=== PATIENT | female | born 1965 | race Caucasian/White ===

== ENCOUNTER 2017-10-23 17:41 | Emergency (ER) | payer MEDICARE ==
--- NOTE | 2017-10-23 18:35 | ER Document Report ---
HPI - HPI Pain Level: 5 Context: Patient is a 52-year-old female with a past medical history significant for fibromyalgia, arthritis who presents emergency department the chief complaint of fall. Patient states that she was carrying her groceries into her home yesterday when she lost balance her right knee buckled underneath her and she fell landing on her right knee and her back. She states that she did hit her head but denies any loss of consciousness, headache, nausea, vomiting, altered mental status, lethargy or confusion. She states that her primary source of pain is her lower back worse on the right side. Patient does admit to previous back surgery at L4-L5. She also admits to pain in her right knee worse with bearing weight and ambulation. Patient states that she has been taking Robaxin and tramadol at home for pain. She denies any urinary/stool incontinence, saddle anesthesia. - CONSTITUTIONAL Constitutional: DENIES: Fever, Chills - EENT EENT: DENIES: Sore Throat, Ear Pain, Eye problems - NEURO Neurology: DENIES: Headache, Weakness, Vision blurred, Dizzinesss / Vertigo - CARDIOVASCULAR Cardiovascular: DENIES: Chest pain - RESPIRATORY Respiratory: DENIES: Trouble Breathing, Coughing - GASTROINTESTINAL Gastrointestinal: DENIES: Abdominal Pain, Black / Bloody Stools - URINARY Urinary: DENIES: Dysuria, Urgency, Frequency - REPRODUCTIVE Reproductive: DENIES: : - MUSCULOSKELETAL Musculoskeletal: REPORTS: Extremity pain - right knee Past Medical History - Social History Smoking Status: Current Every Day Smoker Chew tobacco use (# tins/day): No Frequency of alcohol use: Occasional Drug Abuse: None Family History: Reviewed & Not Pertinent Patient has suicidal ideation: No Patient has homicidal ideation: No - Past Medical History Cardiac Medical History: Reports: Hx Hypercholesterolemia, Hx Hypertension Pulmonary Medical History: Reports: Hx COPD Renal/ Medical History: Denies: Hx Peritoneal Dialysis GI Medical History: Reports: Hx Gastroesophageal Reflux Disease Musculoskeltal Medical History: Reports Hx Arthritis, Reports Hx Fibromyalgia Psychiatric Medical History: Reports: Hx Depression - anxiety Traumatic Medical History: Reports: Hx Fractures - WRIST Past Surgical History: Reports: Hx Section, Hx Cholecystectomy, Hx Hysterectomy, Hx Orthopedic Surgery - left and right knee replacement, spinal fusion lower - Immunizations Hx Diphtheria, Pertussis, Tetanus Vaccination: No Hx Pneumococcal Vaccination: 06/29/09 Vertical Provider Document - CONSTITUTIONAL Agree With Documented VS: Yes Notes: PHYSICAL EXAM GENERAL: Alert, interacts well. HEAD: Normocephalic, atraumatic. EYES: Pupils equal, round, and reactive to light. Extraocular movements intact. ENT: Oral mucosa moist, tongue midline. NECK: Full range of motion. Supple. Trachea midline. EXTREMITIES: Moves all 4 extremities spontaneously. No edema, radial and dorsalis pedis pulses 2/4 bilaterally. No cyanosis. Back: Diffuse bilateral paralumbar muscular skeletal pain that is reproducible palpation without any focal vertebral tenderness, deformities. 5 out of 5 strength both distally and proximally bilateral lower extremities. 2+ patellar reflexes bilaterally. Sensation grossly intact in the bilateral lower extremities. Patient is able to ambulate without difficulty. NEUROLOGICAL: Alert and oriented x4. Normal speech. PSYCH: Normal affect, normal mood. SKIN: Warm, dry, normal turgor. No rashes or lesions noted. - INFECTION CONTROL TRAVEL OUTSIDE OF THE [place] IN LAST 30 DAYS: No Course - Re-evaluation Re-evalutation: 10/23/17 19:33 Lumbar x-ray shows possible deformity of L2 CT was ordered for additional imaging of this area. 10/23/17 20:14 CT shows evidence of osteoarthritis of L2 without any evidence of acute fracture injury. Patient's pain has been controlled with muscle relaxers and tramadol. Did discuss these results with the patient and indicated to follow- up with primary care for any further discomfort.She presents with low back pain without signs of spinal cord compression, cauda equina syndrome, infection, aneurysm, or other serious etiology. The patient is neurologically intact. Given the extremely low risk of these diagnoses further testing and evaluation for these possibilities does not appear to be indicated at this time. The patient has been instructed to return if the symptoms worsen or change in any way. - Vital Signs Vital signs: Temp Pulse Resp BP Pulse Ox 98.7 F 97 20 130/80 H 94 10/23/17 17:51 10/23/17 17:51 10/23/17 17:51 10/23/17 17:51 10/23/17 17:51 - Diagnostic Test Radiology reviewed: Image reviewed, Reports reviewed Discharge - Discharge Clinical Impression: Back pain Qualifiers: Back pain location: low back pain Chronicity: chronic Back pain laterality: midline Sciatica presence: without sciatica Qualified Code(s): M54.5 - Low back pain Knee pain Qualifiers: Chronicity: chronic Laterality: right Qualified Code(s): M25.561 - Pain in right knee Condition: Good Disposition: HOME, SELF-CARE Additional Instructions: LOW BACK PAIN: Three out of every four people will have an episode of disabling back pain during their lifetime. Most commonly the pain is due to straining of the muscles and ligaments in the low back. Usual treatment includes: (1) Rest on a firm surface. Avoid lying on your stomach. (2) Ice pack the painful area. After a few days, gentle heat may be used intermittently to relax the area, or ice packs can be continued. (3) Medication may be needed -- muscle relaxers and antiinflammatory medicines are commonly used. (4) As the back improves, exercises are prescribed to strengthen the back and abdominal muscles. Your doctor will advise you on the proper care for your back at each stage in your recovery. You may be better in a few days -- or healing may take several weeks. If new symptoms of a "herniated disc" (radiation of pain, numbness, or tingling down the back of the leg or weakness in the leg) occur, you should be re-examined. Further testing may be necessary. MUSCLE RELAXERS: Muscle relaxing medications are usually prescribed for acute muscle spasm or injury to the neck and back. They are often combined with antiinflammatory pain medication for increased relief. You may stop the muscle relaxer when the pain and stiffness have improved. Start the medication again if spasms recur. Muscle relaxers may cause drowsiness, especially with the first dose. Do not operate machinery or drive while under the effects of the medication. Most muscle relaxers last up to 24 hours. Do not combine the medication with alcohol. ICE PACKS: Apply ice packs frequently against the painful area. Many different schedules are recommended, such as "20 minutes on, 20 minutes off" or "one hour ice, two hours rest." If you need to work, you may need to go longer between ice treatments. You should plan to have the area ice packed AT LEAST one fourth of the time. The ice should be applied over the wrap, tape, or splint, or over a layer of cloth -- not directly against the skin. Some ice bags have a built-in cloth and can be put directly on the skin. WARM PACKS: After approximately two days, apply gentle heat (such as a heating pad or hot water bottle) for about 20 to 30 minutes about every two hours -- at least four times daily. Warmth and elevation will help you make a more rapid recovery , and will ease the pain considerably. Do not use HOT heat, and never apply heat for longer than 30 minutes. The continuous heat can invisibly damage skin and muscles -- even when no burn is seen on the surface. Damaged muscles can make you MORE sore. FOLLOW-UP CARE: If you have been referred to a physician for follow-up care, call the physician s office for an appointment as you were instructed or within the next two days. If you experience worsening or a significant change in your symptoms, notify the physician immediately or return to the Emergency Department at any time for re-evaluation. Prescriptions: Cyclobenzaprine HCl [Flexeril 10 mg Tablet] 10 mg PO TIDP PRN #15 tab PRN Reason: Ibuprofen [Motrin 800 mg Tablet] 800 mg PO Q8H PRN #30 tab PRN Reason:
--- NOTE | 2017-10-23 19:16 | RADIOLOGY REPORT (SQ) ---
EXAM DESCRIPTION: L SPINE WHOLE COMPLETED DATE/TIME: 10/23/2017 7:07 pm REASON FOR STUDY: fall COMPARISON: None. NUMBER OF VIEWS: Five views including obliques. TECHNIQUE: AP, lateral, oblique, and sacral radiographic images acquired of the lumbar spine. LIMITATIONS: None. FINDINGS: MINERALIZATION: Normal. SEGMENTATION: Normal. No transitional anatomy. ALIGNMENT: Grade 1 anterolisthesis L4 on L5 status post surgical fusion. Alignment is otherwise norm al. VERTEBRAE: There is slight irregularity involving the anterior column of the L2 vertebral body which could represents a nondisplaced fracture. Vertebral body heights are maintained. DISCS: There is mild multilevel degenerative disc disease above fusion level. POSTERIOR ELEMENTS: Pedicles and facets are intact. No pars defect or posterior arch defects. HARDWARE: Intact. PARASPINAL SOFT TISSUES: Normal. PELVIS: Intact as visualized. No fractures or worrisome bone lesions. SI joints intact. OTHER: No other significant finding. IMPRESSION: SLIGHT IRREGULARITY INVOLVING THE ANTERIOR COLUMN OF THE L2 VERTEBRAL BODY WHICH COULD R EPRESENT A NONDISPLACED FRACTURE. CORRELATE WITH LEVEL OF PAIN. NO ADDITIONAL ACUTE OSSEOUS ABNORMALITY OR HARDWARE COMPLICATION IDENTIFIED. TECHNICAL DOCUMENTATION: JOB ID: [id number] [employer]- All Rights Reserved Reading location - IP/workstation name: [email or web address]
--- NOTE | 2017-10-23 19:17 | RADIOLOGY REPORT (SQ) ---
EXAM DESCRIPTION: KNEE RIGHT 4 VIEWS COMPLETED DATE/TIME: 10/23/2017 7:07 pm REASON FOR STUDY: fall COMPARISON: None. NUMBER OF VIEWS: Four views. TECHNIQUE: AP, lateral, and both oblique radiographic images acquired of the right knee. LIMITATIONS: None. FINDINGS: MINERALIZATION: Normal. BONES: No acute fracture or dislocation. No worrisome bone lesions. JOINT: Total knee arthroplasty without complication. SOFT TISSUES: No soft tissue swelling. No radio-opaque foreign body. OTHER: No other significant finding. IMPRESSION: NO ACUTE OSSEOUS ABNORMALITY OR HARDWARE COMPLICATION IDENTIFIED. TECHNICAL DOCUMENTATION: JOB ID: [id number] [employer]- All Rights Reserved Reading location - IP/workstation name: [email or web address]
[2017-10-23] MEDS ORDERED: TRAMADOL HCL 50 MG TABLET PO ONE (19:18)
[2017-10-23] MEDS ORDERED: ONDANSETRON 4 MG TAB.RAPDIS PO ONE (19:18)
--- NOTE | 2017-10-23 19:56 | RADIOLOGY REPORT (SQ) ---
EXAM DESCRIPTION: CT LUMBAR SPINE WITHOUT COMPLETED DATE/TIME: 10/23/2017 7:48 pm REASON FOR STUDY: L2 possible fx on xray COMPARISON: Correlation made to radiograph performed earlier on the same day. TECHNIQUE: Axial images acquired through the lumbar spine without intravenous contrast. Images revi ewed with lung, soft tissue and bone windows. Reconstructed coronal and sagittal MPR images reviewed . All images stored on PACS. All CT scanners at this facility use dose modulation, iterative reconstruction, and/or weight based d osing when appropriate to reduce radiation dose to as low as reasonably achievable (ALARA). [facility]: Dose Right [facility]: CareDose [facility]: Dose Right [facility]: Teradose 4D [facility]: [employer] RADIATION DOSE: mGy. LIMITATIONS: None. FINDINGS: SEGMENTATION: Normal. No transitional anatomy. ALIGNMENT: Normal. VERTEBRAL BODIES: No fractures. No dislocation. No acute findings. DISCS: Status post surgical fusion of the L4-L5 level. There is mild multilevel degenerative disc di sease above and below hardware levels most notable at the L1-L2 level with there is anterior osteophy te for october. PEDICLES, TRANSVERSE PROCESSES: No fractures. No dislocation. No acute findings. FACETS, POSTERIOR ELEMENTS: Multilevel facet arthropathy. No fractures. No dislocation. No spinal stenosis. HARDWARE: Posterior interbody fusion hardware L4-L5 without complication identified. VISUALIZED RIBS: No fractures. SOFT TISSUES: No significant or acute finding in adjacent soft tissues. OTHER: No other significant finding. IMPRESSION: NO ACUTE OSSEOUS ABNORMALITY OR HARDWARE COMPLICATION. DEGENERATIVE CHANGE ABOVE. TECHNICAL DOCUMENTATION: JOB ID: [id number] Quality ID # [id number]: Final reports with documentation of one or more dose reduction techniques (e.g., Au tomated exposure control, adjustment of the mA and/or kV according to patient size, use of iterative reconstruction technique) 2010 [employer]- All Rights Reserved Reading location - IP/workstation name: [email or web address]
[2017-10-23] MEDS ORDERED: CYCLOBENZAPRINE HCL 10 MG TABLET PO ONE (20:04)
[2017-10-23 22:00] VITALS: BP 127/79
== END 2017-10-23 20:30 | disposition home or self-care (01) ==
LOC: ER 17:41
DX: M54.5 Low back pain (principal); M25.561 Pain in right knee; W01.0XXA Fall on same level from slipping, tripping and stumbling without subsequent striking against object, initial encounter; Y93.G9 Activity, other involving cooking and grilling; Y92.007 Garden or yard of unspecified non-institutional (private) residence as the place of occurrence of the external cause; F17.200 Nicotine dependence, unspecified, uncomplicated; E78.00 Pure hypercholesterolemia, unspecified; I10 Essential (primary) hypertension; J44.9 Chronic obstructive pulmonary disease, unspecified; Z90.49 Acquired absence of other specified parts of digestive tract; Z90.710 Acquired absence of both cervix and uterus; Z96.653 Presence of artificial knee joint, bilateral; Z98.1 Arthrodesis status
CPT/HCPCS: 99284; 73564; 72110; 72131; A9270 ×3; S0119

== ENCOUNTER 2019-01-18 18:43 | Emergency (ER) | payer MEDICARE ==
[2019-01-18 22:49] LABS: APPEARANCE,URINE SLIGHTLY-CLOUDY; BILIRUBIN,URINE NEGATIVE (NEGATIVE); COLOR,URINE YELLOW; GLUCOSE, URINE NEGATIVE (NEGATIVE); KETONES,URINE NEGATIVE (NEGATIVE); LEUKOCYTE ESTERASE,URINE NEGATIVE (NEGATIVE); NITRITE,URINE NEGATIVE (NEGATIVE); PROTEIN,URINE NEGATIVE (NEGATIVE); URINE SPECIFIC GRAVITY 1.008; UROBILINOGEN,URINE NEGATIVE mg/dL (<2.0)
[2019-01-18] MEDS ORDERED: ACETAMINOPHEN 325 MG TABLET PO ONE (22:53)
[2019-01-19] MEDS ORDERED: ONDANSETRON HCL INJ/PF 4 MG/2 ML SDV IV ONE (00:39)
[2019-01-19] MEDS ORDERED: MORPHINE SULFATE 10 MG/ML INJ IV ONE (00:39)
--- NOTE | 2019-01-19 00:46 | ER Document Report ---
ED General - General Chief Complaint: Abdominal Pain Stated Complaint: ABDOMINAL PAIN Time Seen by Provider: 01/19/19 00:25 Primary Care Provider: EDGAR RIDDLE NP [Primary Care Provider] - Follow up as needed TRAVEL OUTSIDE OF THE [place] IN LAST 30 DAYS: No - HPI Notes: 53-year-old female to the emergency department with complaints of persistent left-sided abdominal pain for the past 2 weeks with associated diarrhea and nausea vomiting. States that she seen multiple times for this issue and she has been diagnosed with diverticulitis, urinary tract infection, constipation. She states that despite all these diagnoses and medicines to treat her she has continued to have pain. She states that she has an appointment with her GI specialist Dr. Pulido on morning for an EGD. She denies any fevers, chest pain, shortness of breath, leg swelling, headache, syncope. States that her pain does get worse with big deep breath and movement. States that she was seen at [facility] 3 nights ago and had a CT scan that was normal. She states that she was sent home with Phenergan. She uses tramadol and Robaxin at home and states has not been helping her. She has one kidney. She has an appt with her PCP tomorrow AM at 8:50. - Related Data Allergies/Adverse Reactions: Iodinated Contrast- Oral and IV Dye [IV Dye, Iodine Containing] Allergy (Verified 01/18/19 18:47) latex [Latex] Allergy (Verified 01/18/19 18:47) Sulfa (Sulfonamide Antibiotics) Allergy (Verified 01/18/19 18:47) Past Medical History - General Information source: Patient, Relative - Social History Smoking Status: Never Smoker Frequency of alcohol use: None Drug Abuse: None Lives with: Spouse/Significant other Family History: Reviewed & Not Pertinent - Past Medical History Cardiac Medical History: Reports: Hx Hypercholesterolemia, Hx Hypertension Pulmonary Medical History: Reports: Hx COPD Renal/ Medical History: Denies: Hx Peritoneal Dialysis GI Medical History: Reports: Hx Gastroesophageal Reflux Disease Musculoskeletal Medical History: Reports Hx Arthritis, Reports Hx Fibromyalgia Psychiatric Medical History: Reports: Hx Depression - anxiety Traumatic Medical History: Reports: Hx Fractures - WRIST Past Surgical History: Reports: Hx Section, Hx Cholecystectomy, Hx Hysterectomy, Hx Orthopedic Surgery - left and right knee replacement, spinal fusion lower - Immunizations Hx Diphtheria, Pertussis, Tetanus Vaccination: No Hx Pneumococcal Vaccination: 06/29/09 Review of Systems - Review of Systems Constitutional: denies: Chills, Fever EENT: No symptoms reported Cardiovascular: denies: Chest pain, Palpitations, Syncope, Dizziness, Lightheaded Respiratory: denies: Cough, Short of breath Gastrointestinal: Abdominal pain, Diarrhea, Nausea, Vomiting, Poor appetite Genitourinary: denies: Frequency, Flank pain, Hematuria Musculoskeletal: No symptoms reported Skin: No symptoms reported Hematologic/Lymphatic: No symptoms reported Neurological/Psychological: No symptoms reported -: Yes All other systems reviewed and negative Physical Exam - Vital signs Vitals: Temp Pulse Resp BP Pulse Ox 98.4 F 109 H 12 125/80 91 L 01/18/19 19:01 01/18/19 19:01 01/18/19 19:01 01/18/19 19:01 01/18/19 19:01 Interpretation: Normal - General General appearance: Appears well In distress: None - HEENT Head: Normocephalic, Atraumatic Eyes: Normal Pupils: PERRL - Respiratory Respiratory status: No respiratory distress Chest status: Nontender Breath sounds: Normal Chest palpation: Normal - Cardiovascular Rhythm: Regular Heart sounds: Normal auscultation Murmur: No - Abdominal Inspection: Morbidly Obese Distension: No distension Bowel sounds: Normal Tenderness: Tender - There is focal tenderness to palpation to the lateral aspect of the left abdomen just below the ribs. There is mild tenderness to palpation over the left lower quadrant. There is no CVA tenderness. There is no right lower quadrant abdominal pain. Negative McBurney's. Negative Israel's. No rebound, no guarding Organomegaly: No organomegaly - Neurological Neuro grossly intact: Yes Cognition: Normal Orientation: AAOx4 Benavides Coma Scale Eye Opening: Spontaneous Benavides Coma Scale Verbal: Oriented Prasanna Coma Scale Motor: Obeys Commands Prasanna Coma Scale Total: 15 Speech: Normal Motor strength normal: LUE, RUE, LLE, RLE Sensory: Normal - Psychological Associated symptoms: Normal affect, Normal mood - Skin Skin Temperature: Warm Skin Moisture: Dry Skin Color: Normal Course - Re-evaluation Re-evalutation: 01/19/19 01:57 Impression: Left side abdominal pain. She has been in several ERs this week -- had multiple CTs. She was seen here last night. Trended her labs -- they are very reassuring. No UTI on UA -- she is on Keflex currently. WBC WNL, no left shift, renal function reassuring, liver enzymes reassuring. Will discharge home. Will have her follow with PCP as scheduled tomorrow. Patient and agree with the plan. - Vital Signs Vital signs: Temp Pulse Resp BP Pulse Ox 98.4 F 109 H 12 125/80 91 L 01/18/19 19:01 01/18/19 19:01 01/18/19 19:01 01/18/19 19:01 01/18/19 19:01 - Laboratory Result Diagrams: 01/19/19 00:45 01/19/19 00:45 Laboratory results interpreted by me: 01/19/19 00:45 Total Protein 6.1 L Discharge - Discharge Clinical Impression: Left sided abdominal pain, Nausea & vomiting, Diarrhea Condition: Stable Disposition: HOME, SELF-CARE Instructions: Abdominal Pain ([facility]) Additional Instructions: FOLLOW UP WITH YOUR PRIMARY CARE SCHEDULED TOMORROW AND WITH YOUR GI SPECIALIST ON THURSDAY SCHEDULED. TAKE PHENERGAN YOU HAVE AT HOME FOR VOMITING. CONTINUE YOUR ROBAXIN. RETURN IF ANY CHEST, SHORTNESS OF BREATH, WORSENING ABDOMINAL PAIN, OR ANY OTHER CONCERNING SYMPTOMS. Referrals: EDGAR RIDDLE NP [Primary Care Provider] - Follow up tomorrow
[2019-01-19 01:06] LABS: ABSOLUTE BASOPHILS # (AUTO) 0.1 10^3/uL (0.0-0.2); ABSOLUTE EOSINOPHILS # (AUTO) 0.1 10^3/uL (0.0-0.6); ABSOLUTE LYMPHOCYTES (AUTO) 2.7 10^3/uL (0.5-4.7); ABSOLUTE MONOCYTES (AUTO) 0.6 10^3/uL (0.1-1.4); BASOPHILS % (AUTO) 0.6 % (0-2); EOSINOPHILS % (AUTO) 1.6 % (0-6); HEMATOCRIT 36.7 % (36.0-47.0); HEMOGLOBIN 12.5 g/dL (12.0-15.5); LYMPHOCYTES % (AUTO) 28.3 % (13-45); MEAN CORPUSCULAR HEMOGLOBIN 30.1 pg (27.0-33.4); MEAN CORPUSCULAR HGB CONC 33.9 g/dL (32.0-36.0); MEAN CORPUSCULAR VOLUME 89 fl (80-97); MONOCYTES % (AUTO) 6.5 % (3-13); PLATELET COUNT 238 10^3/uL (150-450); RED BLOOD COUNT 4.14 10^6/uL (3.72-5.28); RED CELL DISTRIBUTION WIDTH 13.1 % (11.5-14.0); TOTAL CELLS COUNTED % (AUTO) 100 %; WHITE BLOOD COUNT 9.5 10^3/uL (4.0-10.5)
[2019-01-19] MEDS ORDERED: MORPHINE SULFATE 10 MG/ML INJ IM ONE ×2 (01:08→01:48)
[2019-01-19] MEDS ORDERED: ONDANSETRON 4 MG TAB.RAPDIS PO ONE (01:08)
[2019-01-19 01:23] LABS: ALANINE AMINOTRANSFERASE 31 U/L (9-52); ALKALINE PHOSPHATASE 111 U/L (38-126); ANION GAP 7 (5-19); ASPARTATE AMINO TRANSFERASE 28 U/L (14-36); BILIRUBIN,DIRECT 0.2 mg/dL (0.0-0.4); BILIRUBIN,TOTAL 0.5 mg/dL (0.2-1.3); BLOOD UREA NITROGEN 11 mg/dL (7-20); CALCIUM 9.1 mg/dL (8.4-10.2); CARBON DIOXIDE 27 mmol/L (22-30); CHLORIDE 105 mmol/L (98-107); GLUCOSE 89 mg/dL (75-110); POTASSIUM 3.8 mmol/L (3.6-5.0); TOTAL PROTEIN 6.1 g/dL (6.3-8.2)
[2019-01-19 02:09] VITALS: BP 150/98
== END 2019-01-19 02:25 | disposition home or self-care (01) ==
LOC: ER 18:43
DX: R11.2 Nausea with vomiting, unspecified (principal); R19.7 Diarrhea, unspecified; R10.9 Unspecified abdominal pain; E66.01 Morbid (severe) obesity due to excess calories; E78.00 Pure hypercholesterolemia, unspecified; I10 Essential (primary) hypertension; J44.9 Chronic obstructive pulmonary disease, unspecified; Z90.49 Acquired absence of other specified parts of digestive tract; Z90.710 Acquired absence of both cervix and uterus; Z98.1 Arthrodesis status; Z96.653 Presence of artificial knee joint, bilateral; Z91.040 Latex allergy status; Z88.2 Allergy status to sulfonamides
CPT/HCPCS: 99284; 96372; 36415; 83690; 85025; 80053; 81001; A9270 ×2; J2270; S0119

== ENCOUNTER 2019-05-16 21:42 | Emergency (ER) | payer MEDICARE ==
[2019-05-16] MEDS ORDERED: ONDANSETRON HCL INJ/PF 4 MG/2 ML SDV IV ONE (22:19)
[2019-05-16] MEDS ORDERED: ASPIRIN 81 MG TABLET, CHEWABLE PO ONE (22:37)
[2019-05-16] MEDS ORDERED: IPRATROPIUM/ALBUTEROL 0.5-2.5 MG/3 ML AMPUL NEB ONE (22:37)
--- NOTE | 2019-05-16 22:43 | ER Document Report ---
ED Medical Screen (RME) - General Chief Complaint: Epigastric Pain Stated Complaint: CHEST PAIN,DIFFICULTY BREATHING Time Seen by Provider: 05/16/19 22:33 Primary Care Provider: EDGAR RIDDLE NP [Primary Care Provider] - Follow up as needed Mode of Arrival: Ambulatory Information source: Patient Notes: Patient presents complaining of chest pain epigastric pain. Patient states that she is recently getting over pneumonia and still has a cough although it is improving. Patient does put a history of COPD. I have greeted and performed a rapid initial assessment of this patient. A comprehensive ED assessment and evaluation of the patient, analysis of test results and completion of the medical decision making process will be conducted by additional ED providers. TRAVEL OUTSIDE OF THE [place] IN LAST 30 DAYS: No - Related Data Allergies/Adverse Reactions: Iodinated Contrast Media [IV Dye, Iodine Containing] Allergy (Verified 01/18/19 18:47) latex [Latex] Allergy (Verified 01/18/19 18:47) Sulfa (Sulfonamide Antibiotics) Allergy (Verified 01/18/19 18:47) Home Medications: Amilodipine. lexipro. simvistatin. heartburn Past Medical History - Social History Chew tobacco use (# tins/day): No Frequency of alcohol use: Occasional Drug Abuse: None - Past Medical History Cardiac Medical History: Reports: Hx Hypercholesterolemia, Hx Hypertension Pulmonary Medical History: Reports: Hx COPD Renal/ Medical History: Denies: Hx Peritoneal Dialysis GI Medical History: Reports: Hx Gastroesophageal Reflux Disease Musculoskeltal Medical History: Reports Hx Arthritis, Reports Hx Fibromyalgia Psychiatric Medical History: Reports: Hx Depression - anxiety Traumatic Medical History: Reports: Hx Fractures - WRIST Past Surgical History: Reports: Hx Section, Hx Cholecystectomy, Hx Hysterectomy, Hx Orthopedic Surgery - left and right knee replacement, spinal fusion lower - Immunizations Hx Diphtheria, Pertussis, Tetanus Vaccination: No Physical Exam - Vital signs Vitals: Temp Pulse BP Pulse Ox 98.0 F 107 H 113/76 99 05/16/19 21:58 05/16/19 21:58 05/16/19 21:58 05/16/19 21:58 - Respiratory Respiratory status: No respiratory distress Breath sounds: Nonproductive cough - Abdominal Tenderness: Tender - Epigastric Course - Vital Signs Vital signs: Temp Pulse Resp BP Pulse Ox 98.0 F 107 H 15 167/83 H 95 05/17/19 05:44 05/16/19 21:58 05/17/19 05:04 05/17/19 05:04 05/17/19 05:04 - Laboratory Result Diagrams: 05/16/19 22:38 05/16/19 22:38 Laboratory results interpreted by me: 05/16/19 22:38 WBC 16.6 H Abs Neuts (Manual) 12.9 H Doctor's Discharge - Discharge Clinical Impression: Gastritis, Epigastric pain Condition: Stable Disposition: HOME, SELF-CARE Instructions: Abdominal Pain ([facility]), Gastritis ([facility]) Additional Instructions: Continue your pantoprazole as directed. Follow-up with your primary care physician this week, and consider follow-up with gastroenterology if symptoms do not improve. Return to the ED with worsening or new concerning symptoms of any sort. Referrals: EDGAR RIDDLE INFORMATION SECURITY SYSTEMS INSTRUCTOR [Primary Care Provider] - Follow up as needed
[2019-05-16 22:55] LABS: HEMATOCRIT 41.8 % (36.0-47.0); MEAN CORPUSCULAR HGB CONC 33.6 g/dL (32.0-36.0); MEAN CORPUSCULAR VOLUME 89 fl (80-97); PLATELET COUNT 203 10^3/uL (150-450); RED BLOOD COUNT 4.68 10^6/uL (3.72-5.28); WHITE BLOOD COUNT 16.6 10^3/uL (4.0-10.5)
[2019-05-16 23:10] LABS: ABSOLUTE LYMPHOCYTES# (MANUAL) 3.2 10^3/uL (0.5-4.7); ABSOLUTE MONOCYTES # (MANUAL) 0.5 10^3/uL (0.1-1.4); BASOPHILS % (MANUAL) 0 % (0-2); EOSINOPHILS % (MANUAL) 0 % (0-6); LYMPHOCYTES % (MANUAL) 19 % (13-45); MONOCYTES % (MANUAL) 3 % (3-13); RBC MORPHOLOGY COMMENT NORMO-CYTIC/CHROMIC; SEGMENTED NEUTROPHILS % (MAN) 78 % (42-78); TOTAL CELLS COUNTED 100
[2019-05-16 23:11] LABS: PLATELET COMMENT ADEQUATE
[2019-05-16 23:12] LABS: ALKALINE PHOSPHATASE 93 U/L (38-126); ANION GAP 9 (5-19); ASPARTATE AMINO TRANSFERASE 18 U/L (14-36); BILIRUBIN,DIRECT 0.1 mg/dL (0.0-0.4); BILIRUBIN,TOTAL 0.4 mg/dL (0.2-1.3); BLOOD UREA NITROGEN 17 mg/dL (7-20); CALCIUM 9.6 mg/dL (8.4-10.2); CARBON DIOXIDE 26 mmol/L (22-30); CHLORIDE 103 mmol/L (98-107); GLUCOSE 110 mg/dL (75-110); POTASSIUM 4.2 mmol/L (3.6-5.0); TOTAL PROTEIN 6.5 g/dL (6.3-8.2)
--- NOTE | 2019-05-16 23:23 | RADIOLOGY REPORT (SQ) ---
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 Chest pain. COMPARISON: None. FINDINGS: The heart size is within normal limits. No consolidation, pleural effusion, or pneumothorax is seen. There is mild atelectasis and scarring at the lung bases. No acute bony findings. IMPRESSION: No acute cardiopulmonary disease.
[2019-05-17] MEDS ORDERED: ONDANSETRON HCL INJ/PF 4 MG/2 ML SDV ONE (01:50)
[2019-05-17] MEDS ORDERED: IPRATROPIUM/ALBUTEROL 0.5-2.5 MG/3 ML AMPUL NEB ONE (01:50)
[2019-05-17] MEDS ORDERED: ASPIRIN 81 MG TABLET, CHEWABLE ONE (01:51)
[2019-05-17 03:16] LABS: APPEARANCE,URINE CLEAR; BILIRUBIN,URINE NEGATIVE (NEGATIVE); COLOR,URINE YELLOW; GLUCOSE, URINE NEGATIVE (NEGATIVE); KETONES,URINE NEGATIVE (NEGATIVE); PROTEIN,URINE NEGATIVE (NEGATIVE); UROBILINOGEN,URINE NEGATIVE mg/dL (<2.0)
[2019-05-17] MEDS ORDERED: MORPHINE SULFATE 10 MG/ML INJ IV ONE (03:41)
--- NOTE | 2019-05-17 04:47 | RADIOLOGY REPORT (SQ) ---
EXAM DESCRIPTION: CT ABDOMEN PELVIS WITHOUT IV CONTRAST COMPLETED DATE/TME: 05/17/2019 03:40 CLINICAL HISTORY: 54 years Female, epigastric pain Comparison: CR, L-spine, October 16, 1717. Technique: No contrast. Coronal and sagittal reformat. This exam was performed according to our departmental dose-optimization program, which includes automated exposure control, adjustment of the mA and/or kV according to patient size and/or use of iterative reconstruction technique.[facility]: Dose Right [facility]: CareDose [facility]: Dose Right [facility]: Teradose 4D [facility]: Tradono LIMITATIONS: None Findings: Diffuse gastric wall thickening and nondistention; possible gastritis. Absent right kidney. 13.8 cm left kidney. Posterior L4-L5 hardware fusion and intervertebral disc replacement. Grade 1 L4 anterolisthesis. Mild/moderate L5 vertebral height loss anteriorly. Stable compared with prior radiographs from September 2017. Atelectasis/scar. Stool retention. No ascites. No pneumoperitoneum. Normal appendix. No bowel obstruction. No hydronephrosis or hydroureter. No renal/ureteral stone. No evidence of abdominal aortic aneurysm. Unenhanced lower thorax, abdominopelvic structures, and musculoskeleton appear otherwise grossly unremarkable. Impression: Possible gastritis. Absent right kidney.
[2019-05-17] MEDS ORDERED: MAG HYDROX/AL HYDROX/SIMETH SUSP 30 ML UDCUP PO ONE (05:20)
[2019-05-17] MEDS ORDERED: LIDOCAINE 2% VISCOUS SOLN 20 ML UDCUP PO ONE (05:20)
--- NOTE | 2019-05-17 05:22 | ER Document Report ---
ED General - General Chief Complaint: Epigastric Pain Stated Complaint: CHEST PAIN,DIFFICULTY BREATHING Time Seen by Provider: 05/16/19 22:33 Primary Care Provider: EDGAR RIDDLE NP [Primary Care Provider] - Follow up as needed TRAVEL OUTSIDE OF THE [place] IN LAST 30 DAYS: No - HPI Notes: Patient is a 54-year-old female who presents emergency department for evaluation of epigastric pain and some difficulty breathing. She states she was just recently diagnosed with pneumonia, COPD. She states she was treated for pneumonia and felt better. She states now she feels like there is a gnawing pain in her epigastrium that feels like a band. She is had some nausea and "hot acid" in the back of her throat. She states that she feels worse when she lies down. She saw her primary care provider who started her on an unknown stomach medication, as well as some Robaxin. She states she is really not feeling any better. She denies any melena or hematochezia. Patient had similar symptoms last week and was admitted to [facility]. She had a complete work-up, including negative stress test. - Related Data Allergies/Adverse Reactions: Iodinated Contrast Media [IV Dye, Iodine Containing] Allergy (Verified 01/18/19 18:47) latex [Latex] Allergy (Verified 01/18/19 18:47) Sulfa (Sulfonamide Antibiotics) Allergy (Verified 01/18/19 18:47) Home Medications: Amilodipine. lexipro. simvistatin. heartburn Past Medical History - General Information source: Patient - Social History Smoking Status: Former Smoker Chew tobacco use (# tins/day): No Frequency of alcohol use: Occasional Drug Abuse: None Family History: Reviewed & Not Pertinent Patient has suicidal ideation: No Patient has homicidal ideation: No - Past Medical History Cardiac Medical History: Reports: Hx Hypercholesterolemia, Hx Hypertension Pulmonary Medical History: Reports: Hx COPD Renal/ Medical History: Denies: Hx Peritoneal Dialysis GI Medical History: Reports: Hx Gastroesophageal Reflux Disease Musculoskeletal Medical History: Reports Hx Arthritis, Reports Hx Fibromyalgia Psychiatric Medical History: Reports: Hx Depression - anxiety Traumatic Medical History: Reports: Hx Fractures - WRIST Past Surgical History: Reports: Hx Section, Hx Cholecystectomy, Hx Hysterectomy, Hx Orthopedic Surgery - left and right knee replacement, spinal fusion lower - Immunizations Hx Diphtheria, Pertussis, Tetanus Vaccination: No Hx Pneumococcal Vaccination: 06/29/09 Review of Systems - Review of Systems Constitutional: No symptoms reported EENT: No symptoms reported Cardiovascular: No symptoms reported Respiratory: See HPI Gastrointestinal: See HPI Genitourinary: No symptoms reported Musculoskeletal: No symptoms reported Skin: No symptoms reported Neurological/Psychological: No symptoms reported Physical Exam - Vital signs Vitals: Temp Pulse BP Pulse Ox 98.0 F 107 H 113/76 99 05/16/19 21:58 05/16/19 21:58 05/16/19 21:58 05/16/19 21:58 - Notes Notes: This is an obese 54-year-old female who appears older than her stated age in no acute distress. Vital signs reviewed, please refer to chart. Head is normocephalic, atraumatic. Pupils equal round, reactive to light. Neck is supple without meningismus. Heart is regular rate and rhythm. Lungs are clear to auscultation bilaterally. Abdomen is soft, mildly tender in the epigastrium without rebound or guarding, normoactive bowel sounds throughout. Extremities without cyanosis, clubbing. Posterior calves are nontender. Peripheral pulses are equal. Skin is warm and dry. Patient is awake, alert, neurological exam is nonfocal. Course - Re-evaluation Re-evalutation: 05/17/19 05:18 Patient presents emergency department for evaluation. She had initial laborato ry investigations and imaging is ordered through triage. She states she was concerned that there is something "very serious" going on in her abdomen. Laboratory investigations showed a mild leukocytosis but were otherwise unremarkable. Patient's EKG was different, but the patient just had a negative stress test last week. She had a full cardiac work-up at [facility] per her. It was all found to be negative. Decision was made to proceed with CT scan. CT scan revealed findings consistent with gastritis. Patient's medication history includes a very new prescription for Protonix. This should certainly help this patient with this gastritis. She is encouraged to continue that medication, follow-up closely with gastroenterology. I will go ahead and give her a GI cocktail here. She is to return to the ED with worsening or new concerning symptoms of any sort. - Vital Signs Vital signs: Temp Pulse Resp BP Pulse Ox 97.9 F 107 H 15 143/87 H 98 05/17/19 02:17 05/16/19 21:58 05/17/19 04:01 05/17/19 04:01 05/17/19 04:01 - Laboratory Result Diagrams: 05/16/19 22:38 05/16/19 22:38 Laboratory results interpreted by me: 05/16/19 22:38 WBC 16.6 H Abs Neuts (Manual) 12.9 H - Diagnostic Test Radiology reviewed: Reports reviewed Radiology results interpreted by me: 05/17/19 05:20 Chest X-Ray 05/16/19 22:36 IMPRESSION: No acute cardiopulmonary disease. - EKG Interpretation by Me Additional EKG results interpreted by me: 05/17/19 05:22 Sinus mechanism with a rate of 97 bpm. Normal axis and intervals. ST depression in the inferolateral leads concerning for possible ischemia. This is a change from prior study in 2016 05/17/19 05:23 Discharge - Discharge Clinical Impression: Gastritis, Epigastric pain Condition: Stable Disposition: HOME, SELF-CARE Instructions: Abdominal Pain ([facility]), Gastritis ([facility]) Additional Instructions: Continue your pantoprazole as directed. Follow-up with your primary care physician this week, and consider follow-up with gastroenterology if symptoms do not improve. Return to the ED with worsening or new concerning symptoms of any sort. Referrals: EDGAR RIDDLE NP [Primary Care Provider] - Follow up as needed
[2019-05-17 05:36] VITALS: BP 167/83
--- NOTE | 2019-05-17 07:57 | EKG REPORT ---
SEVERITY:- ABNORMAL ECG - SINUS RHYTHM INFERIOR INFARCT, AGE INDETERMINATE : Confirmed by: Baron Mcclain MD 17-May-2019 07:56:50
== END 2019-05-17 05:55 | disposition home or self-care (01) ==
LOC: ER 21:42
DX: K29.70 Gastritis, unspecified, without bleeding (principal); R10.13 Epigastric pain; R06.00 Dyspnea, unspecified; E78.00 Pure hypercholesterolemia, unspecified; I10 Essential (primary) hypertension; J44.9 Chronic obstructive pulmonary disease, unspecified; Z88.2 Allergy status to sulfonamides; Z91.040 Latex allergy status; Z90.49 Acquired absence of other specified parts of digestive tract; Z90.710 Acquired absence of both cervix and uterus; Z98.1 Arthrodesis status; Z96.653 Presence of artificial knee joint, bilateral
CPT/HCPCS: 93005; 36415; 83690; 85025; 80053; 81001; 84484; 71046; 74176; 93010; A9270 ×3; J3490; J2270; J2405; 94640; 96374; 96375; 99285; J7620

== ENCOUNTER 2019-07-16 19:07 | Emergency (ER) | payer MEDICARE ==
[2019-07-16] MEDS ORDERED: ONDANSETRON HCL INJ/PF 4 MG/2 ML SDV IV ONE (19:39)
[2019-07-16] MEDS ORDERED: NORMAL SALINE 1000 ML 1,000 ML IV ONE (19:39)
--- NOTE | 2019-07-16 19:40 | ER Document Report ---
ED Medical Screen (RME) - General Chief Complaint: Abdominal Pain Stated Complaint: ABDOMINAL PAIN Time Seen by Provider: 07/16/19 19:35 Primary Care Provider: EDGAR RIDDLE NP [Primary Care Provider] - Follow up as needed TRAVEL OUTSIDE OF THE [place] IN LAST 30 DAYS: No - HPI Notes: 07/16/19 19:39 Patient is a 54-year-old female who presents complaining of abdominal distention , abdominal pain, trouble with bowel movements, nausea/vomiting. Patient states that she has been having nausea and vomiting throughout the past 1 to 2 days and pain for the past week. She was seen on July 08 at [facility] and was diagnosed with colitis. She returned 3 days after and was then diagnosed with diverticulitis. She has been on medicine since then, but has been having issues with bowel movements. No fever. I have treated and performed a rapid initial assessment of this patient. A comprehensive ED assessment and evaluation of the patient, analysis of test results and completion of medical decision making process will be conducted by additional ED providers. PHYSICAL EXAMINATION: GENERAL: Well-appearing, well-nourished and in no acute distress. A&Ox4. Answers questions appropriately. Abdomen: Limited exam in triage, but there is generalized tenderness noted. - Related Data Allergies/Adverse Reactions: Iodinated Contrast Media [IV Dye, Iodine Containing] Allergy (Verified 01/18/19 18:47) latex [Latex] Allergy (Verified 01/18/19 18:47) Sulfa (Sulfonamide Antibiotics) Allergy (Verified 01/18/19 18:47) Past Medical History - Past Medical History Cardiac Medical History: Reports: Hx Hypercholesterolemia, Hx Hypertension Pulmonary Medical History: Reports: Hx COPD Renal/ Medical History: Denies: Hx Peritoneal Dialysis GI Medical History: Reports: Hx Gastroesophageal Reflux Disease Musculoskeltal Medical History: Reports Hx Arthritis, Reports Hx Fibromyalgia Psychiatric Medical History: Reports: Hx Depression - anxiety Traumatic Medical History: Reports: Hx Fractures - WRIST Past Surgical History: Reports: Hx Section, Hx Cholecystectomy, Hx Hysterectomy, Hx Orthopedic Surgery - left and right knee replacement, spinal fusion lower - Immunizations Hx Diphtheria, Pertussis, Tetanus Vaccination: No Physical Exam - Vital signs Vitals: Temp Pulse Resp BP Pulse Ox 98 F 109 H 20 150/109 H 97 07/16/19 19:12 07/16/19 19:12 07/16/19 19:12 07/16/19 19:12 07/16/19 19:12 Course - Vital Signs Vital signs: Temp Pulse Resp BP Pulse Ox 98 F 109 H 20 150/109 H 97 07/16/19 19:12 07/16/19 19:12 07/16/19 19:12 07/16/19 19:12 07/16/19 19:12 Doctor's Discharge - Discharge Referrals: EDGAR RIDDLE TURNER AND FORMER AUTOMATIC [Primary Care Provider] - Follow up as needed
[2019-07-16 20:18] LABS: APPEARANCE,URINE CLEAR; BILIRUBIN,URINE NEGATIVE (NEGATIVE); COLOR,URINE STRAW; GLUCOSE, URINE NEGATIVE (NEGATIVE); KETONES,URINE NEGATIVE (NEGATIVE); PROTEIN,URINE NEGATIVE (NEGATIVE); URINE SPECIFIC GRAVITY 1.005; UROBILINOGEN,URINE NEGATIVE mg/dL (<2.0)
[2019-07-16 20:31] LABS: ABSOLUTE BASOPHILS # (AUTO) 0.1 10^3/uL (0.0-0.2); ABSOLUTE EOSINOPHILS # (AUTO) 0.2 10^3/uL (0.0-0.6); ABSOLUTE LYMPHOCYTES (AUTO) 2.4 10^3/uL (0.5-4.7); ABSOLUTE MONOCYTES (AUTO) 0.6 10^3/uL (0.1-1.4); ABSOLUTE NEUT (AUTO) 5.6 10^3/uL (1.7-8.2); BASOPHILS % (AUTO) 0.8 % (0-2); EOSINOPHILS % (AUTO) 2.6 % (0-6); HEMOGLOBIN 13.7 g/dL (12.0-15.5); LYMPHOCYTES % (AUTO) 26.9 % (13-45); MEAN CORPUSCULAR HEMOGLOBIN 31.2 pg (27.0-33.4); MEAN CORPUSCULAR HGB CONC 35.2 g/dL (32.0-36.0); MEAN CORPUSCULAR VOLUME 89 fl (80-97); MONOCYTES % (AUTO) 7.1 % (3-13); PLATELET COUNT 244 10^3/uL (150-450); RED CELL DISTRIBUTION WIDTH 13.6 % (11.5-14.0); SEGMENTED NEUTROPHILS % (AUTO) 62.6 % (42-78); TOTAL CELLS COUNTED % (AUTO) 100 %; WHITE BLOOD COUNT 8.9 10^3/uL (4.0-10.5)
[2019-07-16] MEDS ORDERED: FENTANYL CITRATE INJ/PF 100 MCG/2 ML AMPUL IV ONE (20:45)
--- NOTE | 2019-07-16 20:45 | ER Document Report ---
ED GI/ - General Chief Complaint: Abdominal Pain Stated Complaint: ABDOMINAL PAIN Time Seen by Provider: 07/16/19 19:35 Primary Care Provider: EDGAR RIDDLE NP [Primary Care Provider] - Follow up as needed Notes: Patient is a 54-year-old female that comes to the emergency department for chief complaint of abdominal pain. Pain is worse on the left upper and lower abdomen, she states that she was diagnosed with diverticulitis at [facility], started on cefdinir, Flagyl, hydrocodone, she states that she actually started feeling better after initiating antibiotics on 07/11/2019, however about 3 days ago she states that she stopped having bowel movements, started hurting more, and started vomiting. She states she got worse today and vomited 7 times with increased pain. She denies fever. She tried to give herself an enema with minimal results. She has had a cholecystectomy, hysterectomy, and laparoscopic adhesion removal previously. Past medical history includes hypertension, hyperlipidemia, anxiety/depression, fibromyalgia, COPD. TRAVEL OUTSIDE OF THE [place] IN LAST 30 DAYS: No - Related Data Allergies/Adverse Reactions: Iodinated Contrast Media [IV Dye, Iodine Containing] Allergy (Verified 07/16/19 20:28) latex [Latex] Allergy (Verified 07/16/19 20:28) Sulfa (Sulfonamide Antibiotics) Allergy (Verified 07/16/19 20:28) Past Medical History - General Information source: Patient - Social History Smoking Status: Never Smoker Chew tobacco use (# tins/day): No Frequency of alcohol use: None Drug Abuse: None Lives with: Family Family History: Reviewed & Not Pertinent Patient has suicidal ideation: No Patient has homicidal ideation: No - Past Medical History Cardiac Medical History: Reports: Hx Hypercholesterolemia, Hx Hypertension Pulmonary Medical History: Reports: Hx COPD Renal/ Medical History: Denies: Hx Peritoneal Dialysis GI Medical History: Reports: Hx Gastroesophageal Reflux Disease Musculoskeletal Medical History: Reports Hx Arthritis, Reports Hx Fibromyalgia Psychiatric Medical History: Reports: Hx Depression - anxiety Traumatic Medical History: Reports: Hx Fractures - WRIST Past Surgical History: Reports: Hx Section, Hx Cholecystectomy, Hx Hysterectomy, Hx Orthopedic Surgery - left and right knee replacement, spinal fusion lower - Immunizations Hx Diphtheria, Pertussis, Tetanus Vaccination: No Hx Pneumococcal Vaccination: 06/29/09 Review of Systems - Review of Systems Constitutional: No symptoms reported EENT: No symptoms reported Cardiovascular: No symptoms reported Respiratory: No symptoms reported Gastrointestinal: See HPI Genitourinary: No symptoms reported Female Genitourinary: No symptoms reported Musculoskeletal: No symptoms reported Skin: No symptoms reported Hematologic/Lymphatic: No symptoms reported Neurological/Psychological: No symptoms reported Physical Exam - Vital signs Vitals: Temp Pulse Resp BP Pulse Ox 98 F 109 H 20 150/109 H 97 07/16/19 19:12 07/16/19 19:12 07/16/19 19:12 07/16/19 19:12 07/16/19 19:12 - Notes Notes: GENERAL: Alert, interacts well. No acute distress. HEAD: Normocephalic, atraumatic. EYES: Pupils equal, round, and reactive to light. Extraocular movements intact. ENT: Oral mucosa moist, tongue midline. Oropharynx unremarkable. Airway patent. LUNGS: Clear to auscultation bilaterally, no wheezes, rales, or rhonchi. No respiratory distress. HEART: Regular rate and rhythm. No murmur ABDOMEN: Tender generally over the abdomen, slightly more tender in the mid to upper abdomen. Nonspecific. No guarding. Bowel sounds present but quiet. GENITOURINARY: Deferred EXTREMITIES: Moves all 4 extremities spontaneously. No edema, normal radial and dorsalis pedis pulses bilaterally. No cyanosis. BACK: no cervical, thoracic, lumbar midline tenderness. No saddle anesthesia, normal distal neurovascular exam. Moves all extremities in full range of motion. NEUROLOGICAL: Alert and oriented x3. Normal speech. Cranial nerves II through X II grossly intact. PSYCH: Normal affect, normal mood. SKIN: Warm, dry, normal turgor. No rashes or lesions noted. Course - Re-evaluation Re-evalutation: Patient has tenderness in the entire abdomen, slightly more so in the mid to up per abdomen. She is reporting no bowel movement and multiple episodes of vomiting. She is never had a bowel obstruction but the presentation is concerning. She is still well-appearing however, she is talkative, vital signs unremarkable except for borderline tachycardia. Given IV fluids, symptom management. CBC, chemistry unremarkable, lipase unremarkable, urine shows possible infection but patient is already on Omnicef. Culture placed. KUB nonspecific. CAT scan with oral contrast performed to rule out bowel obstruction. CAT scan indicating gastritis. After symptom management patient was given Carafate, Pepcid, Phenergan by mouth and tolerated this without any difficulty. She also did not vomit any of the oral contrast. She is well-appearing on reevaluation. Because of her ability to tolerate p.o. she will be treated for gastritis as outpatient, she already has close follow-up scheduled with her real time trader. Discussed expectations, follow-up, return cautions. Patie nt states understanding and agreement. - Vital Signs Vital signs: Temp Pulse Resp BP Pulse Ox 98 F 96 18 138/66 H 98 07/17/19 02:39 07/17/19 02:39 07/17/19 02:39 07/17/19 02:39 07/17/19 02:39 - Laboratory Result Diagrams: 07/16/19 20:00 07/16/19 20:00 Laboratory results interpreted by me: 07/16/19 07/16/19 19:48 20:00 Chloride 108 H AST 64 H Leukocyte Esterase Rfl LARGE H Discharge - Discharge Clinical Impression: Abdominal pain Qualifiers: Abdominal location: generalized Qualified Code(s): R10.84 - Generalized abdom inal pain Condition: Stable Disposition: HOME, SELF-CARE Additional Instructions: Your imaging shows prominence of the gastric wall indicating gastritis (inflammation of your upper gastrointestinal tract). Your remaining imaging and work-up did not show any concerning findings. Take Phenergan for nausea, take Carafate and Pepcid as prescribed to help treat this, you can take additional Rolaids, Tums, Maalox, etc. if needed. You can take Tylenol for pain. Avoid NSAIDs, alcohol, smoking, caffeine, spicy food. Start with clear fluids, progress to bland diet. Follow-up with your real time trader for additional evaluation and treatment including possible H. pylori testing. Return if you worsen including uncon trolled vomiting, vomiting blood, black stools, severe pain, fever of 100.4 or greater, or any other concerning or worsening symptoms. Prescriptions: Sucralfate [Carafate 1 gm Tablet] 1 gm PO QID #20 tablet Famotidine [Pepcid 20 mg Tablet] 20 mg PO BID #14 tablet Promethazine HCl [Phenergan 25 mg Tablet] 25 mg PO Q6H PRN #15 tablet PRN Reason: Referrals: EDGAR RIDDLE, WHEEL LOADER OPERATOR [Primary Care Provider] - Follow up as needed
[2019-07-16 20:49] LABS: ALBUMIN 3.9 g/dL (3.5-5.0); ALKALINE PHOSPHATASE 98 U/L (38-126); ANION GAP 6 (5-19); ASPARTATE AMINO TRANSFERASE 64 U/L (14-36); BILIRUBIN,DIRECT 0.3 mg/dL (0.0-0.4); BILIRUBIN,TOTAL 0.3 mg/dL (0.2-1.3); BLOOD UREA NITROGEN 9 mg/dL (7-20); CALCIUM 9.3 mg/dL (8.4-10.2); CARBON DIOXIDE 28 mmol/L (22-30); CHLORIDE 108 mmol/L (98-107); GLUCOSE 101 mg/dL (75-110); POTASSIUM 3.6 mmol/L (3.6-5.0); TOTAL PROTEIN 6.5 g/dL (6.3-8.2)
--- NOTE | 2019-07-16 21:47 | RADIOLOGY REPORT (SQ) ---
EXAM DESCRIPTION: XR ABDOMEN 1 VIEW (KUB) COMPLETED DATE/TME: 07/16/2019 19:38 CLINICAL HISTORY: 54 years, Female, abd pain, n/v COMPARISON: None. NUMBER OF VIEWS: 3 TECHNIQUE: LIMITATIONS: None. FINDINGS: Nonspecific gas pattern. No obstruction or free air. Remote postsurgical change lumbar spine. IMPRESSION: No acute intra-abdominal process is identified copyright 2010 [employer]- All Rights Reserved
[2019-07-16] MEDS ORDERED: HYDROMORPHONE HCL INJ/PF 2 MG/ML AMPULE IV ONE (21:53)
[2019-07-16] MEDS ORDERED: METOCLOPRAMIDE HCL INJ/PF 10 MG/2 ML SDV IV ONE (22:45)
[2019-07-16] MEDS ORDERED: DIPHENHYDRAMINE HCL 50 MG/ML VIAL IV ONE (22:45)
--- NOTE | 2019-07-17 01:32 | RADIOLOGY REPORT (SQ) ---
EXAM DESCRIPTION: CT ABDOMEN PELVIS WITHOUT IV CONTRAST COMPLETED DATE/TME: 07/16/2019 21:38 CLINICAL HISTORY: 54 years Female, vomiting, no recent bowel movement, abd pain Comparison:May 17 2019 Technique: No IV contrast. Oral contrast only. Coronal and sagittal reformat. This exam was performed according to our departmental dose-optimization program, which includes automated exposure control, adjustment of the mA and/or kV according to patient size and/or use of iterative reconstruction technique.[facility]: Dose Right [facility]: CareDose [facility]: Dose Right [facility]: Teradose 4D [facility]: The Wedding Favor LIMITATIONS: None Findings: Cholecystectomy. Grade 1 0.3 cm L4 anterolisthesis, L4-L5 disc replacement, mild to moderate L5 anterior vertebral compression deformity, stable. Atelectasis/scar. Absent right kidney. Uterus not discerned which may indicate prior hysterectomy. Diffuse prominence of the gastric wall may indicate gastritis. No suspicious interval change. No ascites. No pneumoperitoneum. No evidence of appendicitis. Likely normal appendix partially discerned. No bowel obstruction. No hydronephrosis or hydroureter. No renal/ureteral stone. No evidence of abdominal aortic aneurysm. Unenhanced lower thorax, abdominopelvic structures, and musculoskeleton appear otherwise grossly unremarkable. Impression: 1. Diffuse prominence of the gastric wall may indicate gastritis. No suspicious interval change. 2. Absent right kidney.
[2019-07-17] MEDS ORDERED: SUCRALFATE 1 GM TABLET PO ONE (01:45)
[2019-07-17] MEDS ORDERED: FAMOTIDINE 20 MG TABLET PO ONE (01:45)
[2019-07-17] MEDS ORDERED: PROMETHAZINE HCL 25 MG TABLET PO ONE (01:46)
[2019-07-17] MEDS ORDERED: HYDROCODONE/ACETAMINOPHEN 5-325 MG (6 TAB/ER DISP) PO PRN (01:51)
[2019-07-17] MEDS ORDERED: OXYCODONE-ACETAMINOPHEN 5-325 MG TABLET PO ONE (01:51)
[2019-07-17 02:40] VITALS: BP 138/66
== END 2019-07-17 02:40 | disposition home or self-care (01) ==
LOC: ER 19:07
DX: R10.84 Generalized abdominal pain (principal); R10.10 Upper abdominal pain, unspecified; E78.00 Pure hypercholesterolemia, unspecified; I10 Essential (primary) hypertension; J44.9 Chronic obstructive pulmonary disease, unspecified; Z91.040 Latex allergy status; Z90.49 Acquired absence of other specified parts of digestive tract; Z88.2 Allergy status to sulfonamides; Z90.710 Acquired absence of both cervix and uterus; Z96.653 Presence of artificial knee joint, bilateral
CPT/HCPCS: 99284; 96361; 96374; 96375; 36415; 87086; 83690; 85025; 87088; 80053; 81001; 87186; 74018; 74176; A9270 ×5; J1200; J3010; J2765; J1170; J2405; J7030

== ENCOUNTER 2019-09-22 00:34 | Emergency (ER) | payer MEDICARE ==
[2019-09-22] MEDS ORDERED: METOCLOPRAMIDE HCL INJ/PF 10 MG/2 ML SDV IV ONE (01:32)
[2019-09-22] MEDS ORDERED: NORMAL SALINE 1000 ML 1,000 ML IV ONE (01:32)
--- NOTE | 2019-09-22 01:34 | ER Document Report ---
ED Medical Screen (RME) - General Chief Complaint: Numbness Stated Complaint: LEFT SIDE NUMBNESS, EYE PAIN,HEAD PAIN Time Seen by Provider: 09/22/19 01:30 Primary Care Provider: EDGAR RIDDLE NP [Primary Care Provider] - Follow up as needed Notes: 54-year-old female with chief complaint of a headache that started on the morning of 09/21/2019, she states that it went away briefly but came back, she states that she has a loss of vision in the left eye, she states it feels like there is "a black area on the side of my vision on the left". She reports nausea but denies vomiting. She denies focal numbness or weakness, she states she has some numbness in her left leg but this is not new. She states she also feels generally rundown and intermittently she feels vaguely short of breath. She denies chest pain, fever, head injury. TRAVEL OUTSIDE OF THE [place] IN LAST 30 DAYS: No - Related Data Allergies/Adverse Reactions: Iodinated Contrast Media [IV Dye, Iodine Containing] Allergy (Verified 07/16/19 20:28) latex [Latex] Allergy (Verified 07/16/19 20:28) Sulfa (Sulfonamide Antibiotics) Allergy (Verified 07/16/19 20:28) Past Medical History - Past Medical History Cardiac Medical History: Reports: Hx Hypercholesterolemia, Hx Hypertension Pulmonary Medical History: Reports: Hx COPD Renal/ Medical History: Denies: Hx Peritoneal Dialysis GI Medical History: Reports: Hx Gastroesophageal Reflux Disease Musculoskeltal Medical History: Reports Hx Arthritis, Reports Hx Fibromyalgia Psychiatric Medical History: Reports: Hx Depression - anxiety Traumatic Medical History: Reports: Hx Fractures - WRIST Past Surgical History: Reports: Hx Section, Hx Cholecystectomy, Hx Hysterectomy, Hx Orthopedic Surgery - left and right knee replacement, spinal fusion lower - Immunizations Hx Diphtheria, Pertussis, Tetanus Vaccination: No Physical Exam - Vital signs Vitals: Temp Pulse Resp BP Pulse Ox 98.3 F 102 H 16 146/88 H 95 09/22/19 00:41 09/22/19 00:41 09/22/19 00:41 09/22/19 00:41 09/22/19 00:41 - Neurological Neuro grossly intact: Yes Cognition: Normal Orientation: AAOx4 Prasanna Coma Scale Eye Opening: Spontaneous Warren Coma Scale Verbal: Oriented Prasanna Coma Scale Motor: Obeys Commands Warren Coma Scale Total: 15 Speech: Normal Cranial nerves: Normal. 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 A comprehensive ED assessment and evaluation of the patient, analysis of test results and completion of the medical decision making process will be conducted by additional ED providers. - Vital Signs Vital signs: Temp Pulse Resp BP Pulse Ox 98.3 F 102 H 16 146/88 H 95 09/22/19 00:41 09/22/19 00:41 09/22/19 00:41 09/22/19 00:41 09/22/19 00:41 Doctor's Discharge - Discharge Referrals: EDGAR RIDDLE, DOCTOR OF DENTAL MEDICINE [Primary Care Provider] - Follow up as needed
--- NOTE | 2019-09-22 01:48 | ER Document Report ---
ED General - General Chief Complaint: Vision Problem Stated Complaint: LEFT SIDE NUMBNESS, EYE PAIN,HEAD PAIN Time Seen by Provider: 09/22/19 01:30 Primary Care Provider: RENEE GUPTA DO [ACTIVE STAFF] - Follow up tomorrow Notes: Patient is a 54-year-old female with chief complaint of a headache that started on the morning of 09/21/2019, she states that it went away briefly but came back, she states that she has a loss of vision in the left eye, she states it feels like there is "a black area on the side of my vision on the left". She reports nausea but denies vomiting. She denies focal numbness or weakness, she states she has some numbness in her left leg but this is not new. She states she also feels generally rundown and intermittently she feels vaguely short of breath. She denies current shortness of breath. She denies chest pain, fever, head injury. Patient states this morning she was seen by her primary care Dr. Lizarraga, prescribed medication for a migraine, and told to come to the ED if she cont inued to have symptoms or worsened. Past medical history includes hypertension, hyperlipidemia, anxiety/depression, fibromyalgia, COPD. TRAVEL OUTSIDE OF THE [place] IN LAST 30 DAYS: No - Related Data Allergies/Adverse Reactions: Iodinated Contrast Media [IV Dye, Iodine Containing] Allergy (Verified 07/16/19 20:28) latex [Latex] Allergy (Verified 07/16/19 20:28) Sulfa (Sulfonamide Antibiotics) Allergy (Verified 07/16/19 20:28) Home Medications: lamatrogine, cymbalta, amilodipine, rovastatin, tramadol, seroquel, new migraine med, Past Medical History - General Information source: Patient - Social History Smoking Status: Current Every Day Smoker Frequency of alcohol use: None Drug Abuse: None Lives with: Family Family History: Reviewed & Not Pertinent Patient has suicidal ideation: No Patient has homicidal ideation: No - Past Medical History Cardiac Medical History: Reports: Hx Hypercholesterolemia, Hx Hypertension Pulmonary Medical History: Reports: Hx COPD Renal/ Medical History: Denies: Hx Peritoneal Dialysis GI Medical History: Reports: Hx Gastroesophageal Reflux Disease Musculoskeletal Medical History: Reports Hx Arthritis, Reports Hx Fibromyalgia Psychiatric Medical History: Reports: Hx Depression - anxiety Traumatic Medical History: Reports: Hx Fractures - WRIST Past Surgical History: Reports: Hx Section, Hx Cholecystectomy, Hx Hysterectomy, Hx Orthopedic Surgery - left and right knee replacement, spinal fusion lower - Immunizations Hx Diphtheria, Pertussis, Tetanus Vaccination: No Hx Pneumococcal Vaccination: 06/29/09 Review of Systems - Review of Systems Constitutional: See HPI EENT: No symptoms reported Cardiovascular: No symptoms reported Respiratory: See HPI Gastrointestinal: No symptoms reported Genitourinary: No symptoms reported Female Genitourinary: No symptoms reported Musculoskeletal: No symptoms reported Skin: No symptoms reported Hematologic/Lymphatic: No symptoms reported Neurological/Psychological: See HPI Physical Exam - Vital signs Vitals: Temp Pulse Resp BP Pulse Ox 98.3 F 102 H 16 146/88 H 95 09/22/19 00:41 09/22/19 00:41 09/22/19 00:41 09/22/19 00:41 09/22/19 00:41 - Notes Notes: GENERAL: Alert, interacts well. No acute distress. HEAD: Normocephalic, atraumatic. EYES: Pupils equal, round, and reactive to light. Extraocular movements intact. Visual acuity intact. Visual perry intact. ENT: Oral mucosa moist, tongue midline. Oropharynx unremarkable. Airway patent. NECK: Full range of motion. Supple. Trachea midline. LUNGS: Clear to auscultation bilaterally, no wheezes, rales, or rhonchi. No respiratory distress. HEART: Regular rate and rhythm. No murmur ABDOMEN: Soft, non-tender. Non-distended. EXTREMITIES: Moves all 4 extremities spontaneously. No edema, normal radial and dorsalis pedis pulses bilaterally. No cyanosis. BACK: there is some pain in the left paracervical musculature and left trapezius muscles, range of motion intact, no cervical, thoracic, lumbar midline tenderness. No saddle anesthesia, normal distal neurovascular exam. Moves all extremities in full range of motion. NEUROLOGICAL: Alert and oriented x3. Normal speech. Cranial nerves II through XII grossly intact. PSYCH: Normal affect, normal mood. Smiling and talkative SKIN: Warm, dry, normal turgor. No rashes or lesions noted. Course - Re-evaluation Re-evalutation: Patient talkative, well-appearing, does not appear to be in distress. She does not have photophobia, she has no neurological deficits on my exam, she even has a normal visual field evaluation. When I discussed her visual field being normal, patient amended her statement about the "black area" that she mentioned beforehand, she states that she actually can see the area but the "color is little darker coming out of my left eye". She states that the blue gloves look darker using her left eye vision compared to her right. She is denying that she had any visual loss at this time. Other than the headache she has no other reported neurological symptoms. CT of the head is negative. Patient does have some tenderness in the left paracervical and trapezius muscles on exam, she started describing her headache like "a band" around her forehead in addition to this. I suspect tension headache with migraine components. Nonspecific otherwise. She has no other current symptoms after treatment. EKG unremarkable, chest x-ray unremarkable, CBC, chemistry, troponin unremarkable. I have very low suspicion of acute intracranial abnormality. I do suspect headache, possibly complex migraine causing additional symptoms, however symptoms were amended and are strange. I do not feel any additional work-up is indicated, reported symptoms are not suggestive of TIA (based on her normal exam and nonspecific amended symptoms). I did discuss with Dr. Mcintosh. Recommendation is to treat the headache, if color symptoms are still present she can follow-up with ophthalmology. Patient is very agreeable to this. Provided with Fioricet, discussed close follow-up, discussed return precautions. Patient states understanding and agreement. Stable at time of discharge. - Vital Signs Vital signs: Temp Pulse Resp BP Pulse Ox 97.7 F 82 20 155/99 H 96 09/22/19 04:29 09/22/19 04:29 09/22/19 04:29 09/22/19 04:29 09/22/19 04:29 - Laboratory Result Diagrams: 09/22/19 02:00 09/22/19 02:00 Laboratory results interpreted by me: 09/22/19 02:00 WBC 11.2 H Discharge - Discharge Clinical Impression: Visual symptoms Headache Qualifiers: Headache type: unspecified Headache chronicity pattern: acute headache Intracta bility: not intractable Qualified Code(s): R51 - Headache Condition: Stable Disposition: HOME, SELF-CARE Additional Instructions: Your evaluation, symptoms, and response to treatment are very suggestive of a tension headache triggering a migraine. I recommend the Fioricet for tension headaches, recommend heat, gentle massage, and your Robaxin for your neck. After neck muscle pain resolves headache should also resolve. Follow-up with primary care for additional evaluation and management of tension headaches and migraines. Follow-up with the ophthalmology if you continue to have color changes with your vision. See referral. Return if you worsen including returned or severe headache, vomiting, fever, or any other concerning or worsening symptoms. Prescriptions: Butalb/Acetaminophen/Caffeine [Fioricet (50-325-40 mg) Tablet] 1 tab PO Q4HP PRN #20 tab PRN Reason: Referrals: RENEE GUPTA DO [ACTIVE STAFF] - Follow up tomorrow
--- NOTE | 2019-09-22 01:56 | RADIOLOGY REPORT (SQ) ---
INDICATION: headache, visual loss in left eye. COMPARISON: None CORRELATION: None TECHNIQUE: Noncontrast spiral axial CT images were obtained from the skull base to vertex. This exam was performed according to our departmental dose-optimization program, which includes automated exposure control, adjustment of the mA and/or kV according to patient size and/or use of iterative reconstruction techniques. FINDINGS: There is no evidence of acute intracranial hemorrhage, midline shift, mass effect or mass lesion. Rey-white differentiation is normal. There is no evidence of acute large territory infarct. Ventricles and extracerebral spaces are within normal limits, for age. The visualized paranasal sinuses are grossly clear. The orbits and eyeballs are unremarkable. The mastoid air cells are clear. Skull base and calvarium appear intact. IMPRESSION: No acute intracranial process is identified. The cause of the patient's visual loss is not identified on this examination.
--- NOTE | 2019-09-22 02:01 | RADIOLOGY REPORT (SQ) ---
EXAM DESCRIPTION: X-RAY CHEST- One View CLINICAL HISTORY: Weakness COMPARISON: May 16, 2019 TECHNIQUE: Single view of the chest. FINDINGS: There are no discrete new air space infiltrates, pneumothoraces or pleural effusions. The pulmonary vascularity is normal. The cardiomediastinal silhouette is normal in size. No suspicious lytic or blastic osseous lesions are identified. IMPRESSION: There are no acute lung parenchymal findings.
[2019-09-22 02:15] LABS: ABSOLUTE BASOPHILS # (AUTO) 0.1 10^3/uL (0.0-0.2); ABSOLUTE EOSINOPHILS # (AUTO) 0.2 10^3/uL (0.0-0.6); ABSOLUTE MONOCYTES (AUTO) 0.7 10^3/uL (0.1-1.4); ABSOLUTE NEUT (AUTO) 7.2 10^3/uL (1.7-8.2); BASOPHILS % (AUTO) 0.7 % (0-2); EOSINOPHILS % (AUTO) 1.7 % (0-6); HEMATOCRIT 40.5 % (36.0-47.0); HEMOGLOBIN 14.1 g/dL (12.0-15.5); LYMPHOCYTES % (AUTO) 26.7 % (13-45); MEAN CORPUSCULAR HEMOGLOBIN 31.2 pg (27.0-33.4); MEAN CORPUSCULAR HGB CONC 34.9 g/dL (32.0-36.0); MEAN CORPUSCULAR VOLUME 89 fl (80-97); MONOCYTES % (AUTO) 6.7 % (3-13); PLATELET COUNT 238 10^3/uL (150-450); RED BLOOD COUNT 4.53 10^6/uL (3.72-5.28); RED CELL DISTRIBUTION WIDTH 12.6 % (11.5-14.0); SEGMENTED NEUTROPHILS % (AUTO) 64.2 % (42-78); TOTAL CELLS COUNTED % (AUTO) 100 %; WHITE BLOOD COUNT 11.2 10^3/uL (4.0-10.5)
[2019-09-22 02:31] LABS: ALBUMIN 4.1 g/dL (3.5-5.0); ALKALINE PHOSPHATASE 124 U/L (38-126); ANION GAP 9 (5-19); ASPARTATE AMINO TRANSFERASE 21 U/L (14-36); BILIRUBIN,DIRECT 0.3 mg/dL (0.0-0.4); BILIRUBIN,TOTAL 0.3 mg/dL (0.2-1.3); BLOOD UREA NITROGEN 17 mg/dL (7-20); CALCIUM 9.5 mg/dL (8.4-10.2); CARBON DIOXIDE 24 mmol/L (22-30); CHLORIDE 106 mmol/L (98-107); GLUCOSE 103 mg/dL (75-110); POTASSIUM 4.2 mmol/L (3.6-5.0)
[2019-09-22] MEDS ORDERED: DIPHENHYDRAMINE HCL 50 MG/ML VIAL IV ONE (02:44)
[2019-09-22] MEDS ORDERED: KETOROLAC TROMETHAMINE INJ/PF 30 MG/1 ML SDV IV ONE (02:44)
[2019-09-22] MEDS ORDERED: DIAZEPAM 5 MG TABLET PO ONE (04:19)
[2019-09-22 04:30] VITALS: BP 155/99
--- NOTE | 2019-09-22 19:56 | EKG REPORT ---
SEVERITY:- ABNORMAL ECG - SINUS RHYTHM PROBABLE INFERIOR INFARCT, OLD : Confirmed by: Baron Mcclain MD 22-Sep-2019 19:55:50
== END 2019-09-22 04:35 | disposition home or self-care (01) ==
LOC: ER 00:34
DX: H53.8 Other visual disturbances (principal); R51 Headache; R11.0 Nausea; R20.0 Anesthesia of skin; M79.7 Fibromyalgia; I10 Essential (primary) hypertension; J44.9 Chronic obstructive pulmonary disease, unspecified; F17.200 Nicotine dependence, unspecified, uncomplicated; F32.9 Major depressive disorder, single episode, unspecified; E78.5 Hyperlipidemia, unspecified; E78.00 Pure hypercholesterolemia, unspecified; Z79.899 Other long term (current) drug therapy; Z91.041 Radiographic dye allergy status; Z91.040 Latex allergy status; Z88.2 Allergy status to sulfonamides
CPT/HCPCS: 93005; 99284; 96361; 96374; 96375; 36415; 85025; 80053; 84484; 71045; 70450; 93010; A9270; J1200; J1885; J2765; J7030

== ENCOUNTER 2019-09-24 15:57 | Emergency (ER) | payer MEDICARE ==
--- NOTE | 2019-09-24 16:15 | ER Document Report ---
ED Medical Screen (RME) - General Chief Complaint: Chest Pain Stated Complaint: CHEST PAIN Primary Care Provider: FRANDY DUARTE MD [Primary Care Provider] - Follow up as needed Notes: Patient is a 54-year-old white female with a past medical history of hypertension, CKD, chronic tachycardia who presents to the emergency department with a chief complaint of chest pain that began last night. She states over the past couple of days she is just not felt like herself, has felt lethargic and had trouble sleeping. She states last night she started having chest pain that is been constant. She took tramadol for the pain without any significant improvement. I have treated and performed a rapid initial assessment of this patient. A comprehensive ED assessment and evaluation of the patient, analysis of test results and completion of medical decision making process will be conducted by additional ED providers. PHYSICAL EXAMINATION: GENERAL: Well-appearing, well-nourished and in no acute distress. A&Ox4. Answers questions appropriately. TRAVEL OUTSIDE OF THE [place] IN LAST 30 DAYS: No - Related Data Allergies/Adverse Reactions: Iodinated Contrast Media [IV Dye, Iodine Containing] Allergy (Verified 09/24/19 16:13) latex [Latex] Allergy (Verified 09/24/19 16:13) morphine Allergy (Verified 09/24/19 16:13) Sulfa (Sulfonamide Antibiotics) Allergy (Verified 09/24/19 16:13) Past Medical History - Social History Chew tobacco use (# tins/day): No Frequency of alcohol use: None Drug Abuse: None - Past Medical History Cardiac Medical History: Reports: Hx Hypercholesterolemia, Hx Hypertension Pulmonary Medical History: Reports: Hx COPD Renal/ Medical History: Denies: Hx Peritoneal Dialysis GI Medical History: Reports: Hx Gastroesophageal Reflux Disease Musculoskeltal Medical History: Reports Hx Arthritis, Reports Hx Fibromyalgia Psychiatric Medical History: Reports: Hx Depression - anxiety Traumatic Medical History: Reports: Hx Fractures - WRIST Past Surgical History: Reports: Hx Section, Hx Cholecystectomy, Hx Hysterectomy, Hx Orthopedic Surgery - left and right knee replacement, spinal fusion lower - Immunizations Hx Diphtheria, Pertussis, Tetanus Vaccination: No Physical Exam - Vital signs Vitals: Temp Pulse Resp BP Pulse Ox 98.4 F 99 16 119/58 L 95 09/24/19 16:09 09/24/19 16:09 09/24/19 16:09 09/24/19 16:09 09/24/19 16:09 Course - Vital Signs Vital signs: Temp Pulse Resp BP Pulse Ox 98.4 F 99 16 119/58 L 95 09/24/19 16:09 09/24/19 16:09 09/24/19 16:09 09/24/19 16:09 09/24/19 16:09 Doctor's Discharge - Discharge Referrals: FRANDY DUARTE MD [Primary Care Provider] - Follow up as needed
[2019-09-24 16:36] LABS: ABSOLUTE EOSINOPHILS # (AUTO) 0.2 10^3/uL (0.0-0.6); ABSOLUTE LYMPHOCYTES (AUTO) 2.4 10^3/uL (0.5-4.7); ABSOLUTE MONOCYTES (AUTO) 0.4 10^3/uL (0.1-1.4); ABSOLUTE NEUT (AUTO) 5.6 10^3/uL (1.7-8.2); BASOPHILS % (AUTO) 0.5 % (0-2); EOSINOPHILS % (AUTO) 2.7 % (0-6); HEMOGLOBIN 14.1 g/dL (12.0-15.5); LYMPHOCYTES % (AUTO) 27.8 % (13-45); MEAN CORPUSCULAR HEMOGLOBIN 31.3 pg (27.0-33.4); MEAN CORPUSCULAR HGB CONC 35.2 g/dL (32.0-36.0); MEAN CORPUSCULAR VOLUME 89 fl (80-97); PLATELET COUNT 261 10^3/uL (150-450); RED BLOOD COUNT 4.49 10^6/uL (3.72-5.28); RED CELL DISTRIBUTION WIDTH 12.8 % (11.5-14.0); TOTAL CELLS COUNTED % (AUTO) 100 %; WHITE BLOOD COUNT 8.8 10^3/uL (4.0-10.5)
[2019-09-24 16:44] LABS: INTERNATIONAL RATION (INR) 0.91; PROTHROMBIN TIME 12.2 SEC (11.4-15.4)
[2019-09-24 16:45] LABS: PARTIAL THROMBOPLASTIN TIME 28.4 SEC (23.5-35.8)
[2019-09-24 17:02] LABS: ALBUMIN 4.1 g/dL (3.5-5.0); ALKALINE PHOSPHATASE 113 U/L (38-126); ANION GAP 9 (5-19); ASPARTATE AMINO TRANSFERASE 22 U/L (14-36); BILIRUBIN,DIRECT 0.4 mg/dL (0.0-0.4); BILIRUBIN,TOTAL 0.4 mg/dL (0.2-1.3); BLOOD UREA NITROGEN 17 mg/dL (7-20); CALCIUM 9.4 mg/dL (8.4-10.2); CARBON DIOXIDE 26 mmol/L (22-30); CHLORIDE 103 mmol/L (98-107); GLUCOSE 120 mg/dL (75-110); POTASSIUM 4.2 mmol/L (3.6-5.0); TOTAL PROTEIN 6.9 g/dL (6.3-8.2)
--- NOTE | 2019-09-24 17:04 | RADIOLOGY REPORT (SQ) ---
EXAM DESCRIPTION: CHEST 2 VIEWS IMAGES COMPLETED DATE/TIME: 09/24/2019 4:51 pm REASON FOR STUDY: cp COMPARISON: 09/22/2019 TECHNIQUE: Frontal and lateral radiographic views of the chest acquired. NUMBER OF VIEWS: Two view. LIMITATIONS: None. FINDINGS: LUNGS AND PLEURA: No opacities, masses or pneumothorax. No pleural effusion. MEDIASTINUM AND HILAR STRUCTURES: No masses or contour abnormalities. HEART AND VASCULAR STRUCTURES: Heart normal size. No evidence for failure. BONES: No acute findings. HARDWARE: None in the chest. OTHER: No other significant finding. IMPRESSION: NO SIGNIFICANT RADIOGRAPHIC FINDING IN THE CHEST. TECHNICAL DOCUMENTATION: JOB ID: [id number] 2010 [employer]- All Rights Reserved Reading location - IP/workstation name: [email or web address]
--- NOTE | 2019-09-24 17:35 | ER Document Report ---
Entered by DEVON ROBLES SCRIBE 09/24/19 1704 Acting as scribe for:SMITA BROOKS MD ED General - General Chief Complaint: Chest Pain Stated Complaint: CHEST PAIN Time Seen by Provider: 09/24/19 16:31 Primary Care Provider: FRANDY DUARTE MD [Primary Care Provider] - Follow up as needed Information source: Patient Notes: This 54 year old female patient presents to the emergency department today with multiple complaints of reproducible chest wall pain, pain with breathing, a sensation that her "throat is constricted", a lump on her face, left knee pain, right shoulder pain, and a headache. Patient was seen here two days ago for a headache. Patient mentions "I am just dealing with a lot of pain issues right now", adding that "she has a lot of stress which makes her pain worse". Patient has been worked up extensively for her knee and shoulder pain. Patient indicates that her left knee has been replaced in the past and a recent MRI revealed that "it was loose" and needed revision. Patient also states she has a torn rotator cuff that needs surgery. TRAVEL OUTSIDE OF THE [place] IN LAST 30 DAYS: No - Related Data Allergies/Adverse Reactions: Iodinated Contrast Media [IV Dye, Iodine Containing] Allergy (Verified 09/24/19 16:13) latex [Latex] Allergy (Verified 09/24/19 16:13) morphine Allergy (Verified 09/24/19 16:13) Sulfa (Sulfonamide Antibiotics) Allergy (Verified 09/24/19 16:13) Past Medical History - General Information source: Patient, [facility] Records - Social History Smoking Status: Current Every Day Smoker Cigarette use (# per day): Yes - 1/2 ppd Chew tobacco use (# tins/day): No Frequency of alcohol use: None Drug Abuse: None Lives with: Family Family History: Reviewed & Not Pertinent Patient has suicidal ideation: No Patient has homicidal ideation: No - Past Medical History Cardiac Medical History: Reports: Hx Hypercholesterolemia, Hx Hypertension Pulmonary Medical History: Reports: Hx COPD GI Medical History: Reports: Hx Gastroesophageal Reflux Disease Musculoskeletal Medical History: Reports Hx Arthritis, Reports Hx Fibromyalgia Psychiatric Medical History: Reports: Hx Anxiety, Hx Depression Traumatic Medical History: Reports: Hx Fractures Past Surgical History: Reports: Hx Section, Hx Cholecystectomy, Hx Hysterectomy, Hx Orthopedic Surgery - left and right knee replacement, spinal fusion lower - Immunizations Hx Diphtheria, Pertussis, Tetanus Vaccination: No Hx Pneumococcal Vaccination: 06/29/09 Review of Systems - Review of Systems Constitutional: No symptoms reported EENT: See HPI Cardiovascular: See HPI, Chest pain Respiratory: See HPI, Hurts to breathe Gastrointestinal: No symptoms reported Genitourinary: No symptoms reported Female Genitourinary: No symptoms reported Musculoskeletal: See HPI, Joint pain Skin: No symptoms reported Hematologic/Lymphatic: No symptoms reported Neurological/Psychological: See HPI, Headaches -: Yes All other systems reviewed and negative Physical Exam - Vital signs Vitals: Temp Pulse Resp BP Pulse Ox 98.4 F 99 16 119/58 L 95 09/24/19 16:09 09/24/19 16:09 09/24/19 16:09 09/24/19 16:09 09/24/19 16:09 - Notes Notes: Physical Exam: General: Alert, non-toxic appearing, morbidly obese. HEENT: Normocephalic. Atraumatic. PERRL. Extraocular movements intact. Oropharynx clear. Neck: Supple. Posterior cervical musculature tenderness with palpation. Respiratory: No respiratory distress. Coarse breath sounds with forced cough bilaterally. Exquisite chest wall tenderness with palpation, reproducible chest pain. Cardiovascular: Regular rate and rhythm. Abdominal: Morbidly obese. Non-tender. No distension. Normal Bowel Sounds. Back: No gross abnormalities. Extremities: Moves all four extremities. Upper extremities: Normal inspection. Normal ROM. Lower extremities: Normal inspection. No edema. Normal ROM. Neurological: Normal cognition. AAOx4. Normal speech. Psychological: Normal affect. Normal Mood. Skin: Warm. Dry. Normal color. Course - Re-evaluation Re-evalutation: 09/24/19 17:52 Chest x-ray is unremarkable. EKG is unchanged from previous. Troponin is negative. Complaints are all reproducible pain issues, of long duration, and have been addressed multiple times in the past including 2 days ago. 09/24/19 18:01 I went into the room to discuss the findings and recommendations with the patient. She was quite relaxed and comfortable. After reviewing the recommendations, she warranted no could not give her something for her pain, and give her something right now for her muscle spasms. At that time she tried to sit up and lift her left knee and let out loud groans. She does mention that she would like to get into pain management and inquiring if I could refer her. I again reinforced that she needs to see her primary care provider to discuss all of these issues. - Vital Signs Vital signs: Temp Pulse Resp BP Pulse Ox 98.4 F 99 16 119/58 L 95 09/24/19 16:09 09/24/19 16:09 09/24/19 16:09 09/24/19 16:09 09/24/19 16:09 - Laboratory Result Diagrams: 09/24/19 16:24 09/24/19 16:24 Laboratory results interpreted by me: 09/24/19 16:24 Glucose 120 H - Diagnostic Test Radiology reviewed: Image reviewed, Reports reviewed - Chest x-ray does not show any acute radiographic findings. - EKG Interpretation by Me EKG shows normal: Sinus rhythm, [place], Intervals, ST-T Waves. abnormal: QRS Complexes - Nondiagnostic inferior Q waves Rate: Normal - 95 Rhythm: NSR When compared to previous EKG there are: No significant change Discharge - Discharge Clinical Impression: Chest wall pain, Exhaustion Tension type headache Qualifiers: Headache chronicity pattern: episodic headache Intractability: not intractable Qualified Code(s): G44.219 - Episodic tension-type headache, not intractable Fatigue Qualifiers: Fatigue type: unspecified Qualified Code(s): R53.83 - Other fatigue Depression Qualifiers: Depression Type: unspecified Qualified Code(s): F32.9 - Major depressive disorder, single episode, unspecified Condition: Stable Disposition: HOME, SELF-CARE Additional Instructions: Chest Wall Pain: Your chest pain has been diagnosed as coming from the chest wall. This is often caused by straining the muscles or joints in the chest during physical activity, direct trauma, coughing, or vigorous vomiting. Persons with arthritis are especially prone to this type of pain, due to inflammation of the cartilage joints near the breast bone. Occasionally, no cause can be found. Rest from strenuous physical activity. This kind of chest pain is usually made worse by movement of the chest. Depending on the symptoms, we may prescrib e medicine for pain, muscle relaxation, and antiinflammatory effects. If the pain is new, and seems to be due to muscle strain, cold packs can help. Otherwise, apply gentle warmth to the painful area for 15 minutes every hour or two. You should contact the doctor immediately if things change. Further evaluation is needed if you develop a fever or cough, if the nature of the pain changes, or if you become short of breath. Tension Headache: Your problem has been diagnosed as muscle tension headache. This very common type of headache occurs because of tightness in the muscles of the head and neck. The cause may be neck or jaw joint problems, but most commonly the cause is emotional stress. The headache may last hours or days. The treatment of uncomplicated tension headaches is rest and pain medication. Often, the newer antiinflammatory pain medications are prescribed, as these also decrease the irritability of the painful tissues. Muscle relaxers, cold packs, or warm packs are sometimes helpful. Anti-anxiety medication or narcotics are sometimes needed temporarily, but are best avoided in the long run. Your doctor has evaluated your headache problem, and finds no evidence of a serious health problem as a cause for the headache. If your headache becomes more severe, or if new symptoms develop (such as fever, stiff neck, vomiting, or decreasing alertness) you should be re-examined by the physician. Fatigue: Fatigue can be caused by many medical and emotional problems. Fatigue can be an early symptom of infection, or can be caused by chronic infection. It can be a symptom of metabolic diseases like diabetes, hypothyroidism, or anemia. I t can result from sleep problems such as sleep apnea. Fatigue can be a symptom of depression. Overuse of alcohol or caffeine can cause fatigue. Many drugs can cause fatigue, either as a side effect or when withdrawing from the drug. Until the evaluation is complete, try to keep up your normal activities. Get regular sleep hours, but avoid oversleeping. Try to get regular exercise. Eliminate alcohol, caffeine, and any unnecessary drugs, herbs, or medicines (discuss any changes in prescription medicines with your doctor). Contact the doctor if there is any change for the worse. Depression: Your evaluation reveals that you have some depression. While symptoms may be vague, they often include disturbance of sleep, fatigue, loss of appetite, and general loss of interest in life. While depression may be a side effect of drugs, or a reaction to a major change in your life, many cases have no known cause. If depression is acute, and related to a major loss in your life, you can expect it to clear completely with time. If you have been depressed a long time, are prone to repeated bouts of depression or low mood, or have been thinking of suicide, get help. Depression can be treated with anti-depressant medication and counselling. Long-term depression will often take a few weeks to clear, even with appropriate medication. Follow-up care is important. Contact your physician, the hospital emergency center, crisis line, or your counsellor if you are losing control or having self-destructive thoughts. Your chest pain has been shown to be coming from your anterior chest wall. This is not related to your lungs or your heart. Your headache seems to be a muscle tension type headache. You were given a prescription for generic Fioricet 2 days ago to treat the tension type headache. Many of your symptoms such as the exhaustion and fatigue are most likely being made worse by depression. You should continue your regular medications. Take the Fioricet you are prescribed 2 days ago for headaches as needed. Follow-up with your primary care provider on Thursday to review your symptoms and management. RETURN TO THE EMERGENCY ROOM IF ANY NEW OR WORSENING SYMPTOMS. Referrals: FRANDY DUARTE MD [Primary Care Provider] - Follow up as needed I personally performed the services described in the documentation, reviewed and edited the documentation which was dictated to the scribe in my presence, and it accurately records my words and actions.
[2019-09-24 18:10] VITALS: BP 122/78
--- NOTE | 2019-09-24 21:20 | EKG REPORT ---
SEVERITY:- ABNORMAL ECG - SINUS RHYTHM PROBABLE INFERIOR INFARCT, AGE INDETERMINATE : Confirmed by: Baron Mcclain MD 24-Sep-2019 21:19:40
== END 2019-09-24 18:10 | disposition home or self-care (01) ==
LOC: ER 15:57
DX: R07.89 Other chest pain (principal); G44.219 Episodic tension-type headache, not intractable; F32.9 Major depressive disorder, single episode, unspecified; R53.83 Other fatigue; Z91.040 Latex allergy status; Z88.6 Allergy status to analgesic agent; Z88.2 Allergy status to sulfonamides
CPT/HCPCS: 36415; 71046; 80053; 82550; 84484; 85025; 85610; 85730; 93005; 93010; 99284

== ENCOUNTER 2020-01-15 23:46 | Emergency (ER) | payer MEDICARE ==
[2020-01-16] MEDS ORDERED: NORMAL SALINE 1000 ML 1,000 ML IV ONE (00:45)
--- NOTE | 2020-01-16 00:45 | ER Document Report ---
ED Medical Screen (RME) - General Chief Complaint: Chest Pain Stated Complaint: CHEST PAIN ON INSPIRATION Primary Care Provider: FRANDY DUARTE MD [Primary Care Provider] - Follow up as needed Mode of Arrival: Wheelchair Notes: This is a 54-year-old female presents to the emergency room today stating she has heaviness in her chest chest pain with radiation down the left arm as well as diaphoresis. She is 1 pack a day smoker did have bronchitis a week ago while she has not been exposed to anyone with COVID her is on isolation protocol as someone he worked with was exposed. TRAVEL OUTSIDE OF THE [place] IN LAST 30 DAYS: No - Related Data Allergies/Adverse Reactions: Iodinated Contrast Media [IV Dye, Iodine Containing] Allergy (Verified 09/24/19 16:13) latex [Latex] Allergy (Verified 09/24/19 16:13) morphine Allergy (Verified 09/24/19 16:13) Sulfa (Sulfonamide Antibiotics) Allergy (Verified 09/24/19 16:13) Past Medical History - Past Medical History Cardiac Medical History: Reports: Hx Hypercholesterolemia, Hx Hypertension Pulmonary Medical History: Reports: Hx COPD Renal/ Medical History: Denies: Hx Peritoneal Dialysis GI Medical History: Reports: Hx Gastroesophageal Reflux Disease Musculoskeltal Medical History: Reports Hx Arthritis, Reports Hx Fibromyalgia Psychiatric Medical History: Reports: Hx Anxiety, Hx Depression Traumatic Medical History: Reports: Hx Fractures Past Surgical History: Reports: Hx Section, Hx Cholecystectomy, Hx Hysterectomy, Hx Orthopedic Surgery - left and right knee replacement, spinal fusion lower - Immunizations Hx Diphtheria, Pertussis, Tetanus Vaccination: No Physical Exam - Vital signs Vitals: Temp Pulse Resp BP Pulse Ox 97.9 F 88 18 116/75 97 01/16/20 00:13 01/16/20 00:01/16/20 00:01/16/20 00:13 01/16/20 00:13 Course - Vital Signs Vital signs: Temp Pulse Resp BP Pulse Ox 97.9 F 88 18 116/75 97 01/16/20 00:01/16/20 00:01/16/20 00:13 01/16/20 00:13 01/16/20 00:13 Doctor's Discharge - Discharge Referrals: FRANDY DUARTE MD [Primary Care Provider] - Follow up as needed
[2020-01-16 01:23] LABS: APPEARANCE,URINE SLIGHTLY-CLOUDY; BILIRUBIN,URINE MODERATE (NEGATIVE); COLOR,URINE YELLOW; GLUCOSE, URINE NEGATIVE (NEGATIVE); KETONES,URINE NEGATIVE (NEGATIVE); LEUKOCYTE ESTERASE,URINE TRACE (NEGATIVE); NITRITE,URINE NEGATIVE (NEGATIVE); PROTEIN,URINE 30 mg/dL (NEGATIVE); URINE SPECIFIC GRAVITY 1.026; UROBILINOGEN,URINE NEGATIVE mg/dL (<2.0)
--- NOTE | 2020-01-16 01:55 | RADIOLOGY REPORT (SQ) ---
CHEST 1 VIEW on 01/16/2020 at 1:35 AM CLINICAL INDICATION: Chest pain after fall COMPARISON: 09/22/2019 FINDINGS: The lungs are clear. Cardiac, hilar and mediastinal contours are within normal limits. Pulmonary vascularity is within normal limits. No bony abnormality is noted. IMPRESSION: No active disease.
[2020-01-16 02:01] LABS: ABSOLUTE BASOPHILS # (AUTO) 0.1 10^3/uL (0.0-0.2); ABSOLUTE EOSINOPHILS # (AUTO) 0.3 10^3/uL (0.0-0.6); ABSOLUTE LYMPHOCYTES (AUTO) 3.5 10^3/uL (0.5-4.7); ABSOLUTE MONOCYTES (AUTO) 0.7 10^3/uL (0.1-1.4); ABSOLUTE NEUT (AUTO) 5.2 10^3/uL (1.7-8.2); EOSINOPHILS % (AUTO) 3.4 % (0-6); HEMATOCRIT 39.3 % (36.0-47.0); HEMOGLOBIN 13.8 g/dL (12.0-15.5); LYMPHOCYTES % (AUTO) 35.2 % (13-45); MEAN CORPUSCULAR HEMOGLOBIN 31.5 pg (27.0-33.4); MEAN CORPUSCULAR HGB CONC 35.2 g/dL (32.0-36.0); MEAN CORPUSCULAR VOLUME 89 fl (80-97); MONOCYTES % (AUTO) 7.2 % (3-13); PLATELET COUNT 289 10^3/uL (150-450); RED CELL DISTRIBUTION WIDTH 13.8 % (11.5-14.0); SEGMENTED NEUTROPHILS % (AUTO) 53.2 % (42-78); TOTAL CELLS COUNTED % (AUTO) 100 %; WHITE BLOOD COUNT 9.8 10^3/uL (4.0-10.5)
[2020-01-16 02:17] LABS: ALBUMIN 4.2 g/dL (3.5-5.0); ALKALINE PHOSPHATASE 100 U/L (38-126); ANION GAP 8 (5-19); ASPARTATE AMINO TRANSFERASE 23 U/L (14-36); BILIRUBIN,DIRECT 0.1 mg/dL (0.0-0.4); BILIRUBIN,TOTAL 0.4 mg/dL (0.2-1.3); BLOOD UREA NITROGEN 20 mg/dL (7-20); CALCIUM 9.3 mg/dL (8.4-10.2); CARBON DIOXIDE 26 mmol/L (22-30); CHLORIDE 103 mmol/L (98-107); GLUCOSE 110 mg/dL (75-110); POTASSIUM 4.1 mmol/L (3.6-5.0); TOTAL PROTEIN 6.9 g/dL (6.3-8.2)
[2020-01-16] MEDS ORDERED: KETOROLAC TROMETHAMINE INJ/PF 30 MG/1 ML SDV IV ONE (03:56)
--- NOTE | 2020-01-16 04:01 | ER Document Report ---
ED Cardiac - General Chief Complaint: Chest Pain Stated Complaint: CHEST PAIN ON INSPIRATION Time Seen by Provider: 01/16/20 00:46 Primary Care Provider: SADIE FARR MD [ACTIVE STAFF] - Follow up as needed FRANDY DUARTE MD [Primary Care Provider] - Follow up as needed ELIJAH DUNBAR MD [ACTIVE PROVISIONAL STAFF] - Follow up as needed Mode of Arrival: Wheelchair Information source: Patient Notes: 54-year-old female patient with history of COPD presents the emergency department chief complaint of chest pain, cough and shortness of breath. Patient reports chest pain started about 2 hours prior to arrival. She believes this may be related to a COPD exacerbation. Patient also has cough and congestion over the last several days, her was exposed to someone with COVID-19 so she is pending a COVID-19 test. She denies any fever or chills. She states she always feels short of breath but her shortness of breath is slightly worse than her baseline. TRAVEL OUTSIDE OF THE [place] IN LAST 30 DAYS: No - Related Data Allergies/Adverse Reactions: Iodinated Contrast Media [IV Dye, Iodine Containing] Allergy (Verified 09/24/19 16:13) latex [Latex] Allergy (Verified 09/24/19 16:13) morphine Allergy (Verified 09/24/19 16:13) Sulfa (Sulfonamide Antibiotics) Allergy (Verified 09/24/19 16:13) Home Medications: metoprolol Past Medical History - General Information source: Patient - Social History Smoking Status: Current Every Day Smoker Frequency of alcohol use: None Drug Abuse: None Family History: Reviewed & Not Pertinent - Past Medical History Cardiac Medical History: Reports: Hx Hypercholesterolemia, Hx Hypertension Pulmonary Medical History: Reports: Hx COPD Renal/ Medical History: Denies: Hx Peritoneal Dialysis GI Medical History: Reports: Hx Gastroesophageal Reflux Disease Musculoskeletal Medical History: Reports Hx Arthritis, Reports Hx Fibromyalgia Psychiatric Medical History: Reports: Hx Anxiety, Hx Depression Traumatic Medical History: Reports: Hx Fractures Past Surgical History: Reports: Hx Section, Hx Cholecystectomy, Hx H ysterectomy, Hx Orthopedic Surgery - left and right knee replacement, spinal fusion lower - Immunizations Hx Diphtheria, Pertussis, Tetanus Vaccination: No Hx Pneumococcal Vaccination: 06/29/09 Review of Systems - Review of Systems Constitutional: No symptoms reported Cardiovascular: Chest pain Respiratory: Cough, Short of breath, Wheezing -: Yes All other systems reviewed and negative Physical Exam - Vital signs Vitals: Temp Pulse Resp BP Pulse Ox 97.9 F 88 18 116/75 97 01/16/20 00:13 01/16/20 00:13 01/16/20 00:13 01/16/20 00:13 01/16/20 00:13 - Notes Notes: PHYSICAL EXAMINATION: GENERAL: Well-appearing, obese and in no acute distress. HEAD: Atraumatic, normocephalic. EYES: Pupils equal round and reactive to light, extraocular movements intact, c onjunctiva are normal. ENT: Nares patent, oropharynx clear without exudates. Moist mucous membranes. NECK: Normal range of motion, supple without lymphadenopathy LUNGS: Breath sounds clear to auscultation bilaterally and equal. No wheezes rales or rhonchi. HEART: Regular rate and rhythm without murmurs ABDOMEN: Soft, nontender, nondistended abdomen. No guarding, no rebound. No masses appreciated. Female : deferred Musculoskeletal: Normal range of motion, no pitting or edema. No cyanosis. NEUROLOGICAL: Cranial nerves grossly intact. Normal speech, normal gait. Normal sensory, motor exams PSYCH: Normal mood, normal affect. SKIN: Warm, Dry, normal turgor, no rashes or lesions noted. Course - Re-evaluation Re-evalutation: 01/16/20 08:37 Laboratory 01/16/20 01/16/20 01/16/20 01:05 01:49 01:49 WBC 9.8 RBC 4.40 Hgb 13.8 Hct 39.3 MCV 89 MCH 31.5 MCHC 35.2 RDW 13.8 Plt Count 289 Lymph % (Auto) 35.2 Blount % (Auto) 7.2 Eos % (Auto) 3.4 Baso % (Auto) 1.0 Absolute Neuts (auto) 5.2 Absolute Lymphs (auto) 3.5 Absolute Monos (auto) 0.7 Absolute Eos (auto) 0.3 Absolute Basos (auto) 0.1 Seg Neutrophils % 53.2 Sodium 136.5 L Potassium 4.1 Chloride 103 Carbon Dioxide 26 Anion Gap 8 BUN 20 Creatinine 0.85 Est GFR ( Amer) > 60 Est GFR (MDRD) Non-Af > 60 Glucose 110 Calcium 9.3 Total Bilirubin 0.4 Direct Bilirubin 0.1 Neonat Total Bilirubin Not Reportable Neonat Direct Bilirubin Not Reportable Neonat Indirect Bili Not Reportable AST 23 ALT 16 Alkaline Phosphatase 100 Troponin I Total Protein 6.9 Albumin 4.2 Urine Color YELLOW Urine Appearance SLIGHTLY-CLOUDY Urine pH 5.0 Ur Specific [place] 1.026 Urine Protein 30 H Urine Glucose (UA) NEGATIVE Urine Ketones NEGATIVE Urine Blood NEGATIVE Urine Nitrite NEGATIVE Urine Bilirubin MODERATE H Urine Urobilinogen NEGATIVE Ur Leukocyte Esterase TRACE H Urine WBC (Auto) 4 Urine RBC (Auto) 0 U Hyaline Cast (Auto) 1 Urine Bacteria (Auto) 2+ Squamous Epi Cells Auto 5 Urine Mucus (Auto) RARE Urine Ascorbic Acid NEGATIVE 01/16/20 01/16/20 01/16/20 01:49 04:21 07:20 WBC RBC Hgb Hct MCV MCH MCHC RDW Plt Count Lymph % (Auto) Blount % (Auto) Eos % (Auto) Baso % (Auto) Absolute Neuts (auto) Absolute Lymphs (auto) Absolute Monos (auto) Absolute Eos (auto) Absolute Basos (auto) Seg Neutrophils % Sodium Potassium Chloride Carbon Dioxide Anion Gap BUN Creatinine Est GFR ( Amer) Est GFR (MDRD) Non-Af Glucose Calcium Total Bilirubin Direct Bilirubin Neonat Total Bilirubin Neonat Direct Bilirubin Neonat Indirect Bili AST ALT Alkaline Phosphatase Troponin I < 0.012 < 0.012 < 0.012 Total Protein Albumin Urine Color Urine Appearance Urine pH Ur Specific [place] Urine Protein Urine Glucose (UA) Urine Ketones Urine Blood Urine Nitrite Urine Bilirubin Urine Urobilinogen Ur Leukocyte Esterase Urine WBC (Auto) Urine RBC (Auto) U Hyaline Cast (Auto) Urine Bacteria (Auto) Squamous Epi Cells Auto Urine Mucus (Auto) Urine Ascorbic Acid Chest X-Ray 01/16/20 00:45 IMPRESSION: No active disease. Patient's chest pain has waxed and waned in the emergency department. She was given nitroglycerin, this did not change her pain. Patient's pain was relieved with Toradol and morphine. Patient has had a negative cardiac work-up today. We did end up doing 3 troponins because of the time of onset of her pain. She is requesting 1 more dose of pain medication prior to discharge. This will be given. I did recommend that she follow-up with cardiology for consideration of a stress test because she has not had one recently. Patient is agreeable to this plan. ED return precautions discussed. We will start patient on medications for presumed COPD exacerbation. Patient is also pending her COVID- 19 test. I reinforced the need to self quarantine. - Vital Signs Vital signs: Temp Pulse Resp BP Pulse Ox 97.6 F 88 17 121/86 H 96 01/16/20 08:56 01/16/20 00:13 01/16/20 08:44 01/16/20 08:45 01/16/20 08:01 - Laboratory Result Diagrams: 01/16/20 01:49 01/16/20 01:49 Laboratory results interpreted by me: 01/16/20 01/16/20 01:05 01:49 Sodium 136.5 L Urine Protein 30 H Urine Bilirubin MODERATE H Ur Leukocyte Esterase TRACE H - Diagnostic Test Radiology reviewed: Image reviewed, Reports reviewed - EKG Interpretation by Me EKG shows normal: Sinus rhythm Rate: Normal Rhythm: NSR - Rate 88, QTc 444, no ST segment elevations or depressions to suggest ischemia. No change from previous EKG on file. Discharge - Discharge Clinical Impression: COPD exacerbation Chest pain Qualifiers: Chest pain type: unspecified Qualified Code(s): R07.9 - Chest pain, unspecified Condition: Stable Disposition: HOME, SELF-CARE Additional Instructions: You were seen for a COPD exacerbation. Your symptoms improved with treatment here in the emergency department. However, it is very important that you return to the emergency department immediately if you began to have worsening difficu lty breathing that does not respond to your normal home nebulizers. You are also being sent home on a five-day course of steroids that you should start taking tomorrow. Please also take the antibiotics as prescribed. Please also follow closely with your primary care physician. You should eturn to emergency department if you develop fever greater than 101, persistent cough, persistent vomiting, pass out, or any other symptoms that are concerning to you. Please follow-up with cardiology. I have enclosed their phone number below. Prescriptions: Benzonatate [Tessalon Perles 100 mg Capsule] 1 - 2 tab PO Q8HP PRN #30 capsule PRN Reason: Prednisone [Deltasone 20 mg Tablet] 2 tab PO DAILY 5 Days #10 tablet Doxycycline Hyclate [Vibramycin 100 mg Tablet] 100 mg PO BID #10 tablet Referrals: FRANDY DUARTE MD [Primary Care Provider] - Follow up as needed ELIJAH DUNBAR MD [ACTIVE PROVISIONAL STAFF] - Follow up as needed SADIE FARR MD [ACTIVE STAFF] - Follow up as needed
[2020-01-16] MEDS: NITROGLYCERIN 0.4 MG/TAB 25 TAB/BOTTLE SL PRN ×3 (05:30→05:40)
[2020-01-16] MEDS ORDERED: FENTANYL CITRATE INJ/PF 100 MCG/2 ML AMPUL IV ONE (06:18)
--- NOTE | 2020-01-16 07:59 | EKG REPORT ---
SEVERITY:- BORDERLINE ECG - SINUS RHYTHM PROBABLE LEFT ATRIAL ABNORMALITY : Confirmed by: Rissa Loera 16-Jan-2020 07:58:36
[2020-01-16] MEDS ORDERED: HYDROCODONE/ACETAMINOPHEN 5-325 MG (6 TAB/ER DISP) PO PRN (08:22)
[2020-01-16 08:56] VITALS: BP 121/86
== END 2020-01-16 08:40 | disposition home or self-care (01) ==
LOC: ER 23:46
DX: R07.1 Chest pain on breathing (principal); J44.1 Chronic obstructive pulmonary disease with (acute) exacerbation; R05 Cough; R06.02 Shortness of breath; E66.9 Obesity, unspecified; F17.200 Nicotine dependence, unspecified, uncomplicated; I10 Essential (primary) hypertension; Z79.899 Other long term (current) drug therapy; Z91.041 Radiographic dye allergy status; Z88.5 Allergy status to narcotic agent; Z88.2 Allergy status to sulfonamides; Z20.828 Contact with and (suspected) exposure to other viral communicable diseases
CPT/HCPCS: 93005; 99284; 96361; 96374; 36415; 85025; 80053; 81001; 84484; 71045; 93010; J3010; J1885; A9270 ×2; J7030

== ENCOUNTER 2020-01-19 22:14 | Emergency (ER) | payer MEDICARE ==
[2020-01-19] MEDS ORDERED: ASPIRIN 81 MG TABLET, CHEWABLE PO ONE (22:37)
[2020-01-19] MEDS ORDERED: NITROGLYCERIN 0.4 MG/TAB 25 TAB/BOTTLE SL PRN (22:37)
--- NOTE | 2020-01-19 22:44 | ER Document Report ---
ED Medical Screen (RME) - General Chief Complaint: Chest Pain Stated Complaint: CHEST PAIN, SOB, DIZZINESS Time Seen by Provider: 01/19/20 22:37 Primary Care Provider: SADIE FARR MD [Primary Care Provider] - Follow up as needed Mode of Arrival: Wheelchair Information source: Patient Notes: Patient is a 54-year-old female comes emergency room complaining of chest pain. She also complains of dizziness and hypotension. Patient states that at home today she attempted to stand up and her heart rate went to 104 and her blood pressure dropped down to 95/45. She does state that she has had some anterior chest pain with jaw and neck pain. She is scheduled to have a outpatient stress test by her primary care provider on February 12 but [facility] she has any return of chest pain which she did today. She also states she is having increasing shortness of breath as well. She took 281 mg aspirin prior to arrival and states her pain is still a 7 out of 10. She denies any history of diabetes but she does state that she has a history of renal failure that is not dialysis treated at present. She also had a right shoulder repair back in November 242019. And she does continue to smoke. Physical examination: Patient is a well-nourished well-developed morbidly obese 54-year-old female who is in no apparent distress on examination this evening however she does appear to be uncomfortable. Cardiac showed regular rate and rhythm at around 79 beats a minute. Lungs: Bilateral breath sounds breath sounds decreased throughout secondary to body habitus most likely although no rhonchi rales or wheeze are heard. Abdomen: Bowel sounds present all 4 quads nontender in a sitting position. I have greeted and performed a rapid initial assessment of this patient. A comprehensive ED assessment and evaluation of the patient, analysis of test results and completion of the medical decision making process will be conducted by additional ED providers. Dictation of this chart was performed using voice recognition software; therefore, there may be some unintended grammatical errors. TRAVEL OUTSIDE OF THE [place] IN LAST 30 DAYS: No - Related Data Allergies/Adverse Reactions: Iodinated Contrast Media [IV Dye, Iodine Containing] Allergy (Verified 09/24/19 16:13) latex [Latex] Allergy (Verified 09/24/19 16:13) morphine Allergy (Verified 09/24/19 16:13) Sulfa (Sulfonamide Antibiotics) Allergy (Verified 09/24/19 16:13) Past Medical History - Past Medical History Cardiac Medical History: Reports: Hx Hypercholesterolemia, Hx Hypertension Pulmonary Medical History: Reports: Hx COPD Renal/ Medical History: Denies: Hx Peritoneal Dialysis GI Medical History: Reports: Hx Gastroesophageal Reflux Disease Musculoskeltal Medical History: Reports Hx Arthritis, Reports Hx Fibromyalgia Psychiatric Medical History: Reports: Hx Anxiety, Hx Depression Traumatic Medical History: Reports: Hx Fractures Past Surgical History: Reports: Hx Section, Hx Cholecystectomy, Hx Hysterectomy, Hx Orthopedic Surgery - left and right knee replacement, spinal fusion lower - Immunizations Hx Diphtheria, Pertussis, Tetanus Vaccination: No Physical Exam - Vital signs Vitals: Temp Pulse Resp BP Pulse Ox 98.9 F 79 16 126/99 H 97 01/19/20 22:28 01/19/20 22:28 01/19/20 22:28 01/19/20 22:28 01/19/20 22:28 Course - Vital Signs Vital signs: Temp Pulse Resp BP Pulse Ox 98.9 F 79 16 126/99 H 97 01/19/20 22:28 01/19/20 22:28 01/19/20 22:28 01/19/20 22:28 01/19/20 22:28 Doctor's Discharge - Discharge Referrals: SADIE FARR MD [Primary Care Provider] - Follow up as needed
--- NOTE | 2020-01-19 23:38 | RADIOLOGY REPORT (SQ) ---
EXAM DESCRIPTION: XR CHEST 1 VIEW COMPLETED DATE/TME: 01/19/2020 22:38 CLINICAL HISTORY: 54 years, Female, Short of breath COMPARISON: 01/16/2020 chest NUMBER OF VIEWS: 1 TECHNIQUE: Portable chest LIMITATIONS: None. FINDINGS: The heart size is normal. Postsurgical change of the right shoulder. Coarsened interstitial changes bilaterally may reflect mild interstitial pneumonitis. No confluent airspace opacity or pneumothorax IMPRESSION: Findings suggestive of mild interstitial pneumonitis copyright 2010 [employer]- All Rights Reserved
--- NOTE | 2020-01-20 01:14 | EKG REPORT ---
SEVERITY:- ABNORMAL ECG - SINUS RHYTHM NONSPECIFIC INTRAVENTRICULAR CONDUCTION DELAY CONSIDER ANTERIOR INFARCT ST DEPRESSION, CONSIDER ISCHEMIA, INF LEADS : Confirmed by: Rissa Loera 20-Jan-2020 01:13:11
[2020-01-20 01:15] LABS: ABSOLUTE BASOPHILS # (AUTO) 0.1 10^3/uL (0.0-0.2); ABSOLUTE LYMPHOCYTES (AUTO) 1.9 10^3/uL (0.5-4.7); ABSOLUTE MONOCYTES (AUTO) 0.4 10^3/uL (0.1-1.4); ABSOLUTE NEUT (AUTO) 9.2 10^3/uL (1.7-8.2); BASOPHILS % (AUTO) 0.5 % (0-2); HEMATOCRIT 40.8 % (36.0-47.0); HEMOGLOBIN 13.8 g/dL (12.0-15.5); LYMPHOCYTES % (AUTO) 16.6 % (13-45); MEAN CORPUSCULAR HEMOGLOBIN 30.3 pg (27.0-33.4); MEAN CORPUSCULAR HGB CONC 33.8 g/dL (32.0-36.0); MEAN CORPUSCULAR VOLUME 90 fl (80-97); MONOCYTES % (AUTO) 3.2 % (3-13); PLATELET COUNT 302 10^3/uL (150-450); RED BLOOD COUNT 4.55 10^6/uL (3.72-5.28); RED CELL DISTRIBUTION WIDTH 13.5 % (11.5-14.0); SEGMENTED NEUTROPHILS % (AUTO) 79.7 % (42-78); TOTAL CELLS COUNTED % (AUTO) 100 %; WHITE BLOOD COUNT 11.5 10^3/uL (4.0-10.5)
[2020-01-20] MEDS ORDERED: ASPIRIN 81 MG TABLET, CHEWABLE PO ONE (01:15)
[2020-01-20 01:34] LABS: ALBUMIN 4.5 g/dL (3.5-5.0); ALKALINE PHOSPHATASE 99 U/L (38-126); ANION GAP 7 (5-19); ASPARTATE AMINO TRANSFERASE 23 U/L (14-36); BILIRUBIN,DIRECT 0.1 mg/dL (0.0-0.4); BILIRUBIN,TOTAL 0.3 mg/dL (0.2-1.3); BLOOD UREA NITROGEN 27 mg/dL (7-20); CALCIUM 9.6 mg/dL (8.4-10.2); CARBON DIOXIDE 26 mmol/L (22-30); CHLORIDE 106 mmol/L (98-107); GLUCOSE 147 mg/dL (75-110); POTASSIUM 4.6 mmol/L (3.6-5.0); TOTAL PROTEIN 7.1 g/dL (6.3-8.2)
[2020-01-20] MEDS ORDERED: FENTANYL CITRATE INJ/PF 100 MCG/2 ML AMPUL IV ONE (02:12)
[2020-01-20] MEDS ORDERED: NORMAL SALINE 1000 ML 1,000 ML IV ONE (02:12)
--- NOTE | 2020-01-20 02:13 | ER Document Report ---
ED General - General Chief Complaint: Chest Pain Stated Complaint: CHEST PAIN, SOB, DIZZINESS Time Seen by Provider: 01/19/20 22:37 Mode of Arrival: Wheelchair Notes: Patient is a 54 year old female that comes to the emergency department for chief complaint of lightheadedness and feeling like she is going to pass out, she also has pain across her chest, intermittent cough. She states that she frequently has low blood pressure at night and frequently feels dizzy but it felt worse tonight she became concerned. She was evaluated on 01/13/2020, placed on prednisone and doxycycline for diagnosed COPD exacerbation, she states she has been taking these medications. She continues to smoke. She states that since she had shoulder surgery in October she has been "sitting around a lot" but today she feels like she "went outside and overdid it". She has a history of hypertension, hyperlipidemia, obesity. She denies recent travel, history of blood clot, history of IA, history of diabetes. She denies family history of blood clot or IA. TRAVEL OUTSIDE OF THE [place] IN LAST 30 DAYS: No - Related Data Allergies/Adverse Reactions: Iodinated Contrast Media [IV Dye, Iodine Containing] Allergy (Verified 09/24/19 16:13) latex [Latex] Allergy (Verified 09/24/19 16:13) morphine Allergy (Verified 09/24/19 16:13) Sulfa (Sulfonamide Antibiotics) Allergy (Verified 09/24/19 16:13) Home Medications: metoprolol, robaxin, duloxetine, liness, quetiapine, amilodipine, buspar, rosuvastatin, lamotrigine, tramadsol, pantoprazole, elavil, olmesartan, symbicort. Past Medical History - General Information source: Patient - Social History Smoking Status: Current Every Day Smoker Family History: Reviewed & Not Pertinent Patient has homicidal ideation: No - Past Medical History Cardiac Medical History: Reports: Hx Hypercholesterolemia, Hx Hypertension Pulmonary Medical History: Reports: Hx COPD Renal/ Medical History: Denies: Hx Peritoneal Dialysis GI Medical History: Reports: Hx Gastroesophageal Reflux Disease Musculoskeletal Medical History: Reports Hx Arthritis, Reports Hx Fibromyalgia Psychiatric Medical History: Reports: Hx Anxiety, Hx Depression Traumatic Medical History: Reports: Hx Fractures Past Surgical History: Reports: Hx Section, Hx Cholecystectomy, Hx Hysterectomy, Hx Orthopedic Surgery - left and right knee replacement, spinal fusion lower - Immunizations Hx Diphtheria, Pertussis, Tetanus Vaccination: No Hx Pneumococcal Vaccination: 06/29/09 Review of Systems - Review of Systems Constitutional: See HPI EENT: No symptoms reported Cardiovascular: See HPI Respiratory: See HPI Gastrointestinal: No symptoms reported Genitourinary: No symptoms reported Female Genitourinary: No symptoms reported Musculoskeletal: See HPI Skin: No symptoms reported Hematologic/Lymphatic: No symptoms reported Neurological/Psychological: No symptoms reported Physical Exam - Vital signs Vitals: Temp Pulse Resp BP Pulse Ox 98.9 F 79 16 126/99 H 97 01/19/20 22:28 01/19/20 22:28 01/19/20 22:28 01/19/20 22:28 01/19/20 22:28 - Notes Notes: GENERAL: Alert, interacts well. No acute distress. HEAD: Normocephalic, atraumatic. EYES: Pupils equal, round, and reactive to light. Extraocular movements intact. ENT: Oral mucosa moist, tongue midline. Oropharynx unremarkable. Airway patent. NECK: Full range of motion. Supple. Trachea midline. No lymphadenopathy. LUNGS: Occasional painful coughing episodes, pain with deep breath, specific reproducible chest wall tenderness over the mid to upper chest anteriorly with no crepitus, erythema, or severe tenderness. No signs of trauma. Otherwise unremarkable. No respiratory distress. HEART: Regular rate and rhythm. No murmur ABDOMEN: Soft, non-tender. Non-distended. EXTREMITIES: Moves all 4 extremities spontaneously. No edema, normal radial and dorsalis pedis pulses bilaterally. No cyanosis. BACK: no cervical, thoracic, lumbar midline tenderness. No saddle anesthesia, normal distal neurovascular exam. Moves all extremities in full range of motion. NEUROLOGICAL: Alert and oriented x3. Normal speech. Cranial nerves II through XII grossly intact. Strength 5/5 in all extremities. PSYCH: Normal affect, normal mood. SKIN: Warm, dry, normal turgor. No rashes or lesions noted. Course - Re-evaluation Re-evalutation: On my exam patient has very specific chest wall pain in the locations of pain that she indicates, this is reproducible. Patient also has occasional painful cough. Patient has had symptoms going on since she was evaluated here a few days ago, patient also frequently gets the lightheadedness. After IV fluids and pain medication patient has no complaints, we checked orthostatic vital signs and these were normal. CBC shows mild leukocytosis, nonspecific given steroids, chemistry nonspecific, troponin is not elevated, BNP is borderline, chest x-ray shows possible mild interstitial pneumonitis. Lungs are clear, no hypoxia, no respiratory distress, no concerning respiratory symptoms except occasional coughing episodes. D-dimer is negative. Overall very low suspicion of acute emergent intrathoracic etiology or ACS. Patient is requesting something for the cough so she can sleep. Patient was given dexamethasone as she has finished her prednisone, she was given this for chest wall pain, possible pleurisy. Discussed medications, expectations, follow-up, and return precautions. Patient states understanding and agreement. Stable and well-appearing at time of discharge. - Vital Signs Vital signs: Temp Pulse Resp BP Pulse Ox 98.9 F 71 22 H 131/90 H 96 01/19/20 22:28 01/20/20 03:54 01/20/20 04:01 01/20/20 04:00 01/20/20 04:01 - Laboratory Result Diagrams: 01/20/20 01:00 01/20/20 01:00 Laboratory results interpreted by me: 01/20/20 01/20/20 01/20/20 01:00 01:00 02:27 WBC 11.5 H Absolute Neuts (auto) 9.2 H Seg Neutrophils % 79.7 H BUN 27 H Est GFR ( Amer) 59 L Est GFR (MDRD) Non-Af 49 L Glucose 147 H NT-Pro-B Natriuret Pep 422 H - EKG Interpretation by Me Additional EKG results interpreted by me: EKG shows sinus rhythm at a rate of 79, QTc prolonged at 500, normal axis, no T wave inversions or ST segment changes in consecutive leads, no significant change from prior. Discharge - Discharge Clinical Impression: Cough, Dizziness, Chest wall pain Chest pain Qualifiers: Chest pain type: unspecified Qualified Code(s): R07.9 - Chest pain, unspecified Condition: Stable Disposition: HOME, SELF-CARE Additional Instructions: Complete the antibiotic you have been taking. You have been treated for the inflammation in your lungs and the suspected inflammation in your chest/lungs (pleurisy). Take the medication for cough at night only if needed, stop smoking, follow-up with primary care closely. Return if you worsen including severe worsening pain, difficulty breathing, fever, or any other concerning symptoms. Prescriptions: Promethazine HCl/Codeine [Prometh-Codein 6.25-10 mg/5 ml] 5 ml PO QHS #100 ml
[2020-01-20] MEDS ORDERED: PROMETHAZINE HCL 25 MG TABLET PO ONE (02:54)
[2020-01-20 03:13] LABS: NT PRO BNP 422 pg/mL (<125)
[2020-01-20 03:16] LABS: TROPONIN I < 0.012 ng/mL
[2020-01-20] MEDS ORDERED: DEXAMETHASONE SOD PHOS INJ 10 MG/1 ML VIAL IV ONE (04:25)
[2020-01-20] MEDS ORDERED: HYDROCODONE/ACETAMINOPHEN 5-325 MG TABLET PO ONE (04:25)
[2020-01-20 04:35] VITALS: BP 131/90
--- NOTE | 2020-01-22 19:21 | EKG REPORT ---
SEVERITY:- NORMAL ECG - SINUS RHYTHM : Confirmed by: Rissa Loera 22-Jan-2020 19:19:57
== END 2020-01-20 04:56 | disposition home or self-care (01) ==
LOC: ER 22:14
DX: R07.9 Chest pain, unspecified (principal); R42 Dizziness and giddiness; R05 Cough; R06.02 Shortness of breath; F17.200 Nicotine dependence, unspecified, uncomplicated; E78.00 Pure hypercholesterolemia, unspecified; I10 Essential (primary) hypertension; J44.9 Chronic obstructive pulmonary disease, unspecified; Z90.49 Acquired absence of other specified parts of digestive tract; Z96.653 Presence of artificial knee joint, bilateral
CPT/HCPCS: 93005 ×2; 99285; 96361; 96374; 96375; 36415; 83735; 85025; 80053; 84484; 85379; 83880; 71045; 93010 ×2; A9270 ×4; J3010; J7030; J1100

== ENCOUNTER 2020-01-22 00:43 | Observation (INO) | payer MEDICARE ==
[2020-01-22 06:51] LABS: ABSOLUTE EOSINOPHILS # (AUTO) 0.1 10^3/uL (0.0-0.6); ABSOLUTE LYMPHOCYTES (AUTO) 5.5 10^3/uL (0.5-4.7); ABSOLUTE MONOCYTES (AUTO) 0.8 10^3/uL (0.1-1.4); ABSOLUTE NEUT (AUTO) 8.5 10^3/uL (1.7-8.2); BASOPHILS % (AUTO) 0.3 % (0-2); EOSINOPHILS % (AUTO) 0.5 % (0-6); HEMATOCRIT 42.4 % (36.0-47.0); HEMOGLOBIN 14.5 g/dL (12.0-15.5); LYMPHOCYTES % (AUTO) 36.8 % (13-45); MEAN CORPUSCULAR HEMOGLOBIN 30.3 pg (27.0-33.4); MEAN CORPUSCULAR HGB CONC 34.1 g/dL (32.0-36.0); MEAN CORPUSCULAR VOLUME 89 fl (80-97); MONOCYTES % (AUTO) 5.3 % (3-13); PLATELET COUNT 274 10^3/uL (150-450); RED BLOOD COUNT 4.78 10^6/uL (3.72-5.28); RED CELL DISTRIBUTION WIDTH 13.7 % (11.5-14.0); SEGMENTED NEUTROPHILS % (AUTO) 57.1 % (42-78); TOTAL CELLS COUNTED % (AUTO) 100 %; WHITE BLOOD COUNT 14.8 10^3/uL (4.0-10.5)
[2020-01-22 06:58] LABS: APPEARANCE,URINE CLEAR; BILIRUBIN,URINE NEGATIVE (NEGATIVE); COLOR,URINE YELLOW; GLUCOSE, URINE NEGATIVE (NEGATIVE); KETONES,URINE NEGATIVE (NEGATIVE); LEUKOCYTE ESTERASE,URINE NEGATIVE (NEGATIVE); NITRITE,URINE NEGATIVE (NEGATIVE); PROTEIN,URINE NEGATIVE (NEGATIVE); URINE SPECIFIC GRAVITY 1.019; UROBILINOGEN,URINE NEGATIVE mg/dL (<2.0)
--- NOTE | 2020-01-22 06:59 | RADIOLOGY REPORT (SQ) ---
EXAM DESCRIPTION: XR CHEST 1 VIEW COMPLETED DATE/TME: 01/22/2020 06:13 CLINICAL HISTORY: SOB COMPARISON: 01/19/2020 FINDINGS: Single frontal view of the chest. Tubes and lines: Leads overlie the chest. Cardiomediastinal silhouette: Stable Lungs: Interval increase in bibasilar opacities. No pneumothorax or large effusion. Bones: Stable. Upper abdomen: Stable. IMPRESSION: 1. Interval increase in bibasilar opacities concerning for pneumonia.
[2020-01-22 07:12] LABS: ALBUMIN 4.4 g/dL (3.5-5.0); ALKALINE PHOSPHATASE 107 U/L (38-126); ANION GAP 7 (5-19); ASPARTATE AMINO TRANSFERASE 17 U/L (14-36); BILIRUBIN,TOTAL 0.4 mg/dL (0.2-1.3); BLOOD UREA NITROGEN 22 mg/dL (7-20); CALCIUM 9.6 mg/dL (8.4-10.2); CARBON DIOXIDE 26 mmol/L (22-30); CHLORIDE 104 mmol/L (98-107); GLUCOSE 81 mg/dL (75-110); POTASSIUM 3.9 mmol/L (3.6-5.0); TOTAL PROTEIN 6.9 g/dL (6.3-8.2)
[2020-01-22] MEDS ORDERED: ONDANSETRON HCL INJ/PF 4 MG/2 ML SDV IV ONE (07:25)
[2020-01-22] MEDS ORDERED: HYDROMORPHONE HCL INJ/PF 2 MG/ML AMPULE IV ONE (07:25)
[2020-01-22] MEDS ORDERED: FUROSEMIDE INJ/PF 40 MG/4 ML SDV IV ONE (07:31)
[2020-01-22] MEDS ORDERED: PROMETHAZINE HCL INJ 25 MG/1 ML VIAL IM ONE (11:17)
[2020-01-22] MEDS ORDERED: KETOROLAC TROMETHAMINE INJ/PF 30 MG/1 ML SDV IV ONE (11:18)
[2020-01-22] MEDS ORDERED: ACETAMINOPHEN 325 MG TABLET PO PRN (13:44)
[2020-01-22] MEDS ORDERED: TEMAZEPAM 15 MG CAPSULE PO PRN (13:44)
[2020-01-22] MEDS ORDERED: IPRATROPIUM/ALBUTEROL 0.5-2.5 MG/3 ML AMPUL NEB PRN (13:44)
[2020-01-22] MEDS: CEFTRIAXONE 1 GM/D5W RTU 1 GM/50 ML RTUPB IV SCH (14:42)
[2020-01-22] MEDS: HEPARIN SOD (PORCINE) 5,000 UNIT/ML 1 ML VIAL SUBCUT SCH ×2 (14:43→21:55)
[2020-01-22] MEDS: METHYLPREDNISOLONE INJ 40 MG/1 ML SDV IV SCH ×2 (14:43→21:54)
[2020-01-22] MEDS: AZITHROMYCIN 500 MG in DEXTROSE 5%-WATER 250 ML IV SCH (16:28)
[2020-01-22] MEDS ORDERED: TRAMADOL HCL 50 MG TABLET PO PRN (16:35)
[2020-01-22] MEDS ORDERED: METHOCARBAMOL 750 MG TABLET PO PRN (16:35)
--- NOTE | 2020-01-22 17:35 | PDOC H&P ---
History of Present Illness Admission Date/PCP: 01/22/20 12:58 SADIE FARR MD History of Present Illness: JEET FIGUEROA is a 54 year old female Past medical history of obesity, tobacco abuse, hypertension, COPD, depression, bipolar, who has been presented to ED several times recently complaining of shortness of breath, pleuritic chest pain upon walking, chills, diarrhea, nausea, recently presented to ED discharged on p.o. steroids and doxycycline, pain that she finished her medication however her shortness of breath and chest pain did not improve, was tested for COVID-19 [email or web address] 6 days ago and as per patient it was reported negative. She denies any headache, vision changes, weight changes, orthopnea, paroxysmal nocturnal dyspnea, or any urinary symptoms. In ED she was noted to be tachypneic, with leukocytosis and chest x-ray positive for bibasilar infiltrates. Past Medical History Cardiac Medical History: Reports: Hyperlipidema, Hypertension Pulmonary Medical History: Reports: Asthma, Chronic Obstructive Pulmonary Disease (COPD) GI Medical History: Reports: Gastroesophageal Reflux Disease Musculoskeltal Medical History: Reports: Arthritis, Fibromyalgia Psychiatric Medical History: Reports: Depression Past Surgical History Past Surgical History: Reports: Section, Cholecystectomy, Hysterectomy, Orthopedic Surgery - left and right knee replacement, spinal fusion lower Social History Smoking Status: Current Every Day Smoker Frequency of Alcohol Use: None Hx Recreational Drug Use: No Hx Prescription Drug Abuse: No Family History Family History: Reviewed & Not Pertinent Parental Family History Reviewed: Yes Children Family History Reviewed: Yes Sibling(s) Family History Reviewed.: Yes Medication/Allergy Home Medications: Quetiapine Fumarate 150 mg PO QHS 08/29/15 Doxycycline Hyclate [Vibramycin 100 mg Tablet] 100 mg PO BID #10 tablet MDD FILLED 01/15 FOR 5 DAY SUPPLY 01/16/20 Amitriptyline HCl [Elavil 75 mg Tablet] 75 mg PO HSP PRN 01/22/20 Amlodipine Besylate [Norvasc 10 mg Tablet] 10 mg PO DAILY 01/22/20 Benzonatate [Tessalon Perles 100 mg Capsule] 100 mg PO Q8HP PRN MDD FILLED 01/15 FOR 5 DAY SUPPLY 01/22/20 Budesonide/Formoterol Fumarate [Symbicort Hfa 160-4.5 Mcg Inhaler 6 gm] 2 puff IH Q12 01/22/20 Buspirone HCl [Buspar 10 mg Tablet] 20 mg PO Q8 01/22/20 Clonazepam 0.5 mg PO DAILYP PRN 01/22/20 Duloxetine HCl 30 mg PO QHS 01/22/20 Duloxetine HCl 60 mg PO DAILY 01/22/20 Hydroxyzine Pamoate [Vistaril 50 mg Capsule] 50 mg PO Q12HP PRN 01/22/20 Lamotrigine 150 mg PO QHS 01/22/20 Lamotrigine 200 mg PO DAILY 01/22/20 Linaclotide [Linzess 145 Mcg Capsule] 145 mcg PO Q6AM 01/22/20 Methocarbamol [Robaxin 750 mg Tablet] 750 mg PO QIDP PRN 01/22/20 Metoprolol Succinate [Toprol Xl 25 mg Tab.sr] 25 mg PO DAILY 01/22/20 Olmesartan Medoxomil 40 mg PO DAILY 01/22/20 Pantoprazole Sodium [Protonix [address] Tablet] 40 mg PO QAM 01/22/20 Prednisone [Deltasone 20 mg Tablet] 40 mg PO DAILY MDD FILLED 01/15 FOR 5 DAY SUPPLY 01/22/20 Rosuvastatin Calcium 5 mg PO QHS 01/22/20 Tramadol HCl [Ultram 50 mg Tablet] 50 mg PO Q8HP PRN 01/22/20 Allergies/Adverse Reactions: Iodinated Contrast Media [IV Dye, Iodine Containing] Allergy (Verified 01/22/20 07:53) latex [Latex] Allergy (Verified 01/22/20 07:53) morphine Allergy (Verified 01/22/20 07:53) Sulfa (Sulfonamide Antibiotics) Allergy (Verified 01/22/20 07:53) Review of Systems Review of Systems: as per hpi Physical Exam Vital Signs: Temp Pulse Resp BP Pulse Ox 98.3 F 84 12 116/73 94 01/22/20 15:36 01/22/20 15:36 01/22/20 15:36 01/22/20 15:36 01/22/20 15:36 Intake & Output 01/21/20 01/22/20 01/23/20 06:59 06:59 06:59 Intake Total 50 Balance 50 Weight 121.563 kg 121.6 kg General appearance: PRESENT: no acute distress, obese, well-developed, well- nourished Head exam: PRESENT: atraumatic, normocephalic Respiratory exam: PRESENT: clear to auscultation deonna. ABSENT: rales, rhonchi, wheezes Cardiovascular exam: PRESENT: RRR. ABSENT: diastolic murmur, rubs, systolic murmur GI/Abdominal exam: PRESENT: normal bowel sounds, soft. ABSENT: distended, guarding, mass, organolmegaly, rebound, tenderness Neurological exam: PRESENT: alert, awake, oriented to person, oriented to place, oriented to time, oriented to situation, CN II-XII grossly intact. ABSENT: motor sensory deficit Results Laboratory Results: 01/22/20 06:25 01/22/20 06:25 01/22/20 01/22/20 01/22/20 03:05 06:25 06:25 WBC 14.8 H RBC 4.78 Hgb 14.5 Hct 42.4 MCV 89 MCH 30.3 MCHC 34.1 RDW 13.7 Plt Count 274 Seg Neutrophils % 57.1 Sodium 136.9 L Potassium 3.9 Chloride 104 Carbon Dioxide 26 Anion Gap 7 BUN 22 H Creatinine 0.98 Est GFR ( Amer) > 60 Glucose 81 Calcium 9.6 Total Bilirubin 0.4 AST 17 Alkaline Phosphatase 107 Total Protein 6.9 Albumin 4.4 Urine Color YELLOW Urine Appearance CLEAR Urine pH 6.0 Ur Specific [place] 1.019 Urine Protein NEGATIVE Urine Glucose (UA) NEGATIVE Urine Ketones NEGATIVE Urine Blood NEGATIVE Urine Nitrite NEGATIVE Ur Leukocyte Esterase NEGATIVE Urine WBC (Auto) 1 Urine RBC (Auto) 0 01/22/20 01/22/20 06:25 06:25 Troponin I < 0.012 NT-Pro-B Natriuret Pep 183 H Impressions: Chest X-Ray 01/22/20 06:13 IMPRESSION: 1. Interval increase in bibasilar opacities concerning for pneumonia. Assessment and Plan - Diagnosis (1) Pneumonia Qualifiers: Pneumonia type: due to Pneumococcus Laterality: bilateral Is this a current diagnosis for this admission?: Yes Plan: Likely community-acquired caused by gram-positive's including a Streptococcus pneumonia. As per patient COVID-19 done 6 days ago at [facility] was reported negative. Patient has finished a complete course of p.o. doxycycline only as outpatient. Admit to floor, empiric broad-spectrum IV antibiotics, sputum culture, blood culture, DuoNebs, supplemental oxygen, IV steroids. (2) COPD (chronic obstructive pulmonary disease) Is this a current diagnosis for this admission?: Yes Plan: History of non-oxygen dependent COPD. Current smoker. Does not seem to be acutely exacerbated. Plan as per 1. (3) Tobacco abuse Is this a current diagnosis for this admission?: Yes Plan: Counseled on quitting. NicoDerm patch will be provided. (4) Morbid obesity with BMI of 45.0-49.9, adult Is this a current diagnosis for this admission?: Yes Plan: BMI 47.5. Diet and lifestyle modification recommended. Will obtain TSH. (5) Depression Is this a current diagnosis for this admission?: Yes Plan: History of chronic depression. Denies any homicidal or suicidal ideation. Resume home meds. Outpatient PCP follow-up. (6) Bipolar 1 disorder Is this a current diagnosis for this admission?: Yes Plan: Resume home meds. Outpatient PCP follow-up. (7) Hypertension Is this a current diagnosis for this admission?: Yes Plan: Normotensive. Euvolemic. Resume home meds. PRN IV hydralazine and IV metoprolol. Adjust meds as needed. Outpatient PCP follow-up. (8) Hyperlipidemia Is this a current diagnosis for this admission?: Yes Plan: Resume statins. Diet and lifestyle modification recommended. (9) Chest pain Qualifiers: Chest pain type: chest pain on breathing Qualified Code(s): R07.1 - Chest pain on breathing; R07.81 - Pleurodynia Is this a current diagnosis for this admission?: Yes Plan: Noncardiac. Pleuritic. Likely due to underlying pneumonia. Troponins negative. EKG normal sinus rhythm. Supportive measures. - Time Time Spent with patient: 35 or more minutes Smoking Cessation Education: 3 to 10 minutes Medications reviewed and adjusted accordingly: Yes Anticipated Discharge Disposition: Home, Self Care Anticipated Discharge: within 36 hours
[2020-01-22] MEDS: HYDROMORPHONE HCL INJ/PF 2 MG/ML AMPULE IV PRN ×2 (17:55→21:56)
[2020-01-22] MEDS: ONDANSETRON HCL INJ/PF 4 MG/2 ML SDV IV PRN (17:55)
[2020-01-22] MEDS: DOCUSATE SODIUM 100 MG CAPSULE PO SCH (17:57)
--- NOTE | 2020-01-22 19:20 | EKG REPORT ---
SEVERITY:- ABNORMAL ECG - SINUS RHYTHM PAYTON, CONSIDER BIATRIAL ABNORMALITIES PROBABLE INFERIOR INFARCT, OLD : Confirmed by: Rissa Loera 22-Jan-2020 19:19:52
[2020-01-22] MEDS: PROMETHAZINE HCL INJ 25 MG/1 ML VIAL IV PRN (20:17)
[2020-01-22] MEDS: OXYCODONE-ACETAMINOPHEN 5-325 MG TABLET PO PRN (21:22)
[2020-01-22] MEDS: FAMOTIDINE 20 MG TABLET PO SCH (21:55)
[2020-01-22] MEDS: LAMOTRIGINE 100 MG TABLET PO SCH (21:55)
[2020-01-22] MEDS: DULOXETINE HCL 30 MG CAPSULE.DR PO SCH (21:55)
[2020-01-22] MEDS: BUSPIRONE HCL 10 MG TABLET PO SCH (21:55)
[2020-01-22] MEDS: QUETIAPINE FUMARATE 100 MG TABLET PO SCH (21:58)
[2020-01-22] MEDS ORDERED: CLONAZEPAM 1 MG TABLET PO PRN (23:30)
[2020-01-23] MEDS: HEPARIN SOD (PORCINE) 5,000 UNIT/ML 1 ML VIAL SUBCUT SCH ×3 (05:56→22:37)
[2020-01-23] MEDS: BUSPIRONE HCL 10 MG TABLET PO SCH ×3 (05:56→22:40)
[2020-01-23] MEDS: METHYLPREDNISOLONE INJ 40 MG/1 ML SDV IV SCH ×3 (05:56→22:37)
[2020-01-23] MEDS: OXYCODONE-ACETAMINOPHEN 5-325 MG TABLET PO PRN ×4 (05:56→19:33)
[2020-01-23] MEDS ORDERED: (PENDING PHARMACY ID) (Linaclotide 145 MCG) PO SCH (06:00)
[2020-01-23 06:32] LABS: ABSOLUTE MONOCYTES (AUTO) 0.1 10^3/uL (0.1-1.4); ABSOLUTE NEUT (AUTO) 10.6 10^3/uL (1.7-8.2); BASOPHILS % (AUTO) 0.2 % (0-2); HEMATOCRIT 43.7 % (36.0-47.0); HEMOGLOBIN 14.8 g/dL (12.0-15.5); LYMPHOCYTES % (AUTO) 8.6 % (13-45); MEAN CORPUSCULAR HEMOGLOBIN 30.4 pg (27.0-33.4); MEAN CORPUSCULAR HGB CONC 33.9 g/dL (32.0-36.0); MEAN CORPUSCULAR VOLUME 90 fl (80-97); MONOCYTES % (AUTO) 1.2 % (3-13); PLATELET COUNT 275 10^3/uL (150-450); RED BLOOD COUNT 4.87 10^6/uL (3.72-5.28); RED CELL DISTRIBUTION WIDTH 13.6 % (11.5-14.0); TOTAL CELLS COUNTED % (AUTO) 100 %; WHITE BLOOD COUNT 11.8 10^3/uL (4.0-10.5)
[2020-01-23 06:58] LABS: ALBUMIN 4.3 g/dL (3.5-5.0); ALKALINE PHOSPHATASE 118 U/L (38-126); ANION GAP 10 (5-19); ASPARTATE AMINO TRANSFERASE 21 U/L (14-36); BILIRUBIN,TOTAL 0.4 mg/dL (0.2-1.3); BLOOD UREA NITROGEN 26 mg/dL (7-20); CALCIUM 9.5 mg/dL (8.4-10.2); CARBON DIOXIDE 24 mmol/L (22-30); CHLORIDE 101 mmol/L (98-107); GLUCOSE 164 mg/dL (75-110); POTASSIUM 4.8 mmol/L (3.6-5.0); TOTAL PROTEIN 6.9 g/dL (6.3-8.2)
[2020-01-23] MEDS: ONDANSETRON HCL INJ/PF 4 MG/2 ML SDV IV PRN ×3 (07:50→16:33)
[2020-01-23] MEDS: PROMETHAZINE HCL INJ 25 MG/1 ML VIAL IV PRN ×2 (08:36→17:14)
[2020-01-23] MEDS: FLUTICASONE/VILANTEROL 200-25 MCG/DOSE IH SCH (09:02)
[2020-01-23] MEDS: DOCUSATE SODIUM 100 MG CAPSULE PO SCH ×2 (09:02→17:14)
[2020-01-23] MEDS: DULOXETINE HCL 30 MG CAPSULE.DR PO SCH ×2 (09:02→22:37)
[2020-01-23] MEDS: FAMOTIDINE 20 MG TABLET PO SCH ×2 (09:02→22:38)
[2020-01-23] MEDS: METOPROLOL SUCCINATE 25 MG TAB.SR.24H PO SCH (09:02)
[2020-01-23] MEDS: AMLODIPINE BESYLATE 10 MG TABLET PO SCH (09:02)
[2020-01-23] MEDS: CEFTRIAXONE 1 GM/D5W RTU 1 GM/50 ML RTUPB IV SCH (09:03)
[2020-01-23] MEDS: LAMOTRIGINE 100 MG TABLET PO SCH ×2 (09:03→22:38)
[2020-01-23] MEDS: AZITHROMYCIN 500 MG in DEXTROSE 5%-WATER 250 ML IV SCH (10:14)
--- NOTE | 2020-01-23 11:34 | ER Document Report ---
Entered by KAILYN REHMAN SCRIBE 01/22/20 0718 Acting as scribe for:SHIN SINGER MD ED Respiratory Problem - General Chief Complaint: Shortness Of Breath Stated Complaint: SHORTNESS OF BREATH Time Seen by Provider: 01/22/20 06:22 Primary Care Provider: SADIE FARR MD [Primary Care Provider] - Follow up as needed Information source: Patient Notes: This 54 year old female patient presents to the emergency department today with complaints of shortness of breath. Patient states she has shortness of breath and chest pain when walking. Patient reports a history of asthma, COPD, and smokes daily. Patient states she visited the ED x2 this month for chest pain, wi th her most recent visit being x2 days ago. Patient states she was tested recently for covid at [facility] and the results came back as negative x6 days ago. TRAVEL OUTSIDE OF THE [place] IN LAST 30 DAYS: No - Related Data Allergies/Adverse Reactions: Iodinated Contrast Media [IV Dye, Iodine Containing] Allergy (Verified 01/22/20 07:53) latex [Latex] Allergy (Verified 01/22/20 07:53) morphine Allergy (Verified 01/22/20 07:53) Sulfa (Sulfonamide Antibiotics) Allergy (Verified 01/22/20 07:53) Home Medications: Amlodipine, atorvastatin, metoprolol, protonix, cymbalta, lamotrigine, amnitryptiline, klonopin, methacarbamol, tramadol, Past Medical History - General Information source: Patient - Social History Smoking Status: Current Every Day Smoker Cigarette use (# per day): Yes Frequency of alcohol use: None Drug Abuse: None Family History: Reviewed & Not Pertinent Patient has homicidal ideation: No - Past Medical History Cardiac Medical History: Reports: Hx Hypercholesterolemia, Hx Hypertension Pulmonary Medical History: Reports: Hx Asthma, Hx COPD GI Medical History: Reports: Hx Gastroesophageal Reflux Disease Musculoskeletal Medical History: Reports Hx Arthritis, Reports Hx Fibromyalgia Psychiatric Medical History: Reports: Hx Anxiety, Hx Depression Traumatic Medical History: Reports: Hx Fractures Past Surgical History: Reports: Hx Section, Hx Cholecystectomy, Hx Hysterectomy, Hx Orthopedic Surgery - left and right knee replacement, spinal fusion lower - Immunizations Hx Diphtheria, Pertussis, Tetanus Vaccination: No Hx Pneumococcal Vaccination: 06/29/09 Review of Systems - Review of Systems Constitutional: No symptoms reported EENT: No symptoms reported Cardiovascular: See HPI, Chest pain Respiratory: See HPI, Short of breath Gastrointestinal: No symptoms reported Genitourinary: No symptoms reported Female Genitourinary: No symptoms reported Musculoskeletal: No symptoms reported Skin: No symptoms reported Hematologic/Lymphatic: No symptoms reported Neurological/Psychological: No symptoms reported -: Yes All other systems reviewed and negative Physical Exam - Vital signs Vitals: Temp Pulse Resp BP Pulse Ox 98.0 F 89 22 H 114/62 96 01/22/20 01:44 01/22/20 01:44 01/22/20 01:44 01/22/20 01:44 01/22/20 01:44 - General General appearance: Appears well, Alert - HEENT Head: Normocephalic, Atraumatic Eyes: Normal Pupils: PERRL - Respiratory Notes: Breath sounds clear to auscultation bilaterally. No wheezing. Reproducible chest wall tenderness of the anterior chest. Oxygen saturation is 96-98% on room air. No respiratory distress. - Cardiovascular Rhythm: Regular Heart sounds: Normal auscultation Murmur: No - Abdominal Inspection: Obese Distension: No distension Bowel sounds: Normal Tenderness: Nontender - Extremities General upper extremity: Normal inspection. No: Edema General lower extremity: Normal inspection. No: Edema - Neurological Neuro grossly intact: Yes Cognition: Normal Orientation: AAOx4 Speech: Normal - Psychological Associated symptoms: Normal affect, Normal mood - Skin Skin Temperature: Warm Skin Moisture: Dry Skin Color: Normal Course - Vital Signs Vital signs: Temp Pulse Resp BP Pulse Ox 98.1 F 77 25 H 127/72 H 92 01/22/20 05:56 01/22/20 05:32 01/22/20 12:02 01/22/20 12:02 01/22/20 12:02 - Laboratory Result Diagrams: 01/22/20 06:25 01/22/20 06:25 Laboratory results interpreted by me: 01/22/20 01/22/20 01/22/20 06:25 06:25 06:25 WBC 14.8 H Absolute Neuts (auto) 8.5 H Absolute Lymphs (auto) 5.5 H Sodium 136.9 L BUN 22 H Est GFR (MDRD) Non-Af 59 L NT-Pro-B Natriuret Pep 183 H Discharge - Discharge Clinical Impression: COPD exacerbation, Chest pain, Chest wall pain, Cough, Shortness of breath, Lung infiltrate Condition: Good Disposition: ADMITTED INPATIENT Admitting Provider: Namita (Hospitalist) Unit Admitted: Telemetry Referrals: SADIE FARR MD [Primary Care Provider] - Follow up as needed I personally performed the services described in the documentation, reviewed and edited the documentation which was dictated to the scribe in my presence, and it accurately records my words and actions.
[2020-01-23] MEDS: HYDROMORPHONE HCL INJ/PF 2 MG/ML AMPULE IV PRN (12:30)
--- NOTE | 2020-01-23 13:12 | PDOC PROGRESS REPORT ---
Subjective Progress Note for:: 01/23/20 Subjective:: JEET FIGUEROA is a 54 year old female Past medical history of obesity, tobacco abuse, hypertension, COPD, depression, bipolar, who has been presented to ED several times recently complaining of shortness of breath, pleuritic chest pain upon walking, chills, diarrhea, nausea, recently presented to ED discharged on p.o. steroids and doxycycline, pain that she finished her medication however her shortness of breath and chest pain did not improve, was tested for COVID-19 [facility] 6 days ago and as per patient it was reported negative. She denies any headache, vision changes, weight changes, orthopnea, paroxysmal nocturnal dyspnea, or any urinary symptoms. In ED she was noted to be tachypneic, with leukocytosis and chest x-ray positive for bibasilar infiltrates. 01/23/2020. No acute events overnight. Still complaining of right supportive chest pain, denies any fever, chills, nausea, vomiting, diarrhea, constipation or any urinary symptoms. Patient had recent right shoulder surgery and has been receiving physical therapy and her chest pain is most likely musculoskeletal. Has tenderness palpation over the right chest area. Reason For Visit: PNEUMONIA Physical Exam Vital Signs: Temp Pulse Resp BP Pulse Ox 98.1 F 101 H 14 142/77 H 97 01/23/20 11:39 01/23/20 11:39 01/23/20 11:39 01/23/20 11:39 01/23/20 11:39 Intake & Output 01/22/20 01/23/20 01/24/20 06:59 06:59 06:59 Intake Total 1040 50 Balance 1040 50 Weight 121.563 kg 122.2 kg General appearance: PRESENT: no acute distress, morbidly obese, well-developed, well-nourished Head exam: PRESENT: atraumatic, normocephalic Respiratory exam: PRESENT: clear to auscultation deonna. ABSENT: rales, rhonchi, wheezes Cardiovascular exam: PRESENT: RRR, other - Right-sided anterior chest tender to palpation.. ABSENT: diastolic murmur, rubs, systolic murmur GI/Abdominal exam: PRESENT: normal bowel sounds, soft. ABSENT: distended, g uarding, mass, organolmegaly, rebound, tenderness Extremities exam: PRESENT: full ROM. ABSENT: calf tenderness, clubbing, pedal edema Neurological exam: PRESENT: alert, awake, oriented to person, oriented to place, oriented to time, oriented to situation, CN II-XII grossly intact. ABSENT: motor sensory deficit Results Laboratory Results: 01/23/20 05:06 01/23/20 05:06 01/23/20 01/23/20 05:06 05:06 WBC 11.8 H RBC 4.87 Hgb 14.8 Hct 43.7 MCV 90 MCH 30.4 MCHC 33.9 RDW 13.6 Plt Count 275 Seg Neutrophils % 90.0 H Sodium 134.7 L Potassium 4.8 Chloride 101 Carbon Dioxide 24 Anion Gap 10 BUN 26 H Creatinine 0.90 Est GFR ( Amer) > 60 Glucose 164 H Calcium 9.5 Magnesium 2.5 H Total Bilirubin 0.4 AST 21 Alkaline Phosphatase 118 Total Protein 6.9 Albumin 4.3 01/22/20 01/22/20 06:25 06:25 Troponin I < 0.012 NT-Pro-B Natriuret Pep 183 H Impressions: Chest X-Ray 01/22/20 06:13 IMPRESSION: 1. Interval increase in bibasilar opacities concerning for pneumonia. Assessment and Plan - Diagnosis (1) Pneumonia Qualifiers: Pneumonia type: due to Pneumococcus Laterality: bilateral Is this a current diagnosis for this admission?: Yes Plan: Likely community-acquired caused by gram-positive's including a Streptococcus pneumonia. As per patient COVID-19 done 6 days ago at [facility] was reported negative. Patient has finished a complete course of p.o. doxycycline only as outpatient. Day 2 IV no antibiotics. Day 2 IV azithromycin. Day 2 IV ceftriaxone. Continue empiric broad-spectrum IV antibiotics, sputum culture, blood culture, DuoNebs, supplemental oxygen, IV steroids. (2) COPD (chronic obstructive pulmonary disease) Is this a current diagnosis for this admission?: Yes Plan: History of non-oxygen dependent COPD. Current smoker. Does not seem to be acutely exacerbated. Plan as per 1. (3) Tobacco abuse Is this a current diagnosis for this admission?: Yes Plan: Counseled on quitting. NicoDerm patch will be provided. (4) Morbid obesity with BMI of 45.0-49.9, adult Is this a current diagnosis for this admission?: Yes Plan: BMI 47.5. Diet and lifestyle modification recommended. Will obtain TSH. (5) Depression Is this a current diagnosis for this admission?: Yes Plan: History of chronic depression. Denies any homicidal or suicidal ideation. Resume home meds. Outpatient PCP follow-up. (6) Bipolar 1 disorder Is this a current diagnosis for this admission?: Yes Plan: Resume home meds. Outpatient PCP follow-up. (7) Hypertension Is this a current diagnosis for this admission?: Yes Plan: Normotensive. Euvolemic. Resume home meds. PRN IV hydralazine and IV metoprolol. Adjust meds as needed. Outpatient PCP follow-up. (8) Hyperlipidemia Is this a current diagnosis for this admission?: Yes Plan: Resume statins. Diet and lifestyle modification recommended. (9) Chest pain Qualifiers: Chest pain type: other chest pain Qualified Code(s): R07.89 - Other chest pain; R07.8 - Other chest pain Is this a current diagnosis for this admission?: Yes Plan: Noncardiac. Musculoskeletal. Tenderness to palpation right anterior chest. Chest pain is worsened by right upper extremity movement. Patient had right shoulder surgery recently and has been receiving physical therapy as outpatient. Troponins negative. EKG normal sinus rhythm. Supportive measures. Patient allergic to morphine, keeps asking for Dilaudid. Does not want to take tramadol stating she has CKD. However on chart review patient has been coming to [facility] since 2012 and her kidney function has been within normal limits. We will start on lidocaine patch over the right chest. PRN Toradol and Dilaudid. Patient encouraged to continue her physical therapy for her right shoulder surgery. - Time Time Spent with patient: 25-34 minutes Smoking Cessation Education: 3 to 10 minutes Medications reviewed and adjusted accordingly: Yes Anticipated Discharge Disposition: Home, Self Care Anticipated Discharge: within 24 hours
[2020-01-23] MEDS ORDERED: RINGERS SOLUTION,LACTATED 1,000 ML IV ONE (13:30)
[2020-01-23] MEDS: LIDOCAINE 5% (700 MG) TRANSDERMAL ADH..PATCH TP SCH (14:11)
[2020-01-23] MEDS: KETOROLAC TROMETHAMINE INJ/PF 30 MG/1 ML SDV IV PRN (16:32)
[2020-01-23] MEDS: QUETIAPINE FUMARATE 100 MG TABLET PO SCH (22:36)
[2020-01-24] MEDS: BUSPIRONE HCL 10 MG TABLET PO SCH ×2 (06:00→13:21)
[2020-01-24] MEDS: KETOROLAC TROMETHAMINE INJ/PF 30 MG/1 ML SDV IV PRN (06:01)
[2020-01-24] MEDS: METHYLPREDNISOLONE INJ 40 MG/1 ML SDV IV SCH ×2 (06:01→13:21)
[2020-01-24] MEDS: HEPARIN SOD (PORCINE) 5,000 UNIT/ML 1 ML VIAL SUBCUT SCH ×2 (06:02→13:21)
[2020-01-24 06:42] LABS: HEMATOCRIT 41.2 % (36.0-47.0); HEMOGLOBIN 14.1 g/dL (12.0-15.5); MEAN CORPUSCULAR HEMOGLOBIN 30.6 pg (27.0-33.4); MEAN CORPUSCULAR HGB CONC 34.3 g/dL (32.0-36.0); MEAN CORPUSCULAR VOLUME 89 fl (80-97); PLATELET COUNT 266 10^3/uL (150-450); RED BLOOD COUNT 4.62 10^6/uL (3.72-5.28); RED CELL DISTRIBUTION WIDTH 13.5 % (11.5-14.0); WHITE BLOOD COUNT 13.7 10^3/uL (4.0-10.5)
[2020-01-24 07:06] LABS: ANION GAP 6 (5-19); BLOOD UREA NITROGEN 22 mg/dL (7-20); CALCIUM 9.4 mg/dL (8.4-10.2); CARBON DIOXIDE 26 mmol/L (22-30); CHLORIDE 104 mmol/L (98-107); GLUCOSE 147 mg/dL (75-110); POTASSIUM 4.8 mmol/L (3.6-5.0)
[2020-01-24] MEDS: ONDANSETRON HCL INJ/PF 4 MG/2 ML SDV IV PRN (07:48)
[2020-01-24] MEDS: LIDOCAINE 5% (700 MG) TRANSDERMAL ADH..PATCH TP SCH (09:12)
[2020-01-24] MEDS: CEFTRIAXONE 1 GM/D5W RTU 1 GM/50 ML RTUPB IV SCH (09:13)
[2020-01-24] MEDS: FAMOTIDINE 20 MG TABLET PO SCH (09:14)
[2020-01-24] MEDS: METOPROLOL SUCCINATE 25 MG TAB.SR.24H PO SCH (09:14)
[2020-01-24] MEDS: OXYCODONE-ACETAMINOPHEN 5-325 MG TABLET PO PRN (09:14)
[2020-01-24] MEDS: LAMOTRIGINE 100 MG TABLET PO SCH (09:14)
[2020-01-24] MEDS: DULOXETINE HCL 30 MG CAPSULE.DR PO SCH (09:15)
[2020-01-24] MEDS: AMLODIPINE BESYLATE 10 MG TABLET PO SCH (09:15)
[2020-01-24] MEDS: FLUTICASONE/VILANTEROL 200-25 MCG/DOSE IH SCH (09:15)
[2020-01-24] MEDS: DOCUSATE SODIUM 100 MG CAPSULE PO SCH (09:15)
[2020-01-24] MEDS: AZITHROMYCIN 500 MG in DEXTROSE 5%-WATER 250 ML IV SCH (11:12)
[2020-01-24] MEDS ORDERED: DIPHENHYDRAMINE HCL 25 MG CAPSULE PO PRN (13:44)
--- NOTE | 2020-01-24 14:05 | PDOC DISCHARGE SUMMARY ---
Impression - Admit/DC Date/PCP Admission Date/Primary Care Provider: 01/22/20 12:58 SADIE FARR MD Discharge Date: 01/24/20 - Additional Information Resuscitation Status: Full Code Discharge Diet: Cardiac Discharge Activity: Activity As Tolerated, Balance Activity w/Rest Referrals: SADIE FARR MD [Primary Care Provider] - Follow up as needed Prescriptions: Amoxicillin/Potassium Clav [Augmentin 875-125 Tablet] 1 tab PO BID 3 Days #6 tab Prednisone [Deltasone 20 mg Tablet] 40 mg PO DAILY 3 Days #6 tablet Lidocaine [Lidoderm 5% (700 mg) Transdermal Patch] 1 patch TP DAILY #30 adh..patch Budesonide/Formoterol Fumarate [Symbicort HFA 160-4.5 mcg Inhaler 6 gm] 2 puff IH Q12 #1 inhaler Azithromycin [Zithromax Tri-Twin] 500 mg PO DAILY 3 Days #3 pkg Home Medications: Quetiapine Fumarate 150 mg PO QHS 08/29/15 Doxycycline Hyclate [Vibramycin 100 mg Tablet] 100 mg PO BID #10 tablet MDD FILL ED 01/15 FOR 5 DAY SUPPLY 01/16/20 Amitriptyline HCl [Elavil 75 mg Tablet] 75 mg PO HSP PRN 01/22/20 Amlodipine Besylate [Norvasc 10 mg Tablet] 10 mg PO DAILY 01/22/20 Benzonatate [Tessalon Perles 100 mg Capsule] 100 mg PO Q8HP PRN MDD FILLED 01/15 FOR 5 DAY SUPPLY 01/22/20 Buspirone HCl [Buspar 10 mg Tablet] 20 mg PO Q8 01/22/20 Clonazepam 0.5 mg PO DAILYP PRN 01/22/20 Duloxetine HCl 30 mg PO QHS 01/22/20 Duloxetine HCl 60 mg PO DAILY 01/22/20 Hydroxyzine Pamoate [Vistaril 50 mg Capsule] 50 mg PO Q12HP PRN 01/22/20 Lamotrigine 150 mg PO QHS 01/22/20 Lamotrigine 200 mg PO DAILY 01/22/20 Linaclotide [Linzess 145 Mcg Capsule] 145 mcg PO Q6AM 01/22/20 Methocarbamol [Robaxin 750 mg Tablet] 750 mg PO QIDP PRN 01/22/20 Metoprolol Succinate [Toprol Xl 25 mg Tab.sr] 25 mg PO DAILY 01/22/20 Olmesartan Medoxomil 40 mg PO DAILY 01/22/20 Pantoprazole Sodium [Protonix [address] Tablet] 40 mg PO QAM 01/22/20 Rosuvastatin Calcium 5 mg PO QHS 01/22/20 Tramadol HCl [Ultram 50 mg Tablet] 50 mg PO Q8HP PRN 01/22/20 Amoxicillin/Potassium Clav [Augmentin 875-125 Tablet] 1 tab PO BID 3 Days #6 tab 01/24/20 Azithromycin [Zithromax Tri-Twin] 500 mg PO DAILY 3 Days #3 pkg 01/24/20 Budesonide/Formoterol Fumarate [Symbicort HFA 160-4.5 mcg Inhaler 6 gm] 2 puff IH Q12 #1 inhaler 01/24/20 Lidocaine [Lidoderm 5% (700 mg) Transdermal Patch] 1 patch TP DAILY #30 adh..patch 01/24/20 Prednisone [Deltasone 20 mg Tablet] 40 mg PO DAILY 3 Days #6 tablet 01/24/20 History of Present Illiness History of Present Illness: Primary physician: "JEET FIGUEROA is a 54 year old female Past medical history of obesity, tobacco abuse, hypertension, COPD, depression, bipolar, who has been presented to ED several times recently complaining of shortness of breath, pleuritic chest pain upon walking, chills, diarrhea, nausea, recently presented to ED discharged on p.o. steroids and doxycycline, pain that she finished her medication however her shortness of breath and chest pain did not improve, was tested for COVID-19 [facility] 6 days ago and as per patient it was reported negative. She denies any headache, vision changes, weight changes, orthopnea, paroxysmal nocturnal dyspnea, or any urinary symptoms. In ED she was noted to be tachypneic, with leukocytosis and chest x-ray positive for bibasilar infiltrates." Hospital Course Hospital Course: Patient admitted for COPD exacerbation and community-acquired pneumonia on the left side. Patient treated with appropriate IV antibiotic therapy and later transitioned to Augmentin/azithromycin to complete total 5-day course at home. She was also on IV steroids and this was transitioned down to prednisone 40 mg daily for 3 additional days at discharge. I refilled the patient's Symbicort as well as she had been out of this for quite some time now. Patient will need to follow-up with her PCP and likely see a neurologist about her longstanding mi graine problems. Patient needs outpatient PFTs repeated as these have not been done in several years she states her breathing is worse than when they were done in the past. Patient is in agreement with the plan and stable for discharge. She was counseled extensively on smoking cessation. Physical Exam Vital Signs: Temp Pulse Resp BP Pulse Ox 98.2 F 92 15 152/75 H 95 01/24/20 12:40 01/24/20 12:40 01/24/20 12:40 01/24/20 12:40 01/24/20 12:40 Intake & Output 01/23/20 01/24/20 01/25/20 06:59 06:59 06:59 Intake Total 1040 2770 250 Balance 1040 2770 250 Weight 122.2 kg 124.8 kg General appearance: PRESENT: no acute distress, well-developed, well-nourished Head exam: PRESENT: atraumatic, normocephalic Eye exam: PRESENT: conjunctiva pink Mouth exam: PRESENT: moist Respiratory exam: PRESENT: clear to auscultation deonna. ABSENT: rales, rhonchi, wheezes Cardiovascular exam: PRESENT: RRR. ABSENT: diastolic murmur, rubs, systolic murmur GI/Abdominal exam: PRESENT: normal bowel sounds, soft. ABSENT: distended, guarding, mass, organolmegaly, rebound, tenderness Neurological exam: PRESENT: alert, awake, oriented to person, oriented to place, oriented to time, oriented to situation Psychiatric exam: PRESENT: appropriate affect, normal mood Skin exam: PRESENT: dry, intact, warm Results Laboratory Results: WBC 13.7 10^3/uL (4.0-10.5) H 01/24/20 05:50 RBC 4.62 10^6/uL (3.72-5.28) 01/24/20 05:50 Hgb 14.1 g/dL (12.0-15.5) 01/24/20 05:50 Hct 41.2 % (36.0-47.0) 01/24/20 05:50 MCV 89 fl (80-97) 01/24/20 05:50 MCH 30.6 pg (27.0-33.4) 01/24/20 05:50 MCHC 34.3 g/dL (32.0-36.0) 01/24/20 05:50 RDW 13.5 % (11.5-14.0) 01/24/20 05:50 Plt Count 266 10^3/uL (150-450) 01/24/20 05:50 Lymph % (Auto) 8.6 % (13-45) L 01/23/20 05:06 [place] % (Auto) 1.2 % (3-13) L 01/23/20 05:06 Eos % (Auto) 0.0 % (0-6) 01/23/20 05:06 Baso % (Auto) 0.2 % (0-2) 01/23/20 05:06 Absolute Neuts (auto) 10.6 10^3/uL (1.7-8.2) H 01/23/20 05:06 Absolute Lymphs (auto) 1.0 10^3/uL (0.5-4.7) 01/23/20 05:06 Absolute Monos (auto) 0.1 10^3/uL (0.1-1.4) 01/23/20 05:06 Absolute Eos (auto) 0.0 10^3/uL (0.0-0.6) 01/23/20 05:06 Absolute Basos (auto) 0.0 10^3/uL (0.0-0.2) 01/23/20 05:06 Seg Neutrophils % 90.0 % (42-78) H 01/23/20 05:06 Sodium 135.6 mmol/L (137-145) L 01/24/20 05:50 Potassium 4.8 mmol/L (3.6-5.0) 01/24/20 05:50 Chloride 104 mmol/L (98-107) 01/24/20 05:50 Carbon Dioxide 26 mmol/L (22-30) 01/24/20 05:50 Anion Gap 6 (5-19) 01/24/20 05:50 BUN 22 mg/dL (7-20) H 01/24/20 05:50 Creatinine 0.75 mg/dL (0.52-1.25) 01/24/20 05:50 Est GFR ( Amer) > 60 (>60) 01/24/20 05:50 Est GFR (MDRD) Non-Af > 60 (>60) 01/24/20 05:50 Glucose 147 mg/dL (75-110) H 01/24/20 05:50 Calcium 9.4 mg/dL (8.4-10.2) 01/24/20 05:50 Magnesium 2.7 mg/dL (1.6-2.3) H 01/24/20 05:50 Total Bilirubin 0.4 mg/dL (0.2-1.3) 01/23/20 05:06 Direct Bilirubin 0.0 mg/dL (0.0-0.4) 01/23/20 05:06 Neonat Total Bilirubin Not Reportable 01/23/20 05:06 Neonat Direct Bilirubin Not Reportable 01/23/20 05:06 Neonat Indirect Bili Not Reportable 01/23/20 05:06 AST 21 U/L (14-36) 01/23/20 05:06 ALT 21 U/L (<35) 01/23/20 05:06 Alkaline Phosphatase 118 U/L (38-126) 01/23/20 05:06 Troponin I < 0.012 ng/mL 01/22/20 06:25 NT-Pro-B Natriuret Pep 183 pg/mL (<125) H 01/22/20 06:25 Total Protein 6.9 g/dL (6.3-8.2) 01/23/20 05:06 Albumin 4.3 g/dL (3.5-5.0) 01/23/20 05:06 Urine Color YELLOW 01/22/20 03:05 Urine Appearance CLEAR 01/22/20 03:05 Urine pH 6.0 (5.0-9.0) 01/22/20 03:05 Ur Specific [place] 1.019 01/22/20 03:05 Urine Protein NEGATIVE mg/dL (NEGATIVE) 01/22/20 03:05 Urine Glucose (UA) NEGATIVE mg/dL (NEGATIVE) 01/22/20 03:05 Urine Ketones NEGATIVE mg/dL (NEGATIVE) 01/22/20 03:05 Urine Blood NEGATIVE (NEGATIVE) 01/22/20 03:05 Urine Nitrite NEGATIVE (NEGATIVE) 01/22/20 03:05 Urine Bilirubin NEGATIVE (NEGATIVE) 01/22/20 03:05 Urine Urobilinogen NEGATIVE mg/dL (<2.0) 01/22/20 03:05 Ur Leukocyte Esterase NEGATIVE (NEGATIVE) 01/22/20 03:05 Urine WBC (Auto) 1 /HPF 01/22/20 03:05 Urine RBC (Auto) 0 /HPF 01/22/20 03:05 Urine Bacteria (Auto) TRACE /HPF 01/22/20 03:05 Squamous Epi Cells Auto 2 /HPF 01/22/20 03:05 Urine Mucus (Auto) RARE /LPF 01/22/20 03:05 Urine Ascorbic Acid NEGATIVE (NEGATIVE) 01/22/20 03:05 01/22/20 01/22/20 06:25 06:25 Troponin I < 0.012 NT-Pro-B Natriuret Pep 183 H Impressions: Chest X-Ray 01/22/20 06:13 IMPRESSION: 1. Interval increase in bibasilar opacities concerning for pneumonia. Stroke Is this a Stroke Patient?: No Acute Heart Failure - Is this a Heart Failure Patient?: No
[2020-01-24] MEDS ORDERED: LORAZEPAM 1 MG TABLET PO ONE (14:30)
[2020-01-24 14:33] VITALS: BP 149/87
== END 2020-01-24 14:40 | disposition home or self-care (01) ==
LOC: ER 00:43 → EH 12:58 → INTOOBSV 12:58 → 3S 14:19
PROVIDERS: ADMIT Internal Medicine; ATTEND Internal Medicine
DX: J13 Pneumonia due to Streptococcus pneumoniae (principal); J44.0 Chronic obstructive pulmonary disease with (acute) lower respiratory infection; J44.1 Chronic obstructive pulmonary disease with (acute) exacerbation; I10 Essential (primary) hypertension; E66.01 Morbid (severe) obesity due to excess calories; Z68.42 Body mass index [BMI] 45.0-49.9, adult; F31.9 Bipolar disorder, unspecified; E78.5 Hyperlipidemia, unspecified; F17.210 Nicotine dependence, cigarettes, uncomplicated; M19.90 Unspecified osteoarthritis, unspecified site; K21.9 Gastro-esophageal reflux disease without esophagitis; Z79.899 Other long term (current) drug therapy; Z88.5 Allergy status to narcotic agent; Z98.890 Other specified postprocedural states; Z88.2 Allergy status to sulfonamides; Z91.041 Radiographic dye allergy status; Z91.040 Latex allergy status
CPT/HCPCS: 99406; 99285; 36415 ×3; 83735 ×2; 85025 ×2; 85027; 80048; 80053 ×2; 81001; 84484; 83880; 71045; 93005; 93010; 94640; G0378 ×2; A9270 ×29; J1644 ×3; J1940; J2920 ×3; J1885 ×3; J1170 ×2; J2550 ×2; J2405 ×3; J7060 ×3; J7120; J0456 ×3; J0696 ×3; J3490

== ENCOUNTER 2020-01-30 22:02 | Observation (INO) | payer MEDICARE ==
[2020-01-30] MEDS ORDERED: ACETAMINOPHEN 325 MG TABLET PO ONE (23:54)
[2020-01-30] MEDS ORDERED: METHYLPREDNISOLONE INJ 125 MG/2 ML SDV IV ONE (23:54)
[2020-01-30] MEDS ORDERED: DIPHENHYDRAMINE HCL 50 MG/ML VIAL IV ONE (23:54)
--- NOTE | 2020-01-31 00:03 | RADIOLOGY REPORT (SQ) ---
CLINICAL HISTORY: SOB copd pna COMPARISON: 01/22/2020. TECHNIQUE: XR CHEST 1 VIEW 01/30/2020 11:24 PM CDT FINDINGS: Cardiac silhouette is normal in size. There is minimal right basilar airspace disease. Right shoulder arthroplasty was performed. There is no pleural effusion. There is no pneumothorax. There are no acute osseous findings. IMPRESSION: Unchanged right basilar presumed pneumonia.
--- NOTE | 2020-01-31 00:10 | ER Document Report ---
ED General - General Chief Complaint: Blood Pressure Problem Stated Complaint: SHORTNESS OF BREATH Primary Care Provider: SADIE FARR MD [Primary Care Provider] - Follow up as needed TRAVEL OUTSIDE OF THE [place] IN LAST 30 DAYS: No - HPI Notes: 54-year-old female history of smoking, COPD, hypertension, hyperlipidemia, morbid obesity, admission for COPD exacerbation and pneumonia discharged 01/24/2020 presents with intermittent retrosternal nonradiating chest pain described as feeling of tightness aggravated by exertion that is been present since hospital discharge. Patient was discharged on Augmentin and Cipro which she finished about 4 days ago and prednisone which she also finished about 4 days ago. patient also endorses dyspnea on exertion and feeling of general lysed weakness fatigue and myalgia and episode of syncope at home which was preceded by feeling of lightheadedness without trauma. Patient had stress test about 4 years ago, and says she is supposed to be seen "for her heart "but unable to elaborate. Patient denies any known cardiac history, CHF history, fever, cough, lower extremity edema, DVT/PE/hyper coag history, hemoptysis, recent travel/trauma/surgery, exogenous estrogen therapy, cancer history. - Related Data Allergies/Adverse Reactions: Iodinated Contrast Media [IV Dye, Iodine Containing] Allergy (Verified 01/22/20 07:53) latex [Latex] Allergy (Verified 01/22/20 07:53) morphine Allergy (Verified 01/22/20 07:53) Sulfa (Sulfonamide Antibiotics) Allergy (Verified 01/22/20 07:53) Past Medical History - General Information source: Patient, [facility] Records - Social History Smoking Status: Current Every Day Smoker Chew tobacco use (# tins/day): No Frequency of alcohol use: None Drug Abuse: None Family History: Reviewed & Not Pertinent Patient has homicidal ideation: No - Past Medical History Cardiac Medical History: Reports: Hx Hypercholesterolemia, Hx Hypertension Pulmonary Medical History: Reports: Hx Asthma, Hx COPD Renal/ Medical History: Denies: Hx Peritoneal Dialysis GI Medical History: Reports: Hx Gastroesophageal Reflux Disease Musculoskeletal Medical History: Reports Hx Arthritis, Reports Hx Fibromyalgia Psychiatric Medical History: Reports: Hx Anxiety, Hx Depression Traumatic Medical History: Reports: Hx Fractures Past Surgical History: Reports: Hx Section, Hx Cholecystectomy, Hx Hysterectomy, Hx Orthopedic Surgery - left and right knee replacement, spinal fusion lower - Immunizations Hx Diphtheria, Pertussis, Tetanus Vaccination: No Hx Pneumococcal Vaccination: 06/29/09 Review of Systems - Review of Systems Notes: REVIEW OF SYSTEMS: CONSTITUTIONAL : Denies fever, chills, or sweats. EENT: Denies recent cold/sinus symptoms, denies throat pain CARDIOVASCULAR: + chest pain, -GAMAL RESPIRATORY: Denies cough, +shortness of breath. GASTROINTESTINAL: Denies abdominal pain, nausea/vomiting. GENITOURINARY: Denies difficulty urinating, painful urination. FEMALE GENITOURINARY: Denies abnormal vaginal bleeding, vaginal discharge. MUSCULOSKELETAL: Denies neck pain, back pain. SKIN: Denies rash or skin lesions. HEMATOLOGIC : Denies easy bruising or bleeding. LYMPHATIC: Denies swollen, enlarged glands. NEUROLOGICAL: Denies headache, denies change in gait. PSYCHIATRIC: Denies anxiety or stress or depression. Physical Exam - Vital signs Vitals: Temp Pulse Resp BP Pulse Ox 98.2 F 107 H 18 131/71 H 98 01/30/20 22:18 01/30/20 22:18 01/30/20 22:18 01/30/20 22:18 01/30/20 22:18 - Notes Notes: PHYSICAL EXAMINATION: GENERAL: Well-appearing, well-nourished and in no acute distress. HEAD: Atraumatic, normocephalic. EYES: Pupils equal round and appropriate constriction, sclera anicteric, conjunctiva are normal. ENT: nares patent, moist mucous membranes. NECK: Normal range of motion, supple without lymphadenopathy, no C/T/L/S-spine tenderness or deformity LUNGS: Breath sounds clear to auscultation bilaterally and equal. No wheezes rales or rhonchi. Normal respiratory rate and effort HEART: Regular rate and rhythm without murmurs ABDOMEN: Soft, nontender, no guarding, no masses, no CVAT, few left lower quadrant ecchymoses (from subQ heparin while inpatient) EXTREMITIES: Normal range of motion, no pitting or edema. No cyanosis. No bony tenderness on full head to toe examination and no pain on axial loading of all extremities, few small ecchymoses on bilateral forearms without any bony tenderness or edema. NEUROLOGICAL: Awake, alert, conversing appropriately, moves all extremities spontaneously. PSYCH: Normal mood, normal affect. SKIN: Warm, Dry, normal turgor Course - Re-evaluation Re-evalutation: 01/31/20 00:10 Patient very well-appearing, no sign of any significant trauma and head to toe examination after syncope, symptoms concerning for possible ACS versus new onset CHF versus PE. Patient's respiratory exam normal and good air movement without wheezing, will obtain VBG but does not immediately appear to be COPD exacerbation. Rule out COVID, pneumonia, ACS, CHF, PE, occult anemia, electrolyte abnormalities. We will continue to monitor patient in ED pending results of work-up. 01/31/20 02:37 Patient continuing to complain of chest pain. Exam is unchanged, patient appears very comfortable I ordered repeat EKG. D-dimer normal but given that patient complaining of shortness of breath and normal lung exam and normal VBG and x-ray unchanged concern remains for PE so I ordered CTA for rule out PE and also evaluation of area read as pneumonia on chest x-ray. No signs of fluid overload on exam, x-ray, and BNP ordered, so I ordered fluid bolus as patient is clinically dehydrated. Ordered antibiotics for HCAP coverage, increased WBCs on UA but patient has no urinary symptoms, will be covered by HCAP antibiotics if patient does have UTI and reflex culture is pending. Insufficiently high suspicion for PE to empirically anticoagulate at this time, will continue to monitor. Discussed patient with hospitalist Dr. Hwang who is coming to evaluate patient. 01/31/20 03:[address] Hwang to observation telemetry - Vital Signs Vital signs: Temp Pulse Resp BP Pulse Ox 98.0 F 107 H 19 130/81 H 97 01/30/20 23:29 01/30/20 22:18 01/30/20 23:29 01/30/20 23:29 01/30/20 23:29 - Laboratory Result Diagrams: 01/31/20 00:26 01/31/20 00:26 Laboratory results interpreted by me: 01/31/20 01/31/20 01/31/20 00:26 00:26 01:43 WBC 16.9 H Abs Neuts (Manual) 11.8 H Sodium 134.7 L BUN 25 H Total Protein 6.2 L Urine Blood SMALL H Leukocyte Esterase Rfl LARGE H - EKG Interpretation by Me Additional EKG results interpreted by me: 01/31/20 00:15 Heart rate 89, computer read as possible atrial arrhythmia but appears to be sinus rhythm with atypical P wave morphology, no significant ST elevations, e quivocal submillimeter inferior ST depressions, no prior EKG available, QTc 497 01/31/20 02:53 Repeat EKG, rate 99, no significant ST elevations, equivocal ST depressions nondynamic, no significant change from initial EKG Discharge - Discharge Clinical Impression: Shortness of breath Chest pain Qualifiers: Chest pain type: other chest pain Qualified Code(s): R07.89 - Other chest pain; R07.8 - Other chest pain Pneumonia Qualifiers: Pneumonia type: due to unspecified organism Laterality: right Lung location: unspecified part of lung Qualified Code(s): J18.9 - Pneumonia, unspecified organism Disposition: ADMITTED OBSERVATION Admitting Provider: Eri (Hospitalist) Unit Admitted: Telemetry Referrals: SADIE FARR MD [Primary Care Provider] - Follow up as needed
[2020-01-31 01:03] LABS: HEMATOCRIT 40.6 % (36.0-47.0); HEMOGLOBIN 13.6 g/dL (12.0-15.5); MEAN CORPUSCULAR HEMOGLOBIN 30.3 pg (27.0-33.4); MEAN CORPUSCULAR HGB CONC 33.5 g/dL (32.0-36.0); MEAN CORPUSCULAR VOLUME 90 fl (80-97); PLATELET COUNT 224 10^3/uL (150-450); RED CELL DISTRIBUTION WIDTH 13.9 % (11.5-14.0); WHITE BLOOD COUNT 16.9 10^3/uL (4.0-10.5)
[2020-01-31 01:11] LABS: ALBUMIN 3.9 g/dL (3.5-5.0); ALKALINE PHOSPHATASE 89 U/L (38-126); ANION GAP 5 (5-19); ASPARTATE AMINO TRANSFERASE 21 U/L (14-36); BILIRUBIN,DIRECT 0.1 mg/dL (0.0-0.4); BILIRUBIN,TOTAL 0.3 mg/dL (0.2-1.3); BLOOD UREA NITROGEN 25 mg/dL (7-20); CALCIUM 8.8 mg/dL (8.4-10.2); CARBON DIOXIDE 27 mmol/L (22-30); CHLORIDE 103 mmol/L (98-107); CREATINE KINASE 55 U/L (30-135); GLUCOSE 102 mg/dL (75-110); POTASSIUM 4.2 mmol/L (3.6-5.0); TOTAL PROTEIN 6.2 g/dL (6.3-8.2)
[2020-01-31 01:22] LABS: TROPONIN I 0.017 ng/mL
[2020-01-31 01:37] LABS: ABSOLUTE LYMPHOCYTES# (MANUAL) 3.9 10^3/uL (0.5-4.7); ABSOLUTE MONOCYTES # (MANUAL) 1.2 10^3/uL (0.1-1.4); BASOPHILS % (MANUAL) 0 % (0-2); EOSINOPHILS % (MANUAL) 0 % (0-6); LYMPHOCYTES % (MANUAL) 23 % (13-45); MONOCYTES % (MANUAL) 7 % (3-13); SEGMENTED NEUTROPHILS % (MAN) 70 % (42-78); TOTAL CELLS COUNTED 100
[2020-01-31 01:39] LABS: OVALOCYTES SLIGHT; PLATELET COMMENT ADEQUATE; POIKILOCYTOSIS SLIGHT; SCHISTOCYTES SLIGHT; TOXIC GRANULATION 1+
[2020-01-31] MEDS ORDERED: NORMAL SALINE 1000 ML 1,000 ML IV ONE (01:42)
[2020-01-31 01:43] LABS: VENOUS BLOOD BASE EXCESS -2.5 mmol/L; VENOUS BLOOD HCO3 22.1 mmol/L (20-32); VENOUS BLOOD PCO2 37.5 mmHg (35-63); VENOUS BLOOD PH 7.39 (7.30-7.42)
[2020-01-31] MEDS ORDERED: KETOROLAC TROMETHAMINE INJ/PF 30 MG/1 ML SDV IV ONE (01:47)
[2020-01-31 02:03] LABS: APPEARANCE,URINE SLIGHTLY-CLOUDY; BILIRUBIN,URINE NEGATIVE (NEGATIVE); COLOR,URINE YELLOW; GLUCOSE, URINE NEGATIVE (NEGATIVE); KETONES,URINE NEGATIVE (NEGATIVE); PROTEIN,URINE NEGATIVE (NEGATIVE); URINE SPECIFIC GRAVITY 1.024; UROBILINOGEN,URINE NEGATIVE mg/dL (<2.0)
[2020-01-31] MEDS ORDERED: VANCOMYCIN HCL INJ 1000 MG VIAL IV ONE (02:14)
[2020-01-31] MEDS ORDERED: CEFEPIME 2 GM/D5W RTU 2 GM/50 ML RTUPB IV ONE (02:14)
[2020-01-31] MEDS ORDERED: AZITHROMYCIN INJ 500 MG VIAL IV ONE ×2 (02:15→06:00)
--- NOTE | 2020-01-31 03:14 | PDOC H&P ---
History of Present Illness Admission Date/PCP: SADIE FARR MD History of Present Illness: JEET FIGUEROA is a 54 year old female recently d/c'd from here 5 days ago for PNA and AECOPD. Has hx HTN, morbid obesity, bipolar, fibromyalgia, current every day smoker. Said she "fell out" at home and checked BP, said SBP in 90's. BPs here have all been normal, no syncopal events. No cough or SOB, but said gets tired easily. Also c/o mid-sternal CP that has been prolonged and not relieved by rest. Normal telemetry, no signs of acute ischemia on EKG. CXR showed remnants of recent PNA. Asked specifically for Dilaudid and cried when I declined to order it. Dr. Hammond decided to order a CTA chest, not sure why. D- dimer negative. Past Medical History Cardiac Medical History: Reports: Hyperlipidema, Hypertension Pulmonary Medical History: Reports: Asthma, Chronic Obstructive Pulmonary Disease (COPD) GI Medical History: Reports: Gastroesophageal Reflux Disease Musculoskeltal Medical History: Reports: Arthritis, Fibromyalgia Psychiatric Medical History: Reports: Depression Past Surgical History Past Surgical History: Reports: Section, Cholecystectomy, Hysterectomy, Orthopedic Surgery - left and right knee replacement, spinal fusion lower Social History Smoking Status: Current Every Day Smoker Electronic Cigarette use?: No Frequency of Alcohol Use: None Hx Recreational Drug Use: No Hx Prescription Drug Abuse: No Family History Family History: Reviewed & Not Pertinent Parental Family History Reviewed: Yes Children Family History Reviewed: Yes Sibling(s) Family History Reviewed.: Yes Medication/Allergy Home Medications: Quetiapine Fumarate 150 mg PO QHS 08/29/15 Doxycycline Hyclate [Vibramycin 100 mg Tablet] 100 mg PO BID #10 tablet MDD FILLED 01/15 FOR 5 DAY SUPPLY 01/16/20 Amitriptyline HCl [Elavil 75 mg Tablet] 75 mg PO HSP PRN 01/22/20 Amlodipine Besylate [Norvasc 10 mg Tablet] 10 mg PO DAILY 01/22/20 Benzonatate [Tessalon Perles 100 mg Capsule] 100 mg PO Q8HP PRN MDD FILLED 01/15 FOR 5 DAY SUPPLY 01/22/20 Buspirone HCl [Buspar 10 mg Tablet] 20 mg PO Q8 01/22/20 Clonazepam 0.5 mg PO DAILYP PRN 01/22/20 Duloxetine HCl 30 mg PO QHS 01/22/20 Duloxetine HCl 60 mg PO DAILY 01/22/20 Hydroxyzine Pamoate [Vistaril 50 mg Capsule] 50 mg PO Q12HP PRN 01/22/20 Lamotrigine 150 mg PO QHS 01/22/20 Lamotrigine 200 mg PO DAILY 01/22/20 Linaclotide [Linzess 145 Mcg Capsule] 145 mcg PO Q6AM 01/22/20 Methocarbamol [Robaxin 750 mg Tablet] 750 mg PO QIDP PRN 01/22/20 Metoprolol Succinate [Toprol Xl 25 mg Tab.sr] 25 mg PO DAILY 01/22/20 Olmesartan Medoxomil 40 mg PO DAILY 01/22/20 Pantoprazole Sodium [Protonix [address] Tablet] 40 mg PO QAM 01/22/20 Rosuvastatin Calcium 5 mg PO QHS 01/22/20 Tramadol HCl [Ultram 50 mg Tablet] 50 mg PO Q8HP PRN 01/22/20 Amoxicillin/Potassium Clav [Augmentin 875-125 Tablet] 1 tab PO BID 3 Days #6 tab 01/24/20 Azithromycin [Zithromax Tri-Twin] 500 mg PO DAILY 3 Days #3 pkg 01/24/20 Budesonide/Formoterol Fumarate [Symbicort HFA 160-4.5 mcg Inhaler 6 gm] 2 puff IH Q12 #1 inhaler 01/24/20 Lidocaine [Lidoderm 5% (700 mg) Transdermal Patch] 1 patch TP DAILY #30 adh..patch 01/24/20 Prednisone [Deltasone 20 mg Tablet] 40 mg PO DAILY 3 Days #6 tablet 01/24/20 Allergies/Adverse Reactions: Iodinated Contrast Media [IV Dye, Iodine Containing] Allergy (Verified 01/22/20 07:53) latex [Latex] Allergy (Verified 01/22/20 07:53) morphine Allergy (Verified 01/22/20 07:53) Sulfa (Sulfonamide Antibiotics) Allergy (Verified 01/22/20 07:53) Review of Systems All systems: reviewed and no additional remarkable complaints except as stated - all systems were reviewed and were negative except as noted in HPI Physical Exam Vital Signs: Temp Pulse Resp BP Pulse Ox 98.0 F 107 H 19 130/81 H 97 01/30/20 23:29 01/30/20 22:18 01/30/20 23:29 01/30/20 23:29 01/30/20 23:29 Intake & Output 01/29/20 01/30/20 01/31/20 06:59 06:59 06:59 Weight 121.563 kg General appearance: PRESENT: no acute distress, cooperative, disheveled, morbidly obese Head exam: PRESENT: atraumatic, normocephalic Eye exam: PRESENT: EOMI, PERRLA. ABSENT: conjunctival injection, nystagmus, scleral icterus Ear exam: PRESENT: normal external ear exam Mouth exam: PRESENT: moist, neck supple Throat exam: ABSENT: post pharyngeal erythema Neck exam: PRESENT: full ROM. ABSENT: carotid bruit, JVD, lymphadenopathy, meningismus, tenderness, thyromegaly Respiratory exam: PRESENT: clear to auscultation deonna, symmetrical, unlabored. ABSENT: accessory muscle use, chest wall tenderness, crackles, prolonged expiratory phas, rhonchi, tachypnea, wheezes Cardiovascular exam: PRESENT: RRR, +S1, +S2 Pulses: PRESENT: normal carotid pulses Vascular exam: PRESENT: normal capillary refill GI/Abdominal exam: PRESENT: normal bowel sounds, rigid, other - pendulous abdominal pannus, bruises from recent DVT ppx. ABSENT: distended, guarding, rebound, soft Extremities exam: ABSENT: clubbing, pedal edema Musculoskeletal exam: PRESENT: normal inspection. ABSENT: deformity Neurological exam: PRESENT: awake, oriented to person, oriented to place, oriented to situation, CN II-XII grossly intact. ABSENT: motor sensory deficit Psychiatric exam: PRESENT: anxious - mostly when asking for narcotics Skin exam: PRESENT: dry, warm Results Laboratory Results: 01/31/20 00:26 01/31/20 00:26 01/31/20 01/31/20 01/31/20 00:26 00:26 00:26 WBC 16.9 H RBC 4.50 Hgb 13.6 Hct 40.6 MCV 90 MCH 30.3 MCHC 33.5 RDW 13.9 Plt Count 224 Seg Neutrophils % Not Reportable VBG pH VBG pCO2 VBG HCO3 VBG Base Excess Sodium 134.7 L Potassium 4.2 Chloride 103 Carbon Dioxide 27 Anion Gap 5 BUN 25 H Creatinine 0.90 Est GFR ( Amer) > 60 Glucose 102 Lactic Acid 1.7 Calcium 8.8 Phosphorus 4.0 Magnesium 2.3 Total Bilirubin 0.3 AST 21 Alkaline Phosphatase 89 Total Protein 6.2 L Albumin 3.9 Lipase Urine Color Urine Appearance Urine pH Ur Specific [place] Urine Protein Urine Glucose (UA) Urine Ketones Urine Blood Urine RBC (Auto) 01/31/20 01/31/20 01/31/20 00:26 01:27 01:43 WBC RBC Hgb Hct MCV MCH MCHC RDW Plt Count Seg Neutrophils % VBG pH 7.39 VBG pCO2 37.5 VBG HCO3 22.1 VBG Base Excess -2.5 Sodium Potassium Chloride Carbon Dioxide Anion Gap BUN Creatinine Est GFR ( Amer) Glucose Lactic Acid Calcium Phosphorus Magnesium Total Bilirubin AST Alkaline Phosphatase Total Protein Albumin Lipase 134.2 Urine Color YELLOW Urine Appearance SLIGHTLY-CLOUDY Urine pH 5.0 Ur Specific [place] 1.024 Urine Protein NEGATIVE Urine Glucose (UA) NEGATIVE Urine Ketones NEGATIVE Urine Blood SMALL H Urine RBC (Auto) 01/31/20 01/31/20 00:26 00:26 Creatine Kinase 55 Troponin I 0.017 NT-Pro-B Natriuret Pep 100 Impressions: Chest X-Ray 01/30/20 23:24 IMPRESSION: Unchanged right basilar presumed pneumonia. Assessment and Plan - Diagnosis (1) Chest pain Qualifiers: Chest pain type: other chest pain Qualified Code(s): R07.89 - Other chest pain; R07.8 - Other chest pain Is this a current diagnosis for this admission?: Yes Plan: Will trend troponins, keep on telemetry, f/u EKG. CTA chest pending but I suspect will be low-yield. I suspect we will see remnants of recent PNA. Some of this could be pleurisy. She was upset when I declined to order Dilaudid for her. (2) Bipolar 1 disorder Is this a current diagnosis for this admission?: Yes Plan: continue home meds (3) COPD (chronic obstructive pulmonary disease) Qualifiers: COPD type: chronic bronchitis Chronic bronchitis type: simple Qualified Code(s): J41.0 - Simple chronic bronchitis Is this a current diagnosis for this admission?: Yes Plan: continue home meds (4) Hypertension Qualifiers: Hypertension type: essential hypertension Qualified Code(s): I10 - Essential (primary) hypertension Is this a current diagnosis for this admission?: Yes Plan: BP is normal. Will hold a couple of her meds to avoid hypotension. (5) Morbid obesity with BMI of 45.0-49.9, adult Is this a current diagnosis for this admission?: Yes Plan: Strongly encouraged lifestyle modification - Time Time Spent with patient: 35 or more minutes Anticipated Discharge Disposition: Home, Self Care Anticipated Discharge Timeframe: within 24 hours
[2020-01-31] MEDS ORDERED: LORAZEPAM 0.5 MG TABLET PO ONE (03:57)
[2020-01-31] MEDS ORDERED: DIPHENHYDRAMINE HCL 50 MG/ML VIAL IV ONE (04:14)
[2020-01-31] MEDS ORDERED: FAMOTIDINE INJ/PF 20 MG/2 ML SDV IV ONE (04:15)
--- NOTE | 2020-01-31 06:10 | RADIOLOGY REPORT (SQ) ---
CLINICAL HISTORY: SOB tachycardia. CREAT 0.90 COMPARISON: None. TECHNIQUE: CT CHEST ANGIOGRAPHY WITHOUT THEN WITH IV CONTRAST on 01/31/2020 1:48 AM CDT. MIPS reconstructions were generated. This exam was performed according to our departmental dose-optimization program, which includes automated exposure control, adjustment of the mA and/or kV according to patient size and/or use of iterative reconstruction technique. MIP images were generated. FINDINGS: Thoracic aorta is normal in course and caliber without aneurysm or dissection. Pulmonary arteries are adequately opacified without acute or chronic filling defects. The heart is normal in size. There is no pericardial effusion. Intrathoracic lymph nodes are not enlarged. There is no pleural effusion, pleural thickening or pneumothorax. Central airways are patent. Lungs are clear with no consolidation, mass or interstitial lung disease. There are no acute abnormalities within the limited images of the upper abdomen. There are no acute osseous findings. No suspicious bony lesions. IMPRESSION: No aortic dissection or aneurysm. No pulmonary embolus. No pneumonia.
[2020-01-31] MEDS: HEPARIN SOD (PORCINE) 5,000 UNIT/ML 1 ML VIAL SUBCUT SCH ×3 (06:15→21:38)
[2020-01-31 07:05] LABS: HEMATOCRIT 39.6 % (36.0-47.0); HEMOGLOBIN 13.4 g/dL (12.0-15.5); MEAN CORPUSCULAR HEMOGLOBIN 30.4 pg (27.0-33.4); MEAN CORPUSCULAR HGB CONC 33.9 g/dL (32.0-36.0); MEAN CORPUSCULAR VOLUME 90 fl (80-97); PLATELET COUNT 184 10^3/uL (150-450); RED BLOOD COUNT 4.42 10^6/uL (3.72-5.28); RED CELL DISTRIBUTION WIDTH 13.9 % (11.5-14.0); WHITE BLOOD COUNT 12.7 10^3/uL (4.0-10.5)
[2020-01-31 07:33] LABS: ANION GAP 9 (5-19); BLOOD UREA NITROGEN 24 mg/dL (7-20); CALCIUM 8.7 mg/dL (8.4-10.2); CARBON DIOXIDE 23 mmol/L (22-30); CHLORIDE 103 mmol/L (98-107); GLUCOSE 186 mg/dL (75-110)
[2020-01-31] MEDS: NITROGLYCERIN 0.4 MG/TAB 25 TAB/BOTTLE SL PRN ×2 (08:34→10:59)
--- NOTE | 2020-01-31 09:29 | EKG REPORT ---
SEVERITY:- ABNORMAL ECG - SINUS RHYTHM PROBABLE INFERIOR INFARCT, OLD : Confirmed by: Baron Mcclain MD 31-Jan-2020 09:28:26
--- NOTE | 2020-01-31 09:33 | EKG REPORT ---
SEVERITY:- ABNORMAL ECG - SINUS RHYTHM NONSPECIFIC INTRAVENTRICULAR CONDUCTION DELAY INFERIOR INFARCT, OLD : Confirmed by: Baron Mcclain MD 31-Jan-2020 09:32:42
--- NOTE | 2020-01-31 09:34 | EKG REPORT ---
SEVERITY:- ABNORMAL ECG - SINUS RHYTHM NONSPECIFIC INTRAVENTRICULAR CONDUCTION DELAY ST DEPRESSION, CONSIDER ISCHEMIA, INF LEADS : Confirmed by: Baron Mcclain MD 31-Jan-2020 09:33:31
[2020-01-31] MEDS: ACETAMINOPHEN 325 MG TABLET PO PRN (10:59)
[2020-01-31] MEDS: ONDANSETRON HCL INJ/PF 4 MG/2 ML SDV IV PRN (11:44)
[2020-01-31] MEDS ORDERED: LORAZEPAM 1 MG TABLET ONE (12:41)
[2020-01-31] MEDS ORDERED: LORAZEPAM INJ 2 MG/1 ML VIAL ONE (13:49)
[2020-01-31] MEDS ORDERED: LORAZEPAM INJ 2 MG/1 ML VIAL IV ONE (14:15)
[2020-01-31] MEDS ORDERED: HYDROXYZINE PAMOATE 50 MG CAPSULE PO PRN (15:18)
--- NOTE | 2020-01-31 15:29 | Progress Note ---
Provider Note Provider Note: Patient admitted late this morning by Dr. Hwang for left-sided chest pain. Patient seen and examined by me Admitted for rule out of ACS. Troponins flat/negative, EKG without acute findings, CTPA negative for PE. UA showed possible infection though patient has no urinary symptoms. Discussed the case with Dr. Becerril who agreed with echocardiogram and nuclear stress test. Patient very anxious today and has reproducible left-sided chest pain most notable with palpation. She became much calmer after being given some Ativan and restarting her psychiatric medications.
[2020-01-31] MEDS: METOPROLOL SUCCINATE 25 MG TAB.SR.24H PO SCH (15:44)
[2020-01-31] MEDS: BUSPIRONE HCL 10 MG TABLET PO SCH ×2 (15:44→21:40)
[2020-01-31] MEDS: LAMOTRIGINE 100 MG TABLET PO SCH ×2 (15:45→21:38)
[2020-01-31] MEDS: OXYCODONE HCL IR 5 MG TABLET PO PRN (15:45)
[2020-01-31] MEDS: DULOXETINE HCL 30 MG CAPSULE.DR PO SCH (17:29)
[2020-01-31] MEDS: METHOCARBAMOL 750 MG TABLET PO SCH ×2 (17:29→22:23)
[2020-01-31] MEDS ORDERED: HYDROMORPHONE HCL INJ/PF 2 MG/ML AMPULE IV PRN ×4 (20:56→21:05)
[2020-01-31] MEDS: ATORVASTATIN CALCIUM 10 MG TABLET PO SCH (21:46)
[2020-01-31] MEDS ORDERED: (PENDING PHARMACY ID) (Rosuvastatin Calcium [Rosuvastatin Calcium] 5 MG) PO SCH (22:00)
[2020-01-31] MEDS: AMITRIPTYLINE HCL 75 MG TABLET PO PRN (23:18)
[2020-02-01] MEDS: HYDROMORPHONE HCL INJ/PF 2 MG/ML AMPULE IV PRN ×2 (00:02→13:31)
[2020-02-01 05:39] LABS: HEMATOCRIT 39.8 % (36.0-47.0); HEMOGLOBIN 13.4 g/dL (12.0-15.5); MEAN CORPUSCULAR HEMOGLOBIN 30.2 pg (27.0-33.4); MEAN CORPUSCULAR HGB CONC 33.8 g/dL (32.0-36.0); MEAN CORPUSCULAR VOLUME 89 fl (80-97); PLATELET COUNT 201 10^3/uL (150-450); RED BLOOD COUNT 4.45 10^6/uL (3.72-5.28); RED CELL DISTRIBUTION WIDTH 13.9 % (11.5-14.0); WHITE BLOOD COUNT 14.4 10^3/uL (4.0-10.5)
[2020-02-01] MEDS ORDERED: (PENDING PHARMACY ID) (Linaclotide 145 MCG) PO SCH (06:00)
[2020-02-01 06:06] LABS: ANION GAP 8 (5-19); BLOOD UREA NITROGEN 19 mg/dL (7-20); CALCIUM 8.8 mg/dL (8.4-10.2); CARBON DIOXIDE 26 mmol/L (22-30); CHLORIDE 103 mmol/L (98-107); GLUCOSE 105 mg/dL (75-110); POTASSIUM 4.3 mmol/L (3.6-5.0)
[2020-02-01] MEDS: BUSPIRONE HCL 10 MG TABLET PO SCH ×3 (06:06→21:08)
[2020-02-01] MEDS: HEPARIN SOD (PORCINE) 5,000 UNIT/ML 1 ML VIAL SUBCUT SCH ×3 (06:07→21:09)
--- NOTE | 2020-02-01 07:44 | EKG REPORT ---
SEVERITY:- BORDERLINE ECG - SINUS RHYTHM BORDERLINE T ABNORMALITIES, INFERIOR LEADS : Confirmed by: Baron Mcclain MD 01-Feb-2020 07:43:37
[2020-02-01] MEDS: LAMOTRIGINE 100 MG TABLET PO SCH ×2 (07:56→21:08)
[2020-02-01] MEDS: OXYCODONE HCL IR 5 MG TABLET PO PRN ×2 (09:40→17:33)
[2020-02-01] MEDS: DULOXETINE HCL 30 MG CAPSULE.DR PO SCH ×2 (09:40→17:33)
[2020-02-01] MEDS: FLUTICASONE/VILANTEROL 200-25 MCG/DOSE IH SCH (09:40)
[2020-02-01] MEDS: LORAZEPAM 1 MG TABLET PO SCH (09:40)
[2020-02-01] MEDS: METOPROLOL SUCCINATE 25 MG TAB.SR.24H PO SCH (09:40)
[2020-02-01] MEDS: METHOCARBAMOL 750 MG TABLET PO SCH ×4 (09:40→21:08)
[2020-02-01] MEDS: PAROXETINE HCL 20 MG TABLET PO SCH (09:41)
[2020-02-01] MEDS: AMLODIPINE BESYLATE 10 MG TABLET PO SCH (09:41)
[2020-02-01] MEDS ORDERED: PANTOPRAZOLE SODIUM 40 MG TABLET.DR PO SCH (10:00)
--- NOTE | 2020-02-01 15:49 | XCELERA REPORT ---
[address] [address] Transthoracic Echocardiogram Report Name: JEET FIGUEROA Age: 54 yrs Gender: Female : 1965 Patient Status: Inpatient Patient Location: ^[facility]^B Study Date: 01/31/2020 01:01 PM Height: 63 in Weight: 277 lb BSA: 2.2 m2 Procedure: A two-dimensional transthoracic echocardiogram with color flow and Doppler was performed. Study Quality: Poor. Reason For Study: chest pain History: chest pain. Ordering Physician: YADIRA^^^DO Performed By: Kaur Baxter Interpretation Summary The left ventricle is normal in size. There is normal left ventricular wall thickness. LV EF is 60% Left ventricular systolic function is normal. Doppler measurements suggest impaired left ventricular relaxation, which is associated with grade I/IV or mild diastolic dysfunction The left ventricular wall motion is normal. cannot assess ASD ,VSD , or PFO.No defenite thrombus. The right ventricle is not well visualized secondary to technical limitations Right atrium not well visualized secondary to technical limitations The left atrial size is normal. There is no evidence of mitral valve prolapse. There is no mitral valve stenosis. There is a trace amount of mitral regurgitation There is no aortic valvular vegetation. There is no aortic valve stenosis There is no LVOT obstruction. No aortic regurgitation is present. There is no tricuspid stenosis. There is a trace to mild amount of tricuspid regurgitation There is mild pulmonary hypertension by echo RVSP is 33 to 38 mm of Hg , with RA mean of 5 to 10. There is no pulmonic valvular stenosis. There is no pulmonic valvular regurgitation. The aortic root is not well visualized but is probably normal size. The inferior vena cava appeared normal and decreased > 50% with respiration (RAP 5-10 mmHg) The inferior vena cava was not well visualized There is no pericardial effusion. MMode/2D Measurements & Calculations RVDd: 2.3 cm LVIDd: 4.3 cm FS: 31.0 % Ao root diam: 2.7 cm IVSd: 0.92 cm LVIDs: 3.0 cm EDV(Teich): 84.4 ml Ao root area: 5.7 cm2 LVPWd: 1.1 cm ESV(Teich): 34.7 ml EF(Teich): 58.9 % Doppler Measurements & Calculations MV E max baudilio: MV dec slope: Ao V2 max: LV V1 max P.1 cm/sec 693.3 cm/sec2 207.5 cm/sec 9.0 mmHg MV A max baudilio: MV dec time: 0.18 secAo max PG: LV V1 max: 157.2 cm/sec 17.2 mmHg 150.4 cm/sec MV E/A: 0.81 PA V2 max: TR max baudilio: 109.9 cm/sec 262.8 cm/sec PA max P.8 mmHg TR max P.6 mmHg Left Ventricle The left ventricle is normal in size. There is normal left ventricular wall thickness. LV EF is 60%. Left ventricular systolic function is normal. Doppler measurements suggest impaired left ventricular relaxation, which is associated with grade I/IV or mild diastolic dysfunction. The left ventricular wall motion is normal. cannot assess ASD ,VSD , or PFO.No defenite thrombus. Right Ventricle The right ventricle is not well visualized secondary to technical limitations. Atria Right atrium not well visualized secondary to technical limitations. The left atrial size is normal. Mitral Valve There is no evidence of mitral valve prolapse. There is no mitral valve stenosis. There is a trace amount of mitral regurgitation. Aortic Valve There is no aortic valvular vegetation. There is no aortic valve stenosis. There is no LVOT obstruction. No aortic regurgitation is present. Tricuspid Valve There is no tricuspid stenosis. There is a trace to mild amount of tricuspid regurgitation. There is mild pulmonary hypertension by echo. RVSP is 33 to 38 mm of Hg , with RA mean of 5 to 10. Pulmonic Valve There is no pulmonic valvular stenosis. There is no pulmonic valvular regurgitation. Great Vessels The aortic root is not well visualized but is probably normal size. The inferior vena cava appeared normal and decreased > 50% with respiration (RAP 5-10 mmHg). The inferior vena cava was not well visualized. Effusions There is no pericardial effusion. : BL[place]^^^DO Pretty Becerril
[2020-02-01] MEDS: ACETAMINOPHEN 325 MG TABLET PO PRN ×2 (16:13→22:46)
[2020-02-01] MEDS ORDERED: DEXTROSE 40% GEL 15 GM TUBE PO PRN ×2 (18:24)
[2020-02-01] MEDS ORDERED: DEXTROSE 50%-WATER 25 GM/50 ML DISP.SYRIN IV PRN ×2 (18:24)
[2020-02-01] MEDS ORDERED: GLUCAGON,HUMAN RECOMB 1 MG INJ SUBCUT PRN (18:24)
--- NOTE | 2020-02-01 18:40 | PDOC PROGRESS REPORT ---
Subjective Progress Note for:: 02/01/20 Subjective:: Patient reports "flulike feeling". Denies SOB Reason For Visit: CHEST PAIN Physical Exam Vital Signs: Temp Pulse Resp BP Pulse Ox 98.6 F 79 18 134/72 H 98 02/01/20 15:33 02/01/20 15:33 02/01/20 15:33 02/01/20 15:33 02/01/20 15:33 Intake & Output 01/31/20 02/01/20 02/02/20 06:59 06:59 06:59 Intake Total 1050 1798 941 Balance 1050 1798 941 Weight 125.8 kg 123.7 kg General appearance: PRESENT: no acute distress, cooperative, morbidly obese Head exam: PRESENT: atraumatic, normocephalic Eye exam: PRESENT: conjunctiva pink Mouth exam: PRESENT: moist, tongue midline Respiratory exam: PRESENT: clear to auscultation deonna, decreased breath sounds - Entry diminished at bases bilaterally, prolonged expiratory phas, symmetrical, unlabored. ABSENT: accessory muscle use Cardiovascular exam: PRESENT: RRR, +S1, +S2 Pulses: PRESENT: normal carotid pulses, normal radial pulses Vascular exam: PRESENT: normal capillary refill GI/Abdominal exam: PRESENT: normal bowel sounds, soft. ABSENT: distended, tenderness Rectal exam: PRESENT: deferred Extremities exam: ABSENT: calf tenderness, pedal edema Neurological exam: PRESENT: alert, awake, oriented to person, oriented to place, oriented to time, oriented to situation, CN II-XII grossly intact Psychiatric exam: PRESENT: normal mood. ABSENT: agitated, anxious Skin exam: PRESENT: dry, normal color, warm Results Laboratory Results: 02/01/20 04:28 02/01/20 04:28 02/01/20 02/01/20 04:28 04:28 WBC 14.4 H RBC 4.45 Hgb 13.4 Hct 39.8 MCV 89 MCH 30.2 MCHC 33.8 RDW 13.9 Plt Count 201 Sodium 136.5 L Potassium 4.3 Chloride 103 Carbon Dioxide 26 Anion Gap 8 BUN 19 Creatinine 0.82 Est GFR ( Amer) > 60 Glucose 105 Calcium 8.8 01/31/20 01/31/20 01/31/20 00:26 00:26 06:30 Creatine Kinase 55 Troponin I 0.017 0.014 NT-Pro-B Natriuret Pep 100 01/31/20 12:45 Creatine Kinase Troponin I < 0.012 NT-Pro-B Natriuret Pep Impressions: Chest X-Ray 01/30/20 23:24 IMPRESSION: Unchanged right basilar presumed pneumonia. Chest/Abdomen CTA 01/31/20 01:48 IMPRESSION: No aortic dissection or aneurysm. No pulmonary embolus. No pneumonia. Assessment and Plan - Diagnosis (1) Chest pain Qualifiers: Chest pain type: other chest pain Qualified Code(s): R07.89 - Other chest pain; R07.8 - Other chest pain Is this a current diagnosis for this admission?: Yes Plan: CT chest: No aortic dissection or aneurysm. No pulmonary embolism. No pneumonia. EKG without acute ST elevation, old inferior infarct noted Serum troponin negative Echocardiogram completed: LVEF 60% with grade 1 diastolic dysfunction, trace MR, trace to mild TR, mild pulmonary hypertension Stress test was unable to be completed today 2/2 patient drinking caffeinated beverage this a.m. N.P.O. after midnight for stress test in a.m. (2) Hypertension Qualifiers: Hypertension type: essential hypertension Qualified Code(s): I10 - Essential (primary) hypertension Is this a current diagnosis for this admission?: Yes Plan: Adequate BP control Continue amlodipine 10 mg p.o. daily Continue metoprolol succinate 25 mg p.o. daily (3) Dyslipidemia Is this a current diagnosis for this admission?: Yes Plan: Continue atorvastatin 10 mg p.o. daily (4) COPD (chronic obstructive pulmonary disease) Qualifiers: COPD type: chronic bronchitis Chronic bronchitis type: simple Qualified Code(s): J41.0 - Simple chronic bronchitis Is this a current diagnosis for this admission?: Yes Plan: Patient does not appear to have COPD exacerbation Continue fluticasone/vilanterol 200/25 mcg daily (5) Leucocytosis Is this a current diagnosis for this admission?: Yes Plan: Patient afebrile and nontoxic in appearance WBC initially trended down but slightly up today Blood cultures from 01/31/20 NG at 24 hours Patient received dose of azithromycin, cefepime, and vancomycin in the ED. This is since been discontinued Continue to monitor off antibiotics (6) Bipolar 1 disorder Is this a current diagnosis for this admission?: Yes Plan: Continue buspirone 20 mg p.o. every 8 hours Continue duloxetine 30 mg p.o. twice daily Continue lamotrigine 200 mg p.o. every morning Continue lamotrigine 150 mg p.o. nightly Continue lorazepam 1 mg p.o. daily Continue peroxetine 20 mg p.o. daily (7) Hyponatremia Is this a current diagnosis for this admission?: Yes Plan: Hyponatremia is mild Patient is asymptomatic No treatment indicated Monitor (8) GERD (gastroesophageal reflux disease) Is this a current diagnosis for this admission?: Yes Plan: Continue pantoprazole 40 mg p.o. daily - Time Time Spent with patient: 25-34 minutes Medications reviewed and adjusted accordingly: Yes Anticipated Discharge Disposition: Home, Self Care Anticipated Discharge Timeframe: within 36 hours
[2020-02-01] MEDS ORDERED: HYDROMORPHONE HCL INJ/PF 2 MG/ML AMPULE IV PRN (20:35)
[2020-02-01] MEDS: AMITRIPTYLINE HCL 75 MG TABLET PO PRN (21:07)
[2020-02-01] MEDS: ATORVASTATIN CALCIUM 10 MG TABLET PO SCH (21:09)
[2020-02-01] MEDS: ONDANSETRON HCL INJ/PF 4 MG/2 ML SDV IV PRN (22:46)
[2020-02-02 05:47] LABS: ABSOLUTE BASOPHILS # (AUTO) 0.1 10^3/uL (0.0-0.2); ABSOLUTE EOSINOPHILS # (AUTO) 0.1 10^3/uL (0.0-0.6); ABSOLUTE LYMPHOCYTES (AUTO) 4.2 10^3/uL (0.5-4.7); ABSOLUTE MONOCYTES (AUTO) 0.7 10^3/uL (0.1-1.4); ABSOLUTE NEUT (AUTO) 5.9 10^3/uL (1.7-8.2); BASOPHILS % (AUTO) 0.7 % (0-2); EOSINOPHILS % (AUTO) 1.1 % (0-6); HEMOGLOBIN 13.9 g/dL (12.0-15.5); LYMPHOCYTES % (AUTO) 38.2 % (13-45); MEAN CORPUSCULAR HEMOGLOBIN 30.5 pg (27.0-33.4); MEAN CORPUSCULAR HGB CONC 33.9 g/dL (32.0-36.0); MEAN CORPUSCULAR VOLUME 90 fl (80-97); MONOCYTES % (AUTO) 6.3 % (3-13); PLATELET COUNT 201 10^3/uL (150-450); RED BLOOD COUNT 4.56 10^6/uL (3.72-5.28); RED CELL DISTRIBUTION WIDTH 13.7 % (11.5-14.0); SEGMENTED NEUTROPHILS % (AUTO) 53.7 % (42-78); TOTAL CELLS COUNTED % (AUTO) 100 %
[2020-02-02] MEDS: HEPARIN SOD (PORCINE) 5,000 UNIT/ML 1 ML VIAL SUBCUT SCH ×2 (05:56→13:04)
[2020-02-02] MEDS: BUSPIRONE HCL 10 MG TABLET PO SCH ×2 (05:56→13:04)
[2020-02-02 06:28] LABS: ANION GAP 5 (5-19); BLOOD UREA NITROGEN 21 mg/dL (7-20); CALCIUM 8.9 mg/dL (8.4-10.2); CARBON DIOXIDE 28 mmol/L (22-30); CHLORIDE 103 mmol/L (98-107); GLUCOSE 89 mg/dL (75-110); POTASSIUM 4.3 mmol/L (3.6-5.0)
[2020-02-02] MEDS ORDERED: PANTOPRAZOLE SODIUM 40 MG TABLET.DR PO SCH (08:00)
[2020-02-02] MEDS: DULOXETINE HCL 30 MG CAPSULE.DR PO SCH ×2 (10:35→17:27)
[2020-02-02] MEDS: METOPROLOL SUCCINATE 25 MG TAB.SR.24H PO SCH (10:35)
[2020-02-02] MEDS: AMLODIPINE BESYLATE 10 MG TABLET PO SCH (10:35)
[2020-02-02] MEDS: PAROXETINE HCL 20 MG TABLET PO SCH (10:35)
[2020-02-02] MEDS: LAMOTRIGINE 100 MG TABLET PO SCH (10:35)
[2020-02-02] MEDS: LORAZEPAM 1 MG TABLET PO SCH (10:35)
[2020-02-02] MEDS: ONDANSETRON HCL INJ/PF 4 MG/2 ML SDV IV PRN ×2 (10:35→17:27)
[2020-02-02] MEDS: METHOCARBAMOL 750 MG TABLET PO SCH ×3 (10:36→17:27)
[2020-02-02] MEDS: FLUTICASONE/VILANTEROL 200-25 MCG/DOSE IH SCH (10:37)
[2020-02-02] MEDS: OXYCODONE HCL IR 5 MG TABLET PO PRN (13:04)
[2020-02-02] MEDS ORDERED: REGADENOSON INJ 0.4 MG/5 ML DISP.SYRIN IV ONE (14:45)
[2020-02-02] MEDS ORDERED: OXYCODONE HCL IR 5 MG TABLET PO ONE (17:00)
--- NOTE | 2020-02-02 17:27 | RADIOLOGY REPORT (SQ) ---
EXAM DESCRIPTION: CHEST SINGLE VIEW IMAGES COMPLETED DATE/TIME: 02/02/2020 5:12 pm REASON FOR STUDY: Rule out pneumonia COMPARISON: 01/30/2020 EXAM PARAMETERS: NUMBER OF VIEWS: One view. TECHNIQUE: Single frontal radiographic view of the chest acquired. RADIATION DOSE: NA LIMITATIONS: None. FINDINGS: LUNGS AND PLEURA: No opacities, masses or pneumothorax. No pleural effusion. MEDIASTINUM AND HILAR STRUCTURES: No masses. Contour normal. HEART AND VASCULAR STRUCTURES: Heart normal in size. Normal vasculature. BONES: No acute findings. HARDWARE: None in the chest. OTHER: No other significant finding. IMPRESSION: NO ACUTE RADIOGRAPHIC FINDING IN THE CHEST. TECHNICAL DOCUMENTATION: JOB ID: [id number] [employer]- All Rights Reserved Reading location - IP/workstation name: [email or web address]
[2020-02-02 18:16] VITALS: BP 124/78
--- NOTE | 2020-02-02 20:34 | PDOC DISCHARGE SUMMARY ---
Impression - Admit/DC Date/PCP Admission Date/Primary Care Provider: 01/31/20 03:19 SADIE FARR MD Discharge Date: 02/02/20 - Discharge Diagnosis (1) Chest pain Is this a current diagnosis for this admission?: Yes (2) Hypertension Is this a current diagnosis for this admission?: Yes (3) Dyslipidemia Is this a current diagnosis for this admission?: Yes (4) COPD (chronic obstructive pulmonary disease) Is this a current diagnosis for this admission?: Yes (5) Leucocytosis Is this a current diagnosis for this admission?: Yes (6) Bipolar 1 disorder Is this a current diagnosis for this admission?: Yes (7) Hyponatremia Is this a current diagnosis for this admission?: Yes (8) GERD (gastroesophageal reflux disease) Is this a current diagnosis for this admission?: Yes - Additional Information Resuscitation Status: Full Code Discharge Diet: Cardiac Discharge Activity: Activity As Tolerated Referrals: SADIE FARR MD [Primary Care Provider] - 02/13/20 11:15 am (Left a message at 1243 on02/02/2020. .) Home Medications: Amitriptyline HCl [Elavil 75 mg Tablet] 75 mg PO HSP PRN 01/31/20 Amlodipine Besylate [Norvasc 10 mg Tablet] 10 mg PO DAILY 01/31/20 Budesonide/Formoterol Fumarate [Symbicort HFA 160-4.5 mcg Inhaler 6 gm] 2 puff IH Q12 01/31/20 Buspirone HCl [Buspar 10 mg Tablet] 20 mg PO Q8 01/31/20 Duloxetine HCl [Cymbalta 30 mg Capsule.dr] 30 mg PO BID 01/31/20 Hydroxyzine Pamoate [Vistaril 50 mg Capsule] 100 mg PO HSP PRN 01/31/20 Lamotrigine [Lamictal] 150 mg PO QHS 01/31/20 Lamotrigine [Lamictal] 200 mg PO QAM 01/31/20 Linaclotide [Linzess 145 Mcg Capsule] 145 mcg PO Q6AM 01/31/20 Lorazepam [Ativan 1 mg Tablet] 1 mg PO DAILY 01/31/20 Methocarbamol [Robaxin 750 mg Tablet] 750 mg PO QID 01/31/20 Metoprolol Succinate [Toprol Xl 25 mg Tab.sr] 25 mg PO DAILY 01/31/20 Pantoprazole Sodium [Protonix [address] Tablet] 40 mg PO DAILY 01/31/20 Paroxetine HCl [Paxil 20 mg Tablet] 20 mg PO DAILY 01/31/20 Quetiapine Fumarate [Seroquel 25 mg Tablet] 150 mg PO QHS 01/31/20 Rosuvastatin Calcium 5 mg PO QHS 01/31/20 Tramadol HCl [Ultram 50 mg Tablet] 50 mg PO Q8 01/31/20 Acetaminophen [Tylenol 325 mg Tablet] 650 mg PO Q4HP PRN tablet 02/02/20 History of Present Illiness History of Present Illness: JEET FIGUEROA is a 54 year old female with PMH significant for recent pneumonia, COPD, HTN, dyslipidemia, GERD, obesity, bipolar disorder, and fibromyalgia who presented to the ED after she states she "fell out" at home. She checked her BP and found that her systolic blood pressure was in the 90s. Additionally, she complained of midsternal chest pain. In the ED and EKG was completed which revealed sinus rhythm with a nonspecific IVCD and some ST depression. Serial troponins were initiated which remained negative. Chest x- ray revealed right basilar infiltrate which was presumed to be pneumonia. Subsequently a CT of the chest was completed which did not reveal any aortic dissection or aneurysm. There were also no PE identified and no pneumonia. Hospital Course Hospital Course: The patient was admitted to the COVID floor pending results of a COVID test which was administered in the ED. Serial troponins remain negative throughout the hospitalization. Her SARS-CoV-2 ultimately came back negative. A cardiology consult was requested and an echocardiogram was completed. Her echo revealed normal LV function with an LVEF of 60%. The RV was not well visualized. Additionally, there was trace MR, trace to mild TR, and mild pulmonary hypertension by echo. The patient was evaluated by cardiology who completed a stress test which revealed no ischemia and no scar/FL. She was cleared by cardiology for discharge. Physical Exam Vital Signs: Temp Pulse Resp BP Pulse Ox 98.2 F 72 22 H 121/71 94 02/02/20 17:30 02/02/20 17:30 02/02/20 17:30 02/02/20 17:30 02/02/20 17:30 Intake & Output 02/01/20 02/02/20 02/03/20 06:59 06:59 06:59 Intake Total 1798 1441 111 Balance 1798 1441 111 Weight 123.7 kg 123.7 kg General appearance: PRESENT: no acute distress, morbidly obese Head exam: PRESENT: atraumatic, normocephalic Eye exam: PRESENT: conjunctiva pink Mouth exam: PRESENT: moist, tongue midline Neck exam: ABSENT: JVD Respiratory exam: PRESENT: clear to auscultation deonna, decreased breath sounds - There entry diminished at bases bilaterally, prolonged expiratory phas, symmetrical, unlabored. ABSENT: accessory muscle use Cardiovascular exam: PRESENT: RRR, +S1, +S2 Pulses: PRESENT: normal carotid pulses, normal radial pulses Vascular exam: PRESENT: normal capillary refill GI/Abdominal exam: PRESENT: normal bowel sounds, soft. ABSENT: distended, tenderness Rectal exam: PRESENT: deferred Extremities exam: ABSENT: calf tenderness, pedal edema Musculoskeletal exam: PRESENT: ambulatory Neurological exam: PRESENT: alert, awake, oriented to person, oriented to place, oriented to time, oriented to situation, CN II-XII grossly intact. ABSENT: motor sensory deficit Psychiatric exam: PRESENT: anxious. ABSENT: agitated Skin exam: PRESENT: dry, normal color, warm Results Laboratory Results: WBC 11.0 10^3/uL (4.0-10.5) H 02/02/20 05:00 RBC 4.56 10^6/uL (3.72-5.28) 02/02/20 05:00 Hgb 13.9 g/dL (12.0-15.5) 02/02/20 05:00 Hct 41.0 % (36.0-47.0) 02/02/20 05:00 MCV 90 fl (80-97) 02/02/20 05:00 MCH 30.5 pg (27.0-33.4) 02/02/20 05:00 MCHC 33.9 g/dL (32.0-36.0) 02/02/20 05:00 RDW 13.7 % (11.5-14.0) 02/02/20 05:00 Plt Count 201 10^3/uL (150-450) 02/02/20 05:00 Lymph % (Auto) 38.2 % (13-45) 02/02/20 05:00 [place] % (Auto) 6.3 % (3-13) 02/02/20 05:00 Eos % (Auto) 1.1 % (0-6) 02/02/20 05:00 Baso % (Auto) 0.7 % (0-2) 02/02/20 05:00 Absolute Neuts (auto) 5.9 10^3/uL (1.7-8.2) 02/02/20 05:00 Absolute Lymphs (auto) 4.2 10^3/uL (0.5-4.7) 02/02/20 05:00 Absolute Monos (auto) 0.7 10^3/uL (0.1-1.4) 02/02/20 05:00 Absolute Eos (auto) 0.1 10^3/uL (0.0-0.6) 02/02/20 05:00 Absolute Basos (auto) 0.1 10^3/uL (0.0-0.2) 02/02/20 05:00 Total Counted 100 01/31/20 00:26 Seg Neutrophils % 53.7 % (42-78) 02/02/20 05:00 Seg Neuts % (Manual) 70 % (42-78) 01/31/20 00:26 Lymphocytes % (Manual) 23 % (13-45) 01/31/20 00:26 Monocytes % (Manual) 7 % (3-13) 01/31/20 00:26 Eosinophils % (Manual) 0 % (0-6) 01/31/20 00:26 Basophils % (Manual) 0 % (0-2) 01/31/20 00:26 Abs Neuts (Manual) 11.8 10^3/uL (1.7-8.2) H 01/31/20 00:26 Abs Lymphs (Manual) 3.9 10^3/uL (0.5-4.7) 01/31/20 00:26 Abs Monocytes (Manual) 1.2 10^3/uL (0.1-1.4) 01/31/20 00:26 Absolute Eos (Manual) 0.0 10^3/uL (0.0-0.6) 01/31/20 00:26 Abs Basophils (Manual) 0.0 10^3/uL (0.0-0.2) 01/31/20 00:26 Toxic Granulation 1+ 01/31/20 00:26 Platelet Comment ADEQUATE 01/31/20 00:26 Poikilocytosis SLIGHT 01/31/20 00:26 Ovalocytes SLIGHT 01/31/20 00:26 Schistocytes SLIGHT 01/31/20 00:26 D-Dimer 0.45 ug/mL (0.00-0.50) 01/31/20 00:26 VBG pH 7.39 (7.30-7.42) 01/31/20 01:27 VBG pCO2 37.5 mmHg (35-63) 01/31/20 01:27 VBG HCO3 22.1 mmol/L (20-32) 01/31/20 01:27 VBG Base Excess -2.5 mmol/L 01/31/20 01:27 Sodium 136.0 mmol/L (137-145) L 02/02/20 05:00 Potassium 4.3 mmol/L (3.6-5.0) 02/02/20 05:00 Chloride 103 mmol/L (98-107) 02/02/20 05:00 Carbon Dioxide 28 mmol/L (22-30) 02/02/20 05:00 Anion Gap 5 (5-19) 02/02/20 05:00 BUN 21 mg/dL (7-20) H 02/02/20 05:00 Creatinine 1.01 mg/dL (0.52-1.25) 02/02/20 05:00 Est GFR ( Amer) > 60 (>60) 02/02/20 05:00 Est GFR (MDRD) Non-Af 57 (>60) L 02/02/20 05:00 Glucose 89 mg/dL (75-110) 02/02/20 05:00 Lactic Acid 1.7 mmol/L (0.7-2.1) 01/31/20 00:26 Calcium 8.9 mg/dL (8.4-10.2) 02/02/20 05:00 Phosphorus 4.0 mg/dL (2.5-4.5) 01/31/20 00:26 Magnesium 2.3 mg/dL (1.6-2.3) 01/31/20 00:26 Total Bilirubin 0.3 mg/dL (0.2-1.3) 01/31/20 00:26 Direct Bilirubin 0.1 mg/dL (0.0-0.4) 01/31/20 00:26 Neonat Total Bilirubin Not Reportable 01/31/20 00:26 Neonat Direct Bilirubin Not Reportable 01/31/20 00:26 Neonat Indirect Bili Not Reportable 01/31/20 00:26 AST 21 U/L (14-36) 01/31/20 00:26 ALT 30 U/L (<35) 01/31/20 00:26 Alkaline Phosphatase 89 U/L (38-126) 01/31/20 00:26 Creatine Kinase 55 U/L (30-135) 01/31/20 00:26 Troponin I < 0.012 ng/mL 02/02/20 05:00 NT-Pro-B Natriuret Pep 100 pg/mL (<125) 01/31/20 00:26 Total Protein 6.2 g/dL (6.3-8.2) L 01/31/20 00:26 Albumin 3.9 g/dL (3.5-5.0) 01/31/20 00:26 Lipase 134.2 U/L (23-300) 01/31/20 00:26 Urine Color YELLOW 01/31/20 01:43 Urine Appearance SLIGHTLY-CLOUDY 01/31/20 01:43 Urine pH 5.0 (5.0-9.0) 01/31/20 01:43 Ur Specific [place] 1.024 01/31/20 01:43 Urine Protein NEGATIVE mg/dL (NEGATIVE) 01/31/20 01:43 Urine Glucose (UA) NEGATIVE mg/dL (NEGATIVE) 01/31/20 01:43 Urine Ketones NEGATIVE mg/dL (NEGATIVE) 01/31/20 01:43 Urine Blood SMALL (NEGATIVE) H 01/31/20 01:43 Urine Nitrite (Reflex) NEGATIVE (NEGATIVE) 01/31/20 01:43 Urine Bilirubin NEGATIVE (NEGATIVE) 01/31/20 01:43 Urine Urobilinogen NEGATIVE mg/dL (<2.0) 01/31/20 01:43 Leukocyte Esterase Rfl LARGE (NEGATIVE) H 01/31/20 01:43 Urine RBC (Auto) 20 /HPF 01/31/20 01:43 Urine Bacteria (Auto) TRACE /HPF 01/31/20 01:43 Urine WBC (Reflex) 114 /HPF 01/31/20 01:43 Squamous Epi Cells Auto 4 /HPF 01/31/20 01:43 Urine Mucus (Auto) RARE /LPF 01/31/20 01:43 Urine Ascorbic Acid NEGATIVE (NEGATIVE) 01/31/20 01:43 COVID-19 Source NASOPHARYNGEAL 01/31/20 00:26 COVID-19 (FELI) NOT DETECTED 01/31/20 00:26 01/31/20 01/31/20 01/31/20 00:26 06:30 12:45 Troponin I 0.017 0.014 < 0.012 NT-Pro-B Natriuret Pep 100 02/02/20 05:00 Troponin I < 0.012 NT-Pro-B Natriuret Pep Impressions: Chest X-Ray 01/30/20 23:24 IMPRESSION: Unchanged right basilar presumed pneumonia. Chest/Abdomen CTA 01/31/20 01:48 IMPRESSION: No aortic dissection or aneurysm. No pulmonary embolus. No pneumonia. Chest X-Ray 02/02/20 00:00 IMPRESSION: NO ACUTE RADIOGRAPHIC FINDING IN THE CHEST. Plan Health Concerns: Patient will need to follow-up with her PCP within 7 days of discharge Time Spent: Greater than 30 Minutes Stroke Is this a Stroke Patient?: No Acute Heart Failure - Is this a Heart Failure Patient?: No
== END 2020-02-02 18:44 | disposition home or self-care (01) ==
LOC: ER 22:02 → EH 01-31 03:19 → 3N 01-31 05:35
PROVIDERS: ADMIT Family Medicine; ATTEND Nurse Practitioner
DX: R07.89 Other chest pain (principal); I10 Essential (primary) hypertension; E78.5 Hyperlipidemia, unspecified; J44.9 Chronic obstructive pulmonary disease, unspecified; D72.829 Elevated white blood cell count, unspecified; F31.9 Bipolar disorder, unspecified; Z68.42 Body mass index [BMI] 45.0-49.9, adult; E87.1 Hypo-osmolality and hyponatremia; K21.9 Gastro-esophageal reflux disease without esophagitis; Z20.828 Contact with and (suspected) exposure to other viral communicable diseases; Z79.899 Other long term (current) drug therapy; M79.7 Fibromyalgia; I34.0 Nonrheumatic mitral (valve) insufficiency; I36.1 Nonrheumatic tricuspid (valve) insufficiency; I27.20 Pulmonary hypertension, unspecified; E66.01 Morbid (severe) obesity due to excess calories; F17.200 Nicotine dependence, unspecified, uncomplicated; M19.90 Unspecified osteoarthritis, unspecified site; Z96.653 Presence of artificial knee joint, bilateral; Z98.1 Arthrodesis status; Z88.2 Allergy status to sulfonamides; Z91.041 Radiographic dye allergy status; Z91.040 Latex allergy status; Z88.6 Allergy status to analgesic agent
CPT/HCPCS: 93005 ×4; 96376; 99285; 96361; 96375; 96365; 96366; 96367; 36415 ×3; 87040; 82550; 83605; 83690; 83735; 84100; 85025 ×2; 85027; 80048 ×2; 80053; 81001; 84484 ×2; 85379; 82803; 83880; 93306; 93017; 71045 ×2; 78452; 71275; 93010 ×3; U0003; A9500; J2785; A9270 ×35; J1644 ×3; J1200; J2930; J1885; J1170; J2060; J2405 ×3; J7030; J3370; J0456; S0028; J0692; Q9969; J3490; C9803; 87635

== ENCOUNTER 2020-02-13 13:57 | Emergency (ER) | payer MEDICARE ==
[2020-02-13] MEDS ORDERED: LIDOCAINE 2% VISCOUS SOLN 15 ML UDCUP PO ONE (17:02)
[2020-02-13] MEDS ORDERED: MAG HYDROX/AL HYDROX/SIMETH SUSP 30 ML UDCUP PO ONE (17:02)
[2020-02-13] MEDS ORDERED: ONDANSETRON 4 MG TAB.RAPDIS PO ONE (17:03)
--- NOTE | 2020-02-13 17:53 | ER Document Report ---
Entered by DEVON ROBLES SCRIBE 02/13/20 1180 Acting as scribe for:SMITA BROOKS MD ED General - General Chief Complaint: Nausea/Vomiting Stated Complaint: FEVER, WEAKNESS, ABDOMINAL PAIN, BLOOD IN STOOL Time Seen by Provider: 02/13/20 16:45 Mode of Arrival: Ambulatory Information source: Patient Notes: This 54 year old female patient presents to the emergency department today with complaints of a three day history of fevers up too 100.5 with associated nausea and GERD related pain. Patient reports about a 10 day history of noticing "maroon colored blood mixed with stool". Patient states that the "nausea and pain is awful". She has an endoscopy scheduled with Dr. Pulido sometime soon. TRAVEL OUTSIDE OF THE [place] IN LAST 30 DAYS: No - Related Data Allergies/Adverse Reactions: Iodinated Contrast Media [IV Dye, Iodine Containing] Allergy (Verified 01/22/20 07:53) latex [Latex] Allergy (Verified 01/22/20 07:53) morphine Allergy (Verified 01/22/20 07:53) Sulfa (Sulfonamide Antibiotics) Allergy (Verified 01/22/20 07:53) Past Medical History - General Information source: Patient - Social History Smoking Status: Current Every Day Smoker Cigarette use (# per day): Yes Frequency of alcohol use: None Drug Abuse: None Lives with: Family Family History: Reviewed & Not Pertinent - Past Medical History Cardiac Medical History: Reports: Hx Hypercholesterolemia, Hx Hypertension Pulmonary Medical History: Reports: Hx Asthma, Hx COPD GI Medical History: Reports: Hx Gastroesophageal Reflux Disease Musculoskeletal Medical History: Reports Hx Arthritis, Reports Hx Fibromyalgia Psychiatric Medical History: Reports: Hx Anxiety, Hx Depression Traumatic Medical History: Reports: Hx Fractures Past Surgical History: Reports: Hx Section, Hx Cholecystectomy, Hx Hysterectomy, Hx Orthopedic Surgery - left and right knee replacement, spinal fusion lower - Immunizations Hx Diphtheria, Pertussis, Tetanus Vaccination: No Hx Pneumococcal Vaccination: 06/29/09 Review of Systems - Review of Systems Constitutional: See HPI, Fever EENT: No symptoms reported Cardiovascular: No symptoms reported Respiratory: No symptoms reported Gastrointestinal: See HPI, Abdominal pain, Nausea, Rectal bleeding. denies: Vomiting Genitourinary: No symptoms reported Female Genitourinary: No symptoms reported Musculoskeletal: No symptoms reported Skin: No symptoms reported Hematologic/Lymphatic: No symptoms reported Neurological/Psychological: No symptoms reported -: Yes All other systems reviewed and negative Physical Exam - Vital signs Vitals: Temp Pulse Resp BP Pulse Ox 98.6 F 93 18 143/89 H 96 02/13/20 16:57 02/13/20 16:57 02/13/20 16:57 02/13/20 16:57 02/13/20 16:57 - Notes Notes: Physical Exam: General: Alert, appears well. HEENT: Normocephalic. Atraumatic. PERRL. Extraocular movements intact. Oropharynx clear. Neck: Supple. Non-tender. Respiratory: No respiratory distress. Coarse breath sounds bilaterally. Sternal tenderness with palpation. Cardiovascular: Regular rate and rhythm. Abdominal: Morbidly obese. Epigastric tenderness to palpation. No distension. Normal Bowel Sounds. Back: No gross abnormalities. Extremities: Moves all four extremities. Upper extremities: Normal inspection. Normal ROM. Lower extremities: Normal inspection. No edema. Normal ROM. Neurological: Normal cognition. AAOx4. Normal speech. Psychological: Normal affect. Normal Mood. Skin: Warm. Dry. Normal color. Course - Re-evaluation Re-evalutation: 02/13/20 19:03 I reviewed the findings with the patient. She seemed disappointed to learn that the stool was negative for blood, and that her white blood cell count was not elevated suggesting an infectious process. She reluctantly admitted that her nausea was a little bit better. She will be discharged home with prescription for Zofran and instructions to follow-up with her primary care provider and her electronics engineering technician. The patient was evaluated during the global COVID-19 pandemic and that diagnosis was suspected/considered upon their initial presentation. Their evaluation, treatment and testing was consistent with current guidelines for patients who present with complaints or symptoms that may be related to COVID-19. - Vital Signs Vital signs: Temp Pulse Resp BP Pulse Ox 98.6 F 93 18 143/89 H 96 02/13/20 16:57 02/13/20 16:57 02/13/20 16:57 02/13/20 16:57 02/13/20 16:57 - Laboratory Result Diagrams: 02/13/20 17:40 02/13/20 17:40 Laboratory results interpreted by me: 02/13/20 02/13/20 17:40 17:40 Alkaline Phosphatase 131 H Urine Protein 30 H Discharge - Discharge Clinical Impression: Weak, Nausea, Encounter for laboratory testing for COVID-19 virus Fever Qualifiers: Fever type: unspecified Qualified Code(s): R50.9 - Fever, unspecified Abdominal pain Qualifiers: Abdominal location: generalized Qualified Code(s): R10.84 - Generalized abdominal pain Condition: Stable Disposition: HOME, SELF-CARE Instructions: COVID-19 Guidance for Persons Under Investigation Additional Instructions: Viral Syndrome The physician has diagnosed a viral infection. Viruses not only cause "colds," but can cause many different symptoms including generalized aching, fever, headache, cough, diarrhea, nausea, vomiting, and fatigue. The treatment, for the most part, is simply relief of symptoms. This means that antibiotics are usually not given. Rest, fluids, pain medications and, occasionally, medication for the specific symptoms that are most bothersome will be prescribed. Use good handwashing to avoid passing the virus to others. Shared toys should be cleaned with disinfectant. Clean the toilets, sinks, and counter surfaces in bathrooms. Launder clothing in hot water. Contact the physician if you develop any new or unusual symptoms such as severe headache, stiff neck, high fever, chest pain, productive cough, or shortness of breath. You should be rechecked if you don't see marked improvement within seven to 10 days. Your symptoms of fever, weak, nausea, abdominal pain seems most consistent with a viral type illness. Your blood work was unremarkable, did not show any signs of infection or bleeding. The test of your stool was negative for blood. You should take the Zofran as prescribed for nausea if needed. Drink small sips cool clear liquids until your nausea is gone. Follow-up with your primary care provider and your electronics engineering technician for further evaluation of your symptoms if needed. RETURN TO THE EMERGENCY ROOM IF ANY NEW OR WORSENING SYMPTOMS. Prescriptions: Ondansetron [Zofran Odt 4 mg Tablet] 1 - 2 tab PO Q4H PRN #10 tab.rapdis PRN Reason: I personally performed the services described in the documentation, reviewed and edited the documentation which was dictated to the scribe in my presence, and it accurately records my words and actions.
[2020-02-13 18:02] LABS: ABSOLUTE BASOPHILS # (AUTO) 0.1 10^3/uL (0.0-0.2); ABSOLUTE EOSINOPHILS # (AUTO) 0.2 10^3/uL (0.0-0.6); ABSOLUTE LYMPHOCYTES (AUTO) 2.5 10^3/uL (0.5-4.7); ABSOLUTE MONOCYTES (AUTO) 0.5 10^3/uL (0.1-1.4); ABSOLUTE NEUT (AUTO) 5.2 10^3/uL (1.7-8.2); BASOPHILS % (AUTO) 1.1 % (0-2); EOSINOPHILS % (AUTO) 2.5 % (0-6); HEMATOCRIT 40.3 % (36.0-47.0); HEMOGLOBIN 13.9 g/dL (12.0-15.5); LYMPHOCYTES % (AUTO) 29.2 % (13-45); MEAN CORPUSCULAR HEMOGLOBIN 30.9 pg (27.0-33.4); MEAN CORPUSCULAR HGB CONC 34.4 g/dL (32.0-36.0); MEAN CORPUSCULAR VOLUME 90 fl (80-97); MONOCYTES % (AUTO) 5.9 % (3-13); PLATELET COUNT 298 10^3/uL (150-450); RED CELL DISTRIBUTION WIDTH 13.8 % (11.5-14.0); SEGMENTED NEUTROPHILS % (AUTO) 61.3 % (42-78); TOTAL CELLS COUNTED % (AUTO) 100 %; WHITE BLOOD COUNT 8.4 10^3/uL (4.0-10.5)
[2020-02-13 18:18] LABS: ALBUMIN 4.6 g/dL (3.5-5.0); ALKALINE PHOSPHATASE 131 U/L (38-126); ANION GAP 10 (5-19); ASPARTATE AMINO TRANSFERASE 24 U/L (14-36); BILIRUBIN,TOTAL 0.5 mg/dL (0.2-1.3); BLOOD UREA NITROGEN 17 mg/dL (7-20); CARBON DIOXIDE 26 mmol/L (22-30); CHLORIDE 107 mmol/L (98-107); CREATINE KINASE 82 U/L (30-135); GLUCOSE 102 mg/dL (75-110); POTASSIUM 4.4 mmol/L (3.6-5.0); TOTAL PROTEIN 7.4 g/dL (6.3-8.2)
[2020-02-13 18:24] LABS: APPEARANCE,URINE SLIGHTLY-CLOUDY; BILIRUBIN,URINE NEGATIVE (NEGATIVE); COLOR,URINE YELLOW; GLUCOSE, URINE NEGATIVE (NEGATIVE); KETONES,URINE NEGATIVE (NEGATIVE); LEUKOCYTE ESTERASE,URINE NEGATIVE (NEGATIVE); NITRITE,URINE NEGATIVE (NEGATIVE); PROTEIN,URINE 30 mg/dL (NEGATIVE); URINE SPECIFIC GRAVITY 1.029; UROBILINOGEN,URINE NEGATIVE mg/dL (<2.0)
[2020-02-13 19:37] VITALS: BP 120/78
== END 2020-02-13 19:25 | disposition home or self-care (01) ==
LOC: ER 13:57
DX: R50.9 Fever, unspecified (principal); K21.9 Gastro-esophageal reflux disease without esophagitis; R10.84 Generalized abdominal pain; R53.1 Weakness; K62.5 Hemorrhage of anus and rectum; R11.0 Nausea; F17.210 Nicotine dependence, cigarettes, uncomplicated; I10 Essential (primary) hypertension; J44.9 Chronic obstructive pulmonary disease, unspecified; Z90.49 Acquired absence of other specified parts of digestive tract; Z90.710 Acquired absence of both cervix and uterus; Z88.6 Allergy status to analgesic agent; Z88.5 Allergy status to narcotic agent; Z88.2 Allergy status to sulfonamides; Z91.041 Radiographic dye allergy status; Z91.040 Latex allergy status; Z20.828 Contact with and (suspected) exposure to other viral communicable diseases
CPT/HCPCS: 99283; 36415; 82550; 85025; 82270; 80053; 81001; 84484; U0003; A9270 ×2; J3490; C9803; 87635; S0119

== ENCOUNTER 2020-02-14 14:56 | Observation (INO) | payer MEDICARE ==
[2020-02-14] MEDS ORDERED: ASPIRIN 81 MG TABLET, CHEWABLE PO ONE (17:03)
[2020-02-14] MEDS ORDERED: LIDOCAINE 2% VISCOUS SOLN 15 ML UDCUP PO ONE (17:06)
[2020-02-14] MEDS ORDERED: MAG HYDROX/AL HYDROX/SIMETH SUSP 30 ML UDCUP PO ONE (17:06)
--- NOTE | 2020-02-14 17:07 | ER Document Report ---
ED Respiratory Problem - General Chief Complaint: Shortness Of Breath Stated Complaint: SHORTNESS OF BREATH Time Seen by Provider: 02/14/20 16:35 Information source: Patient Notes: Patient presents with a 4-day history of fever chest pain and cough. Patient states cough is occasionally productive. Patient complains of generalized weakness. Patient reports nausea without any vomiting or diarrhea. Patient was seen here yesterday and was tested for coronavirus. Patient complains of discomfort to the esophagus that goes down into her chest. TRAVEL OUTSIDE OF THE [place] IN LAST 30 DAYS: No - HPI Patient complains to provider of: Chest pain, Cough, Short of breath Onset: Other - 4 days Duration: Worse/persistent Quality of pain: Pressure Pain Level: 4 Context: Hx asthma, Hx COPD, Smoker - Quit 1 week ago Associated symptoms: Chest pain/discomfort, Cough, Fever, Short of breath. denies: Wheezing Similar symptoms previously: Yes Recently seen / treated by doctor: Yes - Related Data Allergies/Adverse Reactions: Iodinated Contrast Media [IV Dye, Iodine Containing] Allergy (Verified 01/22/20 07:53) latex [Latex] Allergy (Verified 01/22/20 07:53) morphine Allergy (Verified 02/14/20 22:58) Sulfa (Sulfonamide Antibiotics) Allergy (Verified 01/22/20 07:53) Past Medical History - General Information source: Patient - Social History Smoking Status: Former Smoker - Quit 1 week ago Frequency of alcohol use: None Drug Abuse: None Occupation: None Lives with: Family Family History: Reviewed & Not Pertinent - Past Medical History Cardiac Medical History: Reports: Hx Hypercholesterolemia, Hx Hypertension Pulmonary Medical History: Reports: Hx Asthma, Hx COPD Renal/ Medical History: Denies: Hx Peritoneal Dialysis GI Medical History: Reports: Hx Gastroesophageal Reflux Disease Musculoskeletal Medical History: Reports Hx Arthritis, Reports Hx Fibromyalgia Psychiatric Medical History: Reports: Hx Anxiety, Hx Depression Traumatic Medical History: Reports: Hx Fractures Past Surgical History: Reports: Hx Section, Hx Cholecystectomy, Hx H ysterectomy, Hx Orthopedic Surgery - left and right knee replacement, spinal fusion lower - Immunizations Hx Diphtheria, Pertussis, Tetanus Vaccination: No Hx Pneumococcal Vaccination: 06/29/09 Review of Systems - Review of Systems Constitutional: Fever, Recent illness - PUI EENT: No symptoms reported Cardiovascular: Chest pain Respiratory: Cough, Short of breath Gastrointestinal: Nausea. denies: Abdominal pain, Diarrhea, Vomiting Genitourinary: No symptoms reported Female Genitourinary: No symptoms reported Musculoskeletal: No symptoms reported. denies: Back pain Skin: No symptoms reported Hematologic/Lymphatic: No symptoms reported Neurological/Psychological: No symptoms reported Physical Exam - Vital signs Vitals: Pulse Ox 97 02/14/20 19:00 - Notes Notes: PHYSICAL EXAMINATION: GENERAL: Well-appearing and in no acute distress. HEAD: Atraumatic, normocephalic. EYES: Pupils equal round and reactive to light, extraocular movements intact, sclera anicteric, conjunctiva are normal. ENT: nares patent, oropharynx clear without exudates. Moist mucous membranes. NECK: Normal range of motion, supple without lymphadenopathy LUNGS: Anterior chest wall tenderness with palpation, CTAB and equal. No wheezes rales or rhonchi. HEART: Regular rate and rhythm without murmurs ABDOMEN: Soft, no tenderness. Morbidly obese. No guarding, no rebound EXTREMITIES: Normal range of motion, no pitting edema. BACK: No midline tenderness, no step-off or deformity. NEUROLOGICAL: Cranial nerves grossly intact. Normal speech. Normal gait. PSYCH: Mildly anxious SKIN: Warm, Dry, normal turgor, no rashes or lesions noted Course - Re-evaluation Re-evalutation: 02/14/20 18:30 Patient reports that GI cocktail did help with her esophagus discomfort although she does not feel that it helped her chest tightness. 02/14/20 19:30 Patient reports that chest pain symptoms have resolved after pain medication was given. Patient denies any nausea or vomiting at this time. Patient with a positive troponin at this time. Consulted with Dr. Navarrete who recommends consultation with her uniform patrol police officer for likely admission at this time. 20:00 Patient updated regarding likely need for admission, patient is agreeable with this plan of care. Consulted with Dr. Nails regarding patient presentation and diagnostic evaluation. Patient without any significant change on EKG although does have an elevated troponin at this time. Patient had a normal stress test performed on 02/02/2020 without any ischemic findings. Patient also had an echocardiogram with an EF of 60%. Dr. Nails does not feel that patient requires transfer at this time for her elevated troponin with a recent negative stress test. He states that other factors could be causing the bump in her troponin at this time. 02/14/20 20:[address] England regarding patient's need for admission at this time. Dr. England does agree to accept patient to the telemetry unit at this time. 02/14/20 21:52 The patient was evaluated during the global Covid 19 pandemic, and that diagnosis was suspected/considered upon their initial presentation. Their ev aluation, treatment and testing was consistent with current guidelines for patients who present with complaints or symptoms that may be related to Covid 19. - Vital Signs Vital signs: Temp Pulse Resp BP Pulse Ox 98.4 F 73 17 125/71 96 02/14/20 22:45 02/14/20 22:45 02/14/20 22:45 02/14/20 22:45 02/14/20 22:45 - Laboratory Result Diagrams: 02/14/20 18:20 02/14/20 18:20 Laboratory results interpreted by me: 02/14/20 02/14/20 02/14/20 18:20 18:20 19:00 D-Dimer 0.71 H Magnesium 2.4 H Urine Protein 30 H Urine Bilirubin MODERATE H Ur Leukocyte Esterase LARGE H Labs- All tests 24 hr 02/14/20 02/14/20 02/14/20 18:20 18:20 18:20 WBC 6.9 RBC 4.42 Hgb 13.7 Hct 39.1 MCV 89 MCH 31.0 MCHC 35.0 RDW 13.5 Plt Count 294 Lymph % (Auto) 33.9 [place] % (Auto) 6.0 Eos % (Auto) 2.5 Baso % (Auto) 1.1 Absolute Neuts (auto) 3.9 Absolute Lymphs (auto) 2.3 Absolute Monos (auto) 0.4 Absolute Eos (auto) 0.2 Absolute Basos (auto) 0.1 Seg Neutrophils % 56.5 D-Dimer 0.71 H Sodium 139.8 Potassium 4.5 Chloride 107 Carbon Dioxide 25 Anion Gap 8 BUN 18 Creatinine 0.91 Est GFR ( Amer) > 60 Est GFR (MDRD) Non-Af > 60 Glucose 95 Calcium 9.3 Magnesium 2.4 H Total Bilirubin 0.6 Direct Bilirubin 0.0 Neonat Total Bilirubin Not Reportable Neonat Direct Bilirubin Not Reportable Neonat Indirect Bili Not Reportable AST 28 ALT 23 Alkaline Phosphatase 119 Creatine Kinase 110 Troponin I NT-Pro-B Natriuret Pep Total Protein 6.8 Albumin 4.3 Lipase 49.5 Urine Color Urine Appearance Urine pH Ur Specific [place] Urine Protein Urine Glucose (UA) Urine Ketones Urine Blood Urine Nitrite Urine Bilirubin Urine Urobilinogen Ur Leukocyte Esterase Urine WBC (Auto) Urine RBC (Auto) Urine Bacteria (Auto) Squamous Epi Cells Auto Urine Mucus (Auto) Urine Ascorbic Acid 02/14/20 02/14/20 18:20 19:00 WBC RBC Hgb Hct MCV MCH MCHC RDW Plt Count Lymph % (Auto) [place] % (Auto) Eos % (Auto) Baso % (Auto) Absolute Neuts (auto) Absolute Lymphs (auto) Absolute Monos (auto) Absolute Eos (auto) Absolute Basos (auto) Seg Neutrophils % D-Dimer Sodium Potassium Chloride Carbon Dioxide Anion Gap BUN Creatinine Est GFR ( Amer) Est GFR (MDRD) Non-Af Glucose Calcium Magnesium Total Bilirubin Direct Bilirubin Neonat Total Bilirubin Neonat Direct Bilirubin Neonat Indirect Bili AST ALT Alkaline Phosphatase Creatine Kinase Troponin I 0.141 NT-Pro-B Natriuret Pep 49 Total Protein Albumin Lipase Urine Color YELLOW Urine Appearance SLIGHTLY-CLOUDY Urine pH 5.0 Ur Specific [place] 1.034 Urine Protein 30 H Urine Glucose (UA) NEGATIVE Urine Ketones NEGATIVE Urine Blood NEGATIVE Urine Nitrite NEGATIVE Urine Bilirubin MODERATE H Urine Urobilinogen NEGATIVE Ur Leukocyte Esterase LARGE H Urine WBC (Auto) 13 Urine RBC (Auto) 1 Urine Bacteria (Auto) TRACE Squamous Epi Cells Auto 17 Urine Mucus (Auto) OCC Urine Ascorbic Acid NEGATIVE - Diagnostic Test Radiology reviewed: Reports reviewed Discharge - Discharge Clinical Impression: Person under investigation for COVID-19, SOB (shortness of breath), Elevated troponin Chest pain Qualifiers: Chest pain type: unspecified Qualified Code(s): R07.9 - Chest pain, unspecified Condition: Fair Disposition: ADMITTED INPATIENT Admitting Provider: Samanta (Hospitalist) Unit Admitted: Telemetry
--- NOTE | 2020-02-14 17:42 | RADIOLOGY REPORT (SQ) ---
EXAM DESCRIPTION: CHEST SINGLE VIEW IMAGES COMPLETED DATE/TIME: 02/14/2020 5:23 pm REASON FOR STUDY: cp COMPARISON: 02/02/2020 EXAM PARAMETERS: NUMBER OF VIEWS: One view. TECHNIQUE: Single frontal radiographic view of the chest acquired. RADIATION DOSE: NA LIMITATIONS: None. FINDINGS: LUNGS AND PLEURA: No opacities, masses or pneumothorax. No pleural effusion. MEDIASTINUM AND HILAR STRUCTURES: No masses. Contour normal. HEART AND VASCULAR STRUCTURES: Heart normal in size. Normal vasculature. BONES: No acute findings. HARDWARE: None in the chest. OTHER: No other significant finding. IMPRESSION: NO ACUTE RADIOGRAPHIC FINDING IN THE CHEST. TECHNICAL DOCUMENTATION: JOB ID: [id number] 2010 [email or web address]- All Rights Reserved Reading location - IP/workstation name: [email or web address]
[2020-02-14] MEDS ORDERED: FENTANYL CITRATE INJ/PF 100 MCG/2 ML AMPUL IV ONE (18:31)
[2020-02-14 18:47] LABS: ABSOLUTE BASOPHILS # (AUTO) 0.1 10^3/uL (0.0-0.2); ABSOLUTE EOSINOPHILS # (AUTO) 0.2 10^3/uL (0.0-0.6); ABSOLUTE LYMPHOCYTES (AUTO) 2.3 10^3/uL (0.5-4.7); ABSOLUTE MONOCYTES (AUTO) 0.4 10^3/uL (0.1-1.4); ABSOLUTE NEUT (AUTO) 3.9 10^3/uL (1.7-8.2); BASOPHILS % (AUTO) 1.1 % (0-2); EOSINOPHILS % (AUTO) 2.5 % (0-6); HEMATOCRIT 39.1 % (36.0-47.0); HEMOGLOBIN 13.7 g/dL (12.0-15.5); LYMPHOCYTES % (AUTO) 33.9 % (13-45); MEAN CORPUSCULAR VOLUME 89 fl (80-97); PLATELET COUNT 294 10^3/uL (150-450); RED BLOOD COUNT 4.42 10^6/uL (3.72-5.28); RED CELL DISTRIBUTION WIDTH 13.5 % (11.5-14.0); SEGMENTED NEUTROPHILS % (AUTO) 56.5 % (42-78); TOTAL CELLS COUNTED % (AUTO) 100 %; WHITE BLOOD COUNT 6.9 10^3/uL (4.0-10.5)
[2020-02-14 19:09] LABS: ALBUMIN 4.3 g/dL (3.5-5.0); ALKALINE PHOSPHATASE 119 U/L (38-126); ANION GAP 8 (5-19); ASPARTATE AMINO TRANSFERASE 28 U/L (14-36); BILIRUBIN,TOTAL 0.6 mg/dL (0.2-1.3); BLOOD UREA NITROGEN 18 mg/dL (7-20); CALCIUM 9.3 mg/dL (8.4-10.2); CARBON DIOXIDE 25 mmol/L (22-30); CHLORIDE 107 mmol/L (98-107); CREATINE KINASE 110 U/L (30-135); GLUCOSE 95 mg/dL (75-110); POTASSIUM 4.5 mmol/L (3.6-5.0); TOTAL PROTEIN 6.8 g/dL (6.3-8.2)
[2020-02-14 19:28] LABS: TROPONIN I 0.141 ng/mL
--- NOTE | 2020-02-14 19:34 | EKG REPORT ---
SEVERITY:- BORDERLINE ECG - SINUS RHYTHM BORDERLINE INFERIOR Q WAVES : Confirmed by: Rissa Loera 14-Feb-2020 19:33:37
--- NOTE | 2020-02-14 19:35 | EKG REPORT ---
SEVERITY:- ABNORMAL ECG - PROBABLE SR WITH ARTIFACTS, REC REPEAT EKG ABERRANT COMPLEX, POSSIBLY SUPRAVENTRICULAR RIGHT BUNDLE BRANCH BLOCK : Confirmed by: Rissa Loera 14-Feb-2020 19:34:39
[2020-02-14 20:00] LABS: APPEARANCE,URINE SLIGHTLY-CLOUDY; BILIRUBIN,URINE MODERATE (NEGATIVE); COLOR,URINE YELLOW; GLUCOSE, URINE NEGATIVE (NEGATIVE); KETONES,URINE NEGATIVE (NEGATIVE); LEUKOCYTE ESTERASE,URINE LARGE (NEGATIVE); NITRITE,URINE NEGATIVE (NEGATIVE); PROTEIN,URINE 30 mg/dL (NEGATIVE); URINE SPECIFIC GRAVITY 1.034; UROBILINOGEN,URINE NEGATIVE mg/dL (<2.0)
[2020-02-14] MEDS ORDERED: MAGNESIUM HYDROXIDE SUSP 30 ML UDCUP PO PRN (20:49)
[2020-02-14] MEDS ORDERED: LEVALBUTEROL HCL NEB 0.63 MG/3 ML AMPUL NEB PRN (20:49)
[2020-02-14] MEDS ORDERED: MELATONIN 5 MG TABLET PO PRN (20:53)
[2020-02-14] MEDS ORDERED: HYDROMORPHONE HCL INJ/PF 2 MG/ML AMPULE IV PRN ×4 (20:53→21:13)
[2020-02-14] MEDS ORDERED: HYDRALAZINE HCL INJ/PF 20 MG/1 ML SDV IV PRN (20:53)
[2020-02-14] MEDS ORDERED: LORAZEPAM INJ 2 MG/1 ML VIAL IV PRN (20:53)
[2020-02-14] MEDS ORDERED: ACETAMINOPHEN 325 MG TABLET PO PRN (20:53)
[2020-02-14] MEDS ORDERED: NICOTINE 21 MG/24 HR PATCH.TD24 TD PRN (20:53)
[2020-02-14] MEDS ORDERED: METOPROLOL TARTRATE PF/INJ 5 MG/5 ML SDV IV PRN (20:55)
--- NOTE | 2020-02-14 20:59 | RADIOLOGY REPORT (SQ) ---
VENTILATION/PERFUSION SCAN HISTORY: Shortness of breath. TECHNIQUE: The patient received 5.4 mCi of technetium-99m MAA intravenously. Multiple perfusion views of the chest were obtained. FINDINGS: The perfusion images show homogeneous distribution of the radiotracer in both lungs. There are no focal photopenic defect identified IMPRESSION: No evidence of acute pulmonary embolism.
[2020-02-14] MEDS: NITROGLYCERIN 0.4 MG/TAB 25 TAB/BOTTLE SL PRN ×2 (21:12→21:23)
[2020-02-14 22:47] LABS: CREATINE KINASE MB 2.32 ng/mL (<4.55); TROPONIN I 0.118 ng/mL
[2020-02-14] MEDS: FAMOTIDINE 20 MG TABLET PO SCH (23:21)
[2020-02-14] MEDS: HEPARIN SOD (PORCINE) 5,000 UNIT/ML 1 ML VIAL SUBCUT SCH (23:21)
[2020-02-14] MEDS: ONDANSETRON HCL INJ/PF 4 MG/2 ML SDV IV PRN (23:21)
--- NOTE | 2020-02-15 01:08 | PDOC H&P ---
History of Present Illness Admission Date/PCP: 02/14/20 20:28 FRANDY DUARTE MD Patient complains of: Dyspnea History of Present Illness: JEET LUCIO is a 54 year old female presented emergency room with a 1 month history of dyspnea. She admits frequent episodic dyspnea since her admission for pneumonia 1 month ago. Her dyspnea has resulted in numerous additional hospital and ER visits. She further admits that her dyspnea today is moderate to severe and has again been accompanied by severe squeezing chest pressure as it has been on several of her recent visits. Her dyspnea is associated with a nonproductive cough which has also been present on several previous visits. She admits an additional associated symptoms of soreness/rawness/burning in her throat. She denies other associated or accompanying signs and symptoms. She admits prior similar episodes as noted. She has not identified any aggravating or ameliorating factors for her dyspnea. In the emergency room she was found to have a moderately elevated troponin I and Dr. Nails was contacted by the emergency room provider and recommended the patient be admitted for further evaluation and treatment. Her symptoms were resolved completely in the emergency room with the administration of a GI cocktail and 50 mg of fentanyl IV x1. She has several negative COVID-19 tests with her most recent test having been obtained during her visit yesterday, when she was seen for fever, abdominal pain and blood in her stool. Patient was subsequently admitted to the hospital for further evaluation and treatment. Past Medical History Cardiac Medical History: Reports: Hyperlipidema, Hypertension Pulmonary Medical History: Reports: Asthma, Chronic Obstructive Pulmonary Disease (COPD) EENT Medical History: Denies: Cataracts, Ears - Hearing aids Neurological Medical History: Denies: Hemorrhagic CVA, Ischemic CVA, Seizures Endocrine Medical History: Reports: Obesity Denies: Diabetes Mellitus Type 1, Diabetes Mellitus Type 2, Hyperthyroidism, Hypothyroidism Renal/ Medical History: Denies: Chronic Kidney Disease, Nephrolithiasis Malignancy Medical History: Reports: None GI Medical History: Reports: Gastroesophageal Reflux Disease Denies: Cirrhosis, Crohn's Disease, Hepatitis, Peptic Ulcer Disease, Ulcerative Colitis Musculoskeltal Medical History: Reports: Arthritis, Fibromyalgia Skin Medical History: Denies: Eczema, Psoriasis Psychiatric Medical History: Reports: Bipolar Disorder, Depression, Tobacco Dependency Denies: Alcohol Dependency, Substance Abuse Traumatic Medical History: Reports: None Hematology: Denies: Anemia, Bleeding Tendencies Infectious Medical History: Reports: None Past Surgical History Past Surgical History: Reports: Section, Cholecystectomy, Hysterectomy, Orthopedic Surgery - left and right knee replacement, spinal fusion lower Social History Information Source: Patient Lives with: Spouse/Significant other Smoking Status: Former Smoker - Quit smoking 1 week ago Electronic Cigarette use?: No Frequency of Alcohol Use: None Hx Recreational Drug Use: No Drugs: None Hx Prescription Drug Abuse: No - Advance Directive Resuscitation Status: Full Code Surrogate healthcare decision maker:: Elvis Lucio Family History Family History: CVA - Numerous family members, Malignancy - Mother with non- Hodgkin's lymphoma, Other - Hereditary single kidney. denies: CAD - Father and numerous family members, DM - Numerous family members, Hypertension - Numerous family members Parental Family History Reviewed: Yes Children Family History Reviewed: No Sibling(s) Family History Reviewed.: Yes Medication/Allergy Home Medications: Amitriptyline HCl [Elavil 75 mg Tablet] 75 mg PO HSP PRN 01/31/20 Amlodipine Besylate [Norvasc 10 mg Tablet] 10 mg PO DAILY 01/31/20 Budesonide/Formoterol Fumarate [Symbicort HFA 160-4.5 mcg Inhaler 6 gm] 2 puff IH Q12 01/31/20 Buspirone HCl [Buspar 10 mg Tablet] 20 mg PO Q8 01/31/20 Duloxetine HCl [Cymbalta 30 mg Capsule.dr] 30 mg PO BID 01/31/20 Hydroxyzine Pamoate [Vistaril 50 mg Capsule] 100 mg PO HSP PRN 01/31/20 Lamotrigine [Lamictal] 150 mg PO QHS 01/31/20 Lamotrigine [Lamictal] 200 mg PO QAM 01/31/20 Linaclotide [Linzess 145 Mcg Capsule] 145 mcg PO Q6AM 01/31/20 Lorazepam [Ativan 1 mg Tablet] 1 mg PO DAILY 01/31/20 Methocarbamol [Robaxin 750 mg Tablet] 750 mg PO QID 01/31/20 Metoprolol Succinate [Toprol Xl 25 mg Tab.sr] 25 mg PO DAILY 01/31/20 Pantoprazole Sodium [Protonix [address] Tablet] 40 mg PO DAILY 01/31/20 Paroxetine HCl [Paxil 20 mg Tablet] 20 mg PO DAILY 01/31/20 Quetiapine Fumarate [Seroquel 25 mg Tablet] 150 mg PO QHS 01/31/20 Rosuvastatin Calcium 5 mg PO QHS 01/31/20 Tramadol HCl [Ultram 50 mg Tablet] 50 mg PO Q8 01/31/20 Acetaminophen [Tylenol 325 mg Tablet] 650 mg PO Q4HP PRN tablet 02/02/20 Ondansetron [Zofran Odt 4 mg Tablet] 1 - 2 tab PO Q4H PRN #10 tab.rapdis 02/13/20 Allergies/Adverse Reactions: Iodinated Contrast Media [IV Dye, Iodine Containing] Allergy (Verified 01/22/20 07:53) latex [Latex] Allergy (Verified 01/22/20 07:53) morphine Allergy (Verified 02/14/20 22:58) Sulfa (Sulfonamide Antibiotics) Allergy (Verified 01/22/20 07:53) Review of Systems Constitutional: PRESENT: as per HPI, chills - On visit of 02/12, fever(s) - On visit of 02/12 Eyes: ABSENT: visual disturbances, other - Eye pain Ears: ABSENT: hearing changes, other - Ear pain Nose, Mouth, and Throat: PRESENT: as per HPI, sore throat Cardiovascular: PRESENT: as per HPI, chest pain. ABSENT: palpitations Respiratory: PRESENT: as per HPI, cough, dyspnea. ABSENT: hemoptysis, sputum Gastrointestinal: PRESENT: as per HPI, abdominal pain - On visit of 02/12, hematochezia - On visit of 02/12, melena Genitourinary: ABSENT: dysuria, hematuria Musculoskeletal: PRESENT: back pain - Chronic. ABSENT: joint swelling Integumentary: ABSENT: pruritus, rash Neurological: ABSENT: confusion, convulsions, focal weakness, memory loss, syncope Psychiatric: ABSENT: anxiety, depression Endocrine: ABSENT: cold intolerance, heat intolerance Hematologic/Lymphatic: ABSENT: easy bleeding, easy bruising Allergic/Immunologic: ABSENT: seasonal rhinorrhea Physical Exam Vital Signs: Temp Pulse Resp BP Pulse Ox 98.6 F 89 16 149/79 H 95 02/14/20 19:07 02/14/20 19:07 02/14/20 19:07 02/14/20 19:07 02/14/20 19:07 Intake & Output 02/12/20 02/13/20 02/14/20 23:59 23:59 23:59 Weight 117.934 kg General appearance: PRESENT: no acute distress, cooperative, morbidly obese Head exam: PRESENT: atraumatic, normocephalic Eye exam: PRESENT: conjunctiva pink. ABSENT: conjunctival injection Ear exam: PRESENT: normal external ear exam. ABSENT: bleeding, drainage Mouth exam: PRESENT: dry mucosa, neck supple Neck exam: ABSENT: thyromegaly, tracheal deviation Respiratory exam: PRESENT: clear to auscultation deonna, symmetrical, unlabored Cardiovascular exam: PRESENT: RRR. ABSENT: clicks, gallop, rubs Pulses: PRESENT: normal radial pulses, normal dorsalis pedis pul Vascular exam: PRESENT: normal capillary refill. ABSENT: pallor GI/Abdominal exam: PRESENT: normal bowel sounds, soft Rectal exam: PRESENT: deferred Extremities exam: ABSENT: joint swelling, pedal edema Musculoskeletal exam: ABSENT: deformity, dislocation Neurological exam: PRESENT: alert, oriented to person, oriented to place, oriented to time, oriented to situation, CN II-XII grossly intact. ABSENT: motor sensory deficit Psychiatric exam: PRESENT: appropriate affect, normal mood Skin exam: PRESENT: dry, intact, warm. ABSENT: jaundice, rash, urticaria Results Laboratory Results: 02/14/20 18:20 02/14/20 18:20 02/14/20 02/14/20 02/14/20 18:20 18:20 19:00 WBC 6.9 RBC 4.42 Hgb 13.7 Hct 39.1 MCV 89 MCH 31.0 MCHC 35.0 RDW 13.5 Plt Count 294 Seg Neutrophils % 56.5 Sodium 139.8 Potassium 4.5 Chloride 107 Carbon Dioxide 25 Anion Gap 8 BUN 18 Creatinine 0.91 Est GFR ( Amer) > 60 Glucose 95 Calcium 9.3 Magnesium 2.4 H Total Bilirubin 0.6 AST 28 Alkaline Phosphatase 119 Total Protein 6.8 Albumin 4.3 Lipase 49.5 Urine Color YELLOW Urine Appearance SLIGHTLY-CLOUDY Urine pH 5.0 Ur Specific [place] 1.034 Urine Protein 30 H Urine Glucose (UA) NEGATIVE Urine Ketones NEGATIVE Urine Blood NEGATIVE Urine Nitrite NEGATIVE Ur Leukocyte Esterase LARGE H Urine WBC (Auto) 13 Urine RBC (Auto) 1 02/14/20 02/14/20 18:20 18:20 Creatine Kinase 110 Troponin I 0.141 NT-Pro-B Natriuret Pep 49 Impressions: Chest X-Ray 08/18/20 17:03 IMPRESSION: NO ACUTE RADIOGRAPHIC FINDING IN THE CHEST. Lung Scan-VQ [place] 02/14/20 19:18 IMPRESSION: No evidence of acute pulmonary embolism. Assessment and Plan - Diagnosis (1) Dyspnea Qualifiers: Dyspnea type: shortness of breath Qualified Code(s): R06.02 - Shortness of breath; R06.00 - Dyspnea, unspecified; R06.01 - Orthopnea Is this a current diagnosis for this admission?: Yes (2) Chest pain Qualifiers: Chest pain type: unspecified Qualified Code(s): R07.9 - Chest pain, unspecified Is this a current diagnosis for this admission?: Yes (3) GERD (gastroesophageal reflux disease) Qualifiers: Esophagitis presence: with esophagitis Qualified Code(s): K21.0 - Gastro- esophageal reflux disease with esophagitis Is this a current diagnosis for this admission?: Yes (4) Hypertension Qualifiers: Hypertension type: essential hypertension Qualified Code(s): I10 - Essential (primary) hypertension Is this a current diagnosis for this admission?: Yes (5) Hyperlipidemia Is this a current diagnosis for this admission?: Yes (6) Person under investigation for COVID-19 Is this a current diagnosis for this admission?: Yes (7) Morbid obesity with BMI of 45.0-49.9, adult Is this a current diagnosis for this admission?: Yes (8) Bipolar 1 disorder Is this a current diagnosis for this admission?: Yes - Plan Summary Summary: Patient will be admitted to the telemetry bed where she will receive routine supportive and symptomatic cares. Serial cardiac enzymes will be obtained. Cardiology consultation with Dr. Nails will be obtained. Patient will receive Dilaudid 0.5 to 2.0 mg IV every 3 hours as needed for pain. She will use Ativan 1 mg IV every 4 hours as needed for anxiety or restlessness. Consideration of gastroenterology/surgical consultation for EGD will be entertained. CBCs, metabolic profiles and additional laboratory and/or radiographic evaluations will be obtained as needed. Patient will be on a cardiac diet. Patient's usual home medications will be restarted, as appropriate, when her medication list has been verified and reconciled. - Time Time Spent with patient: 15-24 minutes Medications reviewed and adjusted accordingly: Yes Anticipated Discharge Disposition: Home, Self Care Anticipated Discharge Timeframe: within 72 hours - Inpatient Certification Based on my medical assessment, after consideration of the patient's comorbidities, presenting symptoms, or acuity I expect that the services needed warrant INPATIENT care.: Yes I certify that my determination is in accordance with my understanding of Medicare's requirements for reasonable and necessary INPATIENT services [42 CFR 412.3e].: Yes Medical Necessity: Failure to Improve With Outpatient Therapy, Significant Comorbidiites Make Outpatient Treatment Too Risky, Need Close Monitoring Due to Risk of Patient Decompensation, Need For Continuous Telemetry Monitoring, Risk of Complication if Not Cared For in Hospital
[2020-02-15] MEDS: MAG HYDROX/AL HYDROX/SIMETH SUSP 30 ML UDCUP PO PRN ×2 (01:19→10:50)
[2020-02-15] MEDS: HYDROMORPHONE HCL INJ/PF 2 MG/ML AMPULE IV PRN ×4 (02:15→16:22)
[2020-02-15 03:13] LABS: MEAN CORPUSCULAR HEMOGLOBIN 30.3 pg (27.0-33.4); MEAN CORPUSCULAR HGB CONC 34.1 g/dL (32.0-36.0); MEAN CORPUSCULAR VOLUME 89 fl (80-97); PLATELET COUNT 274 10^3/uL (150-450); RED BLOOD COUNT 4.28 10^6/uL (3.72-5.28); RED CELL DISTRIBUTION WIDTH 13.8 % (11.5-14.0); WHITE BLOOD COUNT 7.4 10^3/uL (4.0-10.5)
[2020-02-15 03:36] LABS: ANION GAP 7 (5-19); BLOOD UREA NITROGEN 17 mg/dL (7-20); CARBON DIOXIDE 25 mmol/L (22-30); CHLORIDE 105 mmol/L (98-107); GLUCOSE 117 mg/dL (75-110); POTASSIUM 3.8 mmol/L (3.6-5.0)
[2020-02-15 03:47] LABS: CREATINE KINASE MB 2.39 ng/mL (<4.55); TROPONIN I 0.101 ng/mL
[2020-02-15] MEDS: ONDANSETRON HCL INJ/PF 4 MG/2 ML SDV IV PRN ×2 (05:34→10:52)
[2020-02-15] MEDS: HEPARIN SOD (PORCINE) 5,000 UNIT/ML 1 ML VIAL SUBCUT SCH ×3 (05:34→21:51)
[2020-02-15 10:34] LABS: CREATINE KINASE MB 3.04 ng/mL (<4.55); TROPONIN I 0.075 ng/mL
[2020-02-15] MEDS: FAMOTIDINE 20 MG TABLET PO SCH ×2 (10:51→21:49)
[2020-02-15] MEDS: DOCUSATE SODIUM 100 MG CAPSULE PO SCH ×2 (10:51→17:29)
--- NOTE | 2020-02-15 12:54 | PDOC CONSULTATION ---
Consultation Consult Date: 02/15/20 Provider Consulted: SADIE FARR Consult reason:: Dyspnea, mildly abnormal troponin History of Present Illness Admission Date/PCP: 02/14/20 20:28 FRANDY DUARTE MD Patient complains of: Multiple complaints-chest pain, dizziness, fever History of Present Illness: JEET FIGUEROA is a 54 year old female 1. Systemic hypertension 2. Dyslipidemia 3. COPD 4. Nicotine dependence-cigarettes Patient was admitted secondary to complaints of dyspnea and dizziness. She has had previous pharmacological nuclear stress test was was negative for ischemia. She reported chest pressure and pain as well as dyspnea on several occasions on multiple ED visits. She also reported subjective fevers during this admission. She reported symptoms suggestive of esophageal spasm which improved after GI cocktail in the emergency room. She has been evaluated for COVID-19 and has been negative multiple times. At the time of my evaluation patient symptoms are much improved. She continues to smoke cigarettes unfortunately. Review of systems is positive for chest pain, dyspnea, dizziness, fever. Pertinent positives noted here and in the HPI all other systems negative. No familial illnesses reported to me. Past Medical History Cardiac Medical History: Reports: Hyperlipidema, Hypertension Pulmonary Medical History: Reports: Asthma, Chronic Obstructive Pulmonary Disease (COPD) EENT Medical History: Denies: Cataracts, Ears - Hearing aids Neurological Medical History: Denies: Hemorrhagic CVA, Ischemic CVA, Seizures Endocrine Medical History: Reports: Obesity Denies: Diabetes Mellitus Type 1, Diabetes Mellitus Type 2, Hyperthyroidism, Hypothyroidism Renal/ Medical History: Denies: Chronic Kidney Disease, Nephrolithiasis Malignancy Medical History: Reports: None GI Medical History: Reports: Gastroesophageal Reflux Disease Denies: Cirrhosis, Crohn's Disease, Hepatitis, Peptic Ulcer Disease, Ulcerative Colitis Musculoskeltal Medical History: Reports: Arthritis, Fibromyalgia Skin Medical History: Denies: Eczema, Psoriasis Psychiatric Medical History: Reports: Bipolar Disorder, Depression, Tobacco Dependency Denies: Alcohol Dependency, Substance Abuse Traumatic Medical History: Reports: None Hematology: Denies: Anemia, Bleeding Tendencies Infectious Medical History: Reports: None Past Surgical History Past Surgical History: Reports: Section, Cholecystectomy, Hysterectomy, Orthopedic Surgery - left and right knee replacement, spinal fusion lower Social History Lives with: Spouse/Significant other Smoking Status: Former Smoker - Quit smoking 1 week ago Cigarettes Packs Per Day: 1 Electronic Cigarette use?: No Number of Years Smokin Last Time Smoked: last week Frequency of Alcohol Use: None Hx Recreational Drug Use: No Drugs: None Hx Prescription Drug Abuse: No - Advance Directive Resuscitation Status: Full Code Family History Family History: CVA - Numerous family members, Malignancy - Mother with non- Hodgkin's lymphoma, Other - Hereditary single kidney. denies: CAD - Father and numerous family members, DM - Numerous family members, Hypertension - Numerous family members Parental Family History Reviewed: Yes - No familial illnesses Children Family History Reviewed: NA Sibling(s) Family History Reviewed.: NA Medication/Allergy Home Medications: Amlodipine Besylate [Norvasc 10 mg Tablet] 10 mg PO DAILY 01/31/20 Budesonide/Formoterol Fumarate [Symbicort HFA 160-4.5 mcg Inhaler 6 gm] 2 puff IH Q12 01/31/20 Buspirone HCl [Buspar 10 mg Tablet] 20 mg PO Q8 01/31/20 Duloxetine HCl [Cymbalta 30 mg Capsule.dr] 30 mg PO BID 01/31/20 Lamotrigine [Lamictal] 150 mg PO QHS 01/31/20 Lamotrigine [Lamictal] 200 mg PO QAM 01/31/20 Linaclotide [Linzess 145 Mcg Capsule] 145 mcg PO Q6AM 01/31/20 Lorazepam [Ativan 1 mg Tablet] 1 mg PO DAILY 01/31/20 Methocarbamol [Robaxin 750 mg Tablet] 750 mg PO QID 01/31/20 Metoprolol Succinate [Toprol Xl 25 mg Tab.sr] 25 mg PO DAILY 01/31/20 Pantoprazole Sodium [Protonix [address] Tablet] 40 mg PO Q6AM 01/31/20 Paroxetine HCl [Paxil 20 mg Tablet] 20 mg PO DAILY 01/31/20 Quetiapine Fumarate [Seroquel 25 mg Tablet] 150 mg PO QHS 01/31/20 Rosuvastatin Calcium 5 mg PO DAILY 01/31/20 Tramadol HCl [Ultram 50 mg Tablet] 50 mg PO Q8 01/31/20 Clonazepam [Klonopin] 0.5 mg PO DAILY 02/15/20 Olmesartan Medoxomil [Benicar] 40 mg PO DAILY 02/15/20 Promethazine HCl [Phenergan 25 mg Tablet] 25 mg PO Q6HP PRN 02/15/20 Trazodone HCl [Desyrel 50 mg Tablet] 50 mg PO QHS 02/15/20 Allergies/Adverse Reactions: Iodinated Contrast Media [IV Dye, Iodine Containing] Allergy (Verified 01/22/20 07:53) latex [Latex] Allergy (Verified 01/22/20 07:53) morphine Allergy (Verified 02/14/20 22:58) Sulfa (Sulfonamide Antibiotics) Allergy (Verified 01/22/20 07:53) Review of Systems Constitutional: PRESENT: as per HPI, fever(s) Eyes: ABSENT: as per HPI, visual disturbances, other Ears: ABSENT: as per HPI, hearing changes, other Nose, Mouth, and Throat: ABSENT: as per HPI, headache(s), mouth pain, sore throat, vertigo, other Cardiovascular: PRESENT: chest pain, dyspnea on exertion Respiratory: PRESENT: cough, dyspnea Gastrointestinal: PRESENT: dysphagia Musculoskeletal: ABSENT: joint swelling Neurological: PRESENT: dizziness Hematologic/Lymphatic: PRESENT: as per HPI Physical Exam Vital Signs: Temp Pulse Resp BP Pulse Ox 98.7 F 78 18 131/64 H 94 02/15/20 03:40 02/15/20 03:40 02/15/20 03:40 02/15/20 03:40 02/15/20 03:40 Intake & Output 02/14/20 02/15/20 02/16/20 06:59 06:59 06:59 Intake Total 520 Output Total 175 Balance 345 Weight 125.8 kg General appearance: PRESENT: no acute distress, cooperative, obese, well- developed, well-nourished Head exam: PRESENT: atraumatic, normocephalic Eye exam: PRESENT: conjunctiva pink Mouth exam: PRESENT: moist Respiratory exam: PRESENT: prolonged expiratory phas, symmetrical, wheezes Cardiovascular exam: PRESENT: RRR, +S1, +S2 Pulses: PRESENT: normal radial pulses GI/Abdominal exam: PRESENT: soft Rectal exam: PRESENT: deferred Neurological exam: PRESENT: alert, awake, oriented to person, oriented to place, oriented to time, oriented to situation Psychiatric exam: PRESENT: anxious, appropriate affect Skin exam: PRESENT: dry, intact, normal color Results Laboratory Results: 02/15/20 03:05 02/15/20 03:05 02/14/20 02/14/20 02/14/20 18:20 18:20 19:00 WBC 6.9 RBC 4.42 Hgb 13.7 Hct 39.1 MCV 89 MCH 31.0 MCHC 35.0 RDW 13.5 Plt Count 294 Seg Neutrophils % 56.5 Sodium 139.8 Potassium 4.5 Chloride 107 Carbon Dioxide 25 Anion Gap 8 BUN 18 Creatinine 0.91 Est GFR ( Amer) > 60 Glucose 95 Calcium 9.3 Magnesium 2.4 H Total Bilirubin 0.6 AST 28 Alkaline Phosphatase 119 Total Protein 6.8 Albumin 4.3 Lipase 49.5 Urine Color YELLOW Urine Appearance SLIGHTLY-CLOUDY Urine pH 5.0 Ur Specific [place] 1.034 Urine Protein 30 H Urine Glucose (UA) NEGATIVE Urine Ketones NEGATIVE Urine Blood NEGATIVE Urine Nitrite NEGATIVE Ur Leukocyte Esterase LARGE H Urine WBC (Auto) 13 Urine RBC (Auto) 1 02/15/20 02/15/20 03:05 03:05 WBC 7.4 RBC 4.28 Hgb 13.0 Hct 38.0 MCV 89 MCH 30.3 MCHC 34.1 RDW 13.8 Plt Count 274 Seg Neutrophils % Sodium 136.8 L Potassium 3.8 Chloride 105 Carbon Dioxide 25 Anion Gap 7 BUN 17 Creatinine 0.95 Est GFR ( Amer) > 60 Glucose 117 H Calcium 9.0 Magnesium 2.3 Total Bilirubin AST Alkaline Phosphatase Total Protein Albumin Lipase Urine Color Urine Appearance Urine pH Ur Specific [place] Urine Protein Urine Glucose (UA) Urine Ketones Urine Blood Urine Nitrite Ur Leukocyte Esterase Urine WBC (Auto) Urine RBC (Auto) 02/14/20 02/14/20 02/14/20 18:20 18:20 22:09 Creatine Kinase 110 98 CK-MB (CK-2) Troponin I 0.141 NT-Pro-B Natriuret Pep 49 02/14/20 02/15/20 02/15/20 22:09 03:05 03:05 Creatine Kinase 121 CK-MB (CK-2) 2.32 2.39 Troponin I 0.118 0.101 NT-Pro-B Natriuret Pep EKG Comments: VQ scan is negative for pulmonary embolism Twelve-lead EKG. 02/14/2020. Independently viewed by me. Sinus rhythm, 81 bpm, normal AV conduction, QTC is 441 ms Nuclear stress test 02/02/2020 No scintigraphic evidence of myocardial ischemia no EKG evidence of myocardial ischemia. The ventricular ejection fraction 55%. Troponin 0.141 0.118 0.101 0.075 chest x-ray 02/14/2020 No acute radiographic finding Impressions: Chest X-Ray 02/14/20 17:03 IMPRESSION: NO ACUTE RADIOGRAPHIC FINDING IN THE CHEST. Lung Scan-VQ NM 02/14/20 19:18 IMPRESSION: No evidence of acute pulmonary embolism. Assessment & Plan - Diagnosis (1) Chest pain Qualifiers: Chest pain type: unspecified Qualified Code(s): R07.9 - Chest pain, u nspecified Is this a current diagnosis for this admission?: Yes Plan: Description of symptoms is quite atypical. Recent myocardial perfusion imaging study was negative for myocardial ischemia Indeterminate low-level troponins without a clear trend and EKG nondiagnostic for myocardial ischemia At the present time I do not believe that the patient is having acute coronary syndrome. I also believe that myocardial ischemia is not accounting for patient's symptoms. Continue risk factor modification is necessary given patient's continued morenita lucius abuse and multiple other risk factors. (2) Elevated troponin Is this a current diagnosis for this admission?: Yes Plan: Mildly elevated troponins. This could be secondary to dyspnea and COPD as well as hypertension. Unlikely due to acute coronary syndrome (3) Shortness of breath Is this a current diagnosis for this admission?: Yes Plan: Likely multifactorial. Patient continues to smoke cigarettes and has probably underlying COPD Presently at the time of my examination she is not dyspneic. (4) Tobacco abuse Is this a current diagnosis for this admission?: Yes Plan: Patient was counseled regarding nicotine cessation. Total time spent was approximately 5 minutes. Detrimental effects on cardiovascular and overall health was discussed. - Notes Notes: Patient reports dysphagia and improvement of symptoms after GI cocktail. She reports that she has upcoming appointment for GI endoscopy.
--- NOTE | 2020-02-15 20:13 | PDOC PROGRESS REPORT ---
Subjective Progress Note for:: 02/15/20 Subjective:: Patient denies chest pain/discomfort currently Reason For Visit: DYSPNEA Physical Exam Vital Signs: Temp Pulse Resp BP Pulse Ox 98.8 F 91 17 110/81 92 02/15/20 13:17 02/15/20 14:00 02/15/20 13:17 02/15/20 13:17 02/15/20 13:17 Intake & Output 02/14/20 02/15/20 02/16/20 06:59 06:59 06:59 Intake Total 520 600 Output Total 175 Balance 345 600 Weight 125.8 kg 125.8 kg General appearance: PRESENT: no acute distress, cooperative, morbidly obese Head exam: PRESENT: atraumatic, normocephalic Eye exam: PRESENT: conjunctiva pink. ABSENT: scleral icterus Mouth exam: PRESENT: moist, tongue midline Neck exam: ABSENT: JVD Respiratory exam: PRESENT: clear to auscultation deonna, symmetrical, unlabored. ABSENT: accessory muscle use Cardiovascular exam: PRESENT: RRR, +S1, +S2 Pulses: PRESENT: normal carotid pulses, normal radial pulses Vascular exam: PRESENT: normal capillary refill GI/Abdominal exam: PRESENT: normal bowel sounds, soft. ABSENT: distended, firm, guarding, rebound, rigid, tenderness Rectal exam: PRESENT: deferred Extremities exam: ABSENT: pedal edema Musculoskeletal exam: PRESENT: ambulatory Neurological exam: PRESENT: alert, awake, oriented to person, oriented to place, oriented to time, oriented to situation, CN II-XII grossly intact. ABSENT: motor sensory deficit Psychiatric exam: PRESENT: normal mood, unusual affect. ABSENT: agitated, anxious Skin exam: PRESENT: dry, normal color, warm Results Laboratory Results: 02/15/20 03:05 02/15/20 03:05 02/14/20 02/15/20 02/15/20 19:00 03:05 03:05 WBC 7.4 RBC 4.28 Hgb 13.0 Hct 38.0 MCV 89 MCH 30.3 MCHC 34.1 RDW 13.8 Plt Count 274 Sodium 136.8 L Potassium 3.8 Chloride 105 Carbon Dioxide 25 Anion Gap 7 BUN 17 Creatinine 0.95 Est GFR ( Amer) > 60 Glucose 117 H Calcium 9.0 Magnesium 2.3 Urine Color YELLOW Urine Appearance SLIGHTLY-CLOUDY Urine pH 5.0 Ur Specific [place] 1.034 Urine Protein 30 H Urine Glucose (UA) NEGATIVE Urine Ketones NEGATIVE Urine Blood NEGATIVE Urine Nitrite NEGATIVE Ur Leukocyte Esterase LARGE H Urine WBC (Auto) 13 Urine RBC (Auto) 1 02/14/20 02/14/20 02/14/20 18:20 18:20 22:09 Creatine Kinase 110 98 CK-MB (CK-2) Troponin I 0.141 NT-Pro-B Natriuret Pep 49 02/14/20 02/15/20 02/15/20 22:09 03:05 03:05 Creatine Kinase 121 CK-MB (CK-2) 2.32 2.39 Troponin I 0.118 0.101 NT-Pro-B Natriuret Pep 02/15/20 02/15/20 09:27 09:27 Creatine Kinase 155 H CK-MB (CK-2) 3.04 Troponin I 0.075 NT-Pro-B Natriuret Pep Impressions: Chest X-Ray 02/14/20 17:03 IMPRESSION: NO ACUTE RADIOGRAPHIC FINDING IN THE CHEST. Lung Scan-VQ NM 02/14/20 19:18 IMPRESSION: No evidence of acute pulmonary embolism. Assessment and Plan - Diagnosis (1) Chest pain Qualifiers: Chest pain type: unspecified Qualified Code(s): R07.9 - Chest pain, unspecified Is this a current diagnosis for this admission?: Yes Plan: Cardiology input appreciated Patient denies chest discomfort at the time of exam Patient had recent myocardial perfusion imaging study which was negative for myocardial ischemia Per cardiology, it is not felt that her chest discomfort is related to acute coronary syndrome (2) Elevated troponin Is this a current diagnosis for this admission?: Yes Plan: Troponin is only mildly elevated trending down Etiology, this could be related to COPD or HTN As noted above cardiology does not feel like this is client services representative of acute coronary syndrome (3) Shortness of breath Is this a current diagnosis for this admission?: Yes Plan: Patient was not short of breath at the time of exam Likely multifactorial Patient is current smoker with likely underlying COPD Continue budesonide/formoterol 2 puffs every 12 hours (product substitution per pharmacy protocol) (4) GERD (gastroesophageal reflux disease) Qualifiers: Esophagitis presence: with esophagitis Qualified Code(s): K21.0 - Gastro-esophageal reflux disease with esophagitis Is this a current diagnosis for this admission?: Yes Plan: Continue famotidine 20 mg p.o. 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 daily Continue metoprolol succinate 25 mg p.o. daily (6) Dyslipidemia Is this a current diagnosis for this admission?: Yes Plan: Continue rosuvastatin 5 mg p.o. daily (hospital to product substituted per protocol) (7) Morbid obesity with BMI of 45.0-49.9, adult Is this a current diagnosis for this admission?: Yes Plan: BMI 49.1 Discussed effects of obesity on overall health (8) Tobacco abuse Is this a current diagnosis for this admission?: Yes Plan: Smoking cessation counseling provided Patient states that she is attempting to quit - Plan Summary Summary: Patient has extensive psych/anxiety/chronic pain history Continue outpatient medications - Time Time Spent with patient: 25-34 minutes Medications reviewed and adjusted accordingly: Yes Anticipated Discharge Disposition: Home, Self Care Anticipated Discharge Timeframe: TBD
[2020-02-15] MEDS ORDERED: (PENDING PHARMACY ID) (Linaclotide 145 MCG) PO SCH (21:00)
[2020-02-15] MEDS: LAMOTRIGINE 100 MG TABLET PO SCH (21:49)
[2020-02-15] MEDS: QUETIAPINE FUMARATE 100 MG TABLET PO SCH (21:49)
[2020-02-15] MEDS: METHOCARBAMOL 750 MG TABLET PO SCH (21:49)
[2020-02-15] MEDS: DULOXETINE HCL 30 MG CAPSULE.DR PO SCH (21:50)
[2020-02-15] MEDS: BUSPIRONE HCL 10 MG TABLET PO SCH (21:50)
[2020-02-15] MEDS: TRAMADOL HCL 50 MG TABLET PO SCH (21:50)
[2020-02-15] MEDS: TRAZODONE HCL 50 MG TABLET PO SCH (21:50)
[2020-02-15] MEDS: ATORVASTATIN CALCIUM 10 MG TABLET PO SCH (21:50)
[2020-02-15] MEDS ORDERED: QUETIAPINE FUMARATE 25 MG TABLET PO SCH (22:00)
[2020-02-16] MEDS ORDERED: (PENDING PHARMACY ID) (Linaclotide 145 MCG) PO SCH (06:00)
[2020-02-16] MEDS: TRAMADOL HCL 50 MG TABLET PO SCH ×3 (07:37→21:25)
[2020-02-16] MEDS: BUSPIRONE HCL 10 MG TABLET PO SCH ×3 (07:37→21:25)
[2020-02-16] MEDS: LAMOTRIGINE 100 MG TABLET PO SCH ×2 (07:38→21:25)
[2020-02-16] MEDS: HEPARIN SOD (PORCINE) 5,000 UNIT/ML 1 ML VIAL SUBCUT SCH ×3 (07:38→21:26)
[2020-02-16] MEDS: MAG HYDROX/AL HYDROX/SIMETH SUSP 30 ML UDCUP PO PRN ×2 (08:21→17:06)
[2020-02-16] MEDS: GUAIFENESIN SYRP 200 MG/10 ML UDC PO PRN ×2 (08:36→17:06)
[2020-02-16 09:55] LABS: ANION GAP 8 (5-19); BLOOD UREA NITROGEN 13 mg/dL (7-20); CALCIUM 9.1 mg/dL (8.4-10.2); CARBON DIOXIDE 28 mmol/L (22-30); CHLORIDE 104 mmol/L (98-107); GLUCOSE 180 mg/dL (75-110)
[2020-02-16] MEDS ORDERED: (PENDING PHARMACY ID) (Olmesartan Medoxomil [Benicar] 40 MG) PO SCH (10:00)
[2020-02-16] MEDS ORDERED: AMLODIPINE BESYLATE 10 MG TABLET PO SCH (10:00)
[2020-02-16] MEDS ORDERED: (PENDING PHARMACY ID) (Rosuvastatin Calcium [Rosuvastatin Calcium] 5 MG) PO SCH (10:00)
[2020-02-16] MEDS: FLUTICASONE/VILANTEROL 200-25 MCG/DOSE IH SCH (10:36)
[2020-02-16] MEDS: LOSARTAN POTASSIUM 50 MG TABLET PO SCH (10:37)
[2020-02-16] MEDS: DULOXETINE HCL 30 MG CAPSULE.DR PO SCH ×2 (10:37→21:25)
[2020-02-16] MEDS: PAROXETINE HCL 20 MG TABLET PO SCH (10:37)
[2020-02-16] MEDS: FAMOTIDINE 20 MG TABLET PO SCH (10:37)
[2020-02-16] MEDS: DOCUSATE SODIUM 100 MG CAPSULE PO SCH ×2 (10:37→17:06)
[2020-02-16] MEDS: LORAZEPAM 1 MG TABLET PO SCH (10:37)
[2020-02-16] MEDS: METHOCARBAMOL 750 MG TABLET PO SCH ×4 (10:37→21:25)
[2020-02-16] MEDS: METOPROLOL SUCCINATE 25 MG TAB.SR.24H PO SCH (10:39)
[2020-02-16] MEDS: ONDANSETRON HCL INJ/PF 4 MG/2 ML SDV IV PRN (10:43)
--- NOTE | 2020-02-16 13:44 | PDOC PROGRESS REPORT ---
Subjective Progress Note for:: 02/16/20 Subjective:: Patient continues to complain of intermittent midsternal chest pain associated with nausea/vomiting Reason For Visit: DYSPNEA Physical Exam Vital Signs: Temp Pulse Resp BP Pulse Ox 98.3 F 106 H 16 141/66 H 92 02/16/20 10:50 02/16/20 11:40 02/16/20 11:40 02/16/20 10:50 02/16/20 10:50 Intake & Output 02/15/20 02/16/20 02/17/20 06:59 06:59 06:59 Intake Total 520 1100 Output Total 175 Balance 345 1100 Weight 125.8 kg 125.4 kg General appearance: PRESENT: no acute distress, cooperative, morbidly obese Head exam: PRESENT: atraumatic, normocephalic Eye exam: PRESENT: conjunctiva pink. ABSENT: scleral icterus Mouth exam: PRESENT: moist, tongue midline Neck exam: ABSENT: JVD Respiratory exam: PRESENT: clear to auscultation deonna, decreased breath sounds - Air entry diminished at bases bilaterally, symmetrical, unlabored. ABSENT: accessory muscle use Cardiovascular exam: PRESENT: RRR, +S1, +S2 Vascular exam: PRESENT: normal capillary refill GI/Abdominal exam: PRESENT: normal bowel sounds, soft. ABSENT: distended, tenderness Rectal exam: PRESENT: deferred Extremities exam: ABSENT: calf tenderness, pedal edema Musculoskeletal exam: PRESENT: ambulatory Neurological exam: PRESENT: alert, awake, oriented to person, oriented to place, oriented to time, oriented to situation, CN II-XII grossly intact. ABSENT: motor sensory deficit Psychiatric exam: PRESENT: agitated, anxious, unusual affect, other - Patient is very manipulative and unrealistic regarding her work-up. She has a scheduled outpatient endoscopy for February 27 but does not want to wait and insists on having endoscopy while inpatient. I informed her that this is not going to happen that an endoscopy in a nonurgent situation is an outpatient procedure. ABSENT: appropriate affect Skin exam: PRESENT: dry, normal color, warm Results Laboratory Results: 02/15/20 03:05 02/16/20 08:47 02/16/20 08:47 Sodium 140.0 Potassium 4.0 Chloride 104 Carbon Dioxide 28 Anion Gap 8 BUN 13 Creatinine 0.82 Est GFR ( Amer) > 60 Glucose 180 H Calcium 9.1 02/14/20 02/14/20 02/14/20 18:20 18:20 22:09 Creatine Kinase 110 98 CK-MB (CK-2) Troponin I 0.141 NT-Pro-B Natriuret Pep 49 02/14/20 02/15/20 02/15/20 22:09 03:05 03:05 Creatine Kinase 121 CK-MB (CK-2) 2.32 2.39 Troponin I 0.118 0.101 NT-Pro-B Natriuret Pep 02/15/20 02/15/20 02/16/20 09:27 09:27 08:47 Creatine Kinase 155 H CK-MB (CK-2) 3.04 Troponin I 0.075 0.052 NT-Pro-B Natriuret Pep Impressions: Chest X-Ray 02/14/20 17:03 IMPRESSION: NO ACUTE RADIOGRAPHIC FINDING IN THE CHEST. Lung Scan-VQ NM 02/14/20 19:18 IMPRESSION: No evidence of acute pulmonary embolism. Assessment and Plan - Diagnosis (1) Chest pain Qualifiers: Chest pain type: unspecified Qualified Code(s): R07.9 - Chest pain, unspecified Is this a current diagnosis for this admission?: Yes Plan: Cardiology input appreciated Patient denies chest discomfort at the time of exam however she does state that she has had several episodes since being seen by me yesterday Patient had recent myocardial perfusion imaging study which was negative for myocardial ischemia Per cardiology, it is not felt that her chest discomfort is related to acute coronary syndrome This may represent esophageal spasm. The patient has an outpatient endoscopy scheduled for February 27 and does not want to wait until then however of discussed with her that endoscopy in a nonurgent situation is not something that will likely be done while she is hospitalized Trial diltiazem 30 mg p.o. every 8 hours, titrate as needed and as BP will allow -stop amlodipine (2) Elevated troponin Is this a current diagnosis for this admission?: Yes Plan: Troponin is only mildly elevated and trending down This could be related to COPD or HTN As noted above cardiology does not feel like this is student services representative of acute coronary syndrome (3) Shortness of breath Is this a current diagnosis for this admission?: Yes Plan: Patient was not short of breath at the time of exam Likely multifactorial Patient is current smoker with likely underlying COPD Continue fluticasone/Vilanterol 200/25 mcg inhaled daily (4) GERD (gastroesophageal reflux disease) Qualifiers: Esophagitis presence: with esophagitis Qualified Code(s): K21.0 - Gastro- esophageal reflux disease with esophagitis Is this a current diagnosis for this admission?: Yes Plan: D/C famotidine Start pantoprazole 40 mg p.o. daily (5) Hypertension Qualifiers: Hypertension type: essential hypertension Qualified Code(s): I10 - Essential (primary) hypertension Is this a current diagnosis for this admission?: Yes Plan: Adequate BP control Stop amlodipine Start diltiazem 30 mg p.o. every 8 hours, hopefully a non-dihydropyridine calcium channel byron will be more effective in managing patients potential esophageal spasm Continue metoprolol succinate 25 mg p.o. daily Continue losartan 100 mg p.o. daily (6) Dyslipidemia Is this a current diagnosis for this admission?: Yes Plan: Continue atorvastatin 10 mg p.o. nightly (7) Morbid obesity with BMI of 45.0-49.9, adult Is this a current diagnosis for this admission?: Yes Plan: BMI 49.1 Discussed effects of obesity on overall health (8) Tobacco abuse Is this a current diagnosis for this admission?: Yes Plan: Smoking cessation reinforced - Plan Summary Summary: Patient has extensive psych/anxiety/chronic pain history Continue outpatient medications - Time Time Spent with patient: 25-34 minutes Medications reviewed and adjusted accordingly: Yes Anticipated Discharge Disposition: Home, Self Care Anticipated Discharge Timeframe: TBD
[2020-02-16] MEDS: PANTOPRAZOLE SODIUM 40 MG TABLET.DR PO SCH (14:14)
[2020-02-16] MEDS: DILTIAZEM HCL 30 MG TABLET PO SCH ×2 (14:15→21:25)
[2020-02-16] MEDS ORDERED: ONDANSETRON HCL INJ/PF 4 MG/2 ML SDV IV PRN (14:30)
[2020-02-16] MEDS ORDERED: LIDOCAINE 2% VISCOUS SOLN 15 ML UDCUP PO ONE (18:00)
[2020-02-16] MEDS: PROMETHAZINE HCL 25 MG TABLET PO PRN (18:01)
[2020-02-16] MEDS: TRAZODONE HCL 50 MG TABLET PO SCH (21:25)
[2020-02-16] MEDS: ATORVASTATIN CALCIUM 10 MG TABLET PO SCH (21:25)
[2020-02-16] MEDS: QUETIAPINE FUMARATE 100 MG TABLET PO SCH (21:26)
[2020-02-17] MEDS: MAG HYDROX/AL HYDROX/SIMETH SUSP 30 ML UDCUP PO PRN ×2 (03:01→09:18)
[2020-02-17] MEDS: DILTIAZEM HCL 30 MG TABLET PO SCH ×3 (05:11→18:43)
[2020-02-17] MEDS: TRAMADOL HCL 50 MG TABLET PO SCH ×3 (05:11→21:05)
[2020-02-17] MEDS: BUSPIRONE HCL 10 MG TABLET PO SCH ×3 (05:11→21:04)
[2020-02-17] MEDS: PANTOPRAZOLE SODIUM 40 MG TABLET.DR PO SCH ×2 (05:11→18:43)
[2020-02-17] MEDS: PROMETHAZINE HCL 25 MG TABLET PO PRN ×2 (05:11→18:44)
[2020-02-17] MEDS: HEPARIN SOD (PORCINE) 5,000 UNIT/ML 1 ML VIAL SUBCUT SCH ×3 (05:12→21:03)
[2020-02-17] MEDS: GUAIFENESIN SYRP 200 MG/10 ML UDC PO PRN (09:18)
[2020-02-17] MEDS: LAMOTRIGINE 100 MG TABLET PO SCH ×2 (09:18→21:05)
[2020-02-17] MEDS: METHOCARBAMOL 750 MG TABLET PO SCH ×4 (09:24→21:04)
[2020-02-17] MEDS: LORAZEPAM 1 MG TABLET PO SCH (09:24)
[2020-02-17] MEDS: LOSARTAN POTASSIUM 50 MG TABLET PO SCH (09:24)
[2020-02-17] MEDS: METOPROLOL SUCCINATE 25 MG TAB.SR.24H PO SCH (09:24)
[2020-02-17] MEDS: FLUTICASONE/VILANTEROL 200-25 MCG/DOSE IH SCH (09:24)
[2020-02-17] MEDS: DULOXETINE HCL 30 MG CAPSULE.DR PO SCH ×2 (09:24→21:04)
[2020-02-17] MEDS: DOCUSATE SODIUM 100 MG CAPSULE PO SCH ×2 (09:24→18:43)
[2020-02-17] MEDS: PAROXETINE HCL 20 MG TABLET PO SCH (09:24)
[2020-02-17] MEDS ORDERED: MAG HYDROX/AL HYDROX/SIMETH SUSP 30 ML UDCUP PO SCH (09:45)
[2020-02-17] MEDS ORDERED: HYDROMORPHONE HCL INJ/PF 2 MG/ML AMPULE IV SCH ×2 (09:45→14:00)
[2020-02-17] MEDS ORDERED: LIDOCAINE 2% VISCOUS SOLN 15 ML UDCUP PO SCH ×2 (10:30→14:00)
--- NOTE | 2020-02-17 10:38 | PDOC PROGRESS REPORT ---
Subjective Progress Note for:: 02/17/20 Subjective:: Continues to complain of intermittent spasmodic retrosternal chest pain. Also complains of inability to eat 2/2 discomfort Reason For Visit: DYSPNEA Physical Exam Vital Signs: Temp Pulse Resp BP Pulse Ox 98.3 F 92 20 115/82 93 02/17/20 07:44 02/17/20 07:44 02/17/20 07:44 02/17/20 07:44 02/17/20 07:44 Intake & Output 02/16/20 02/17/20 02/18/20 06:59 06:59 06:59 Intake Total 1100 Balance 1100 Weight 125.4 kg 122.4 kg General appearance: PRESENT: no acute distress, cooperative, morbidly obese Head exam: PRESENT: atraumatic, normocephalic Eye exam: PRESENT: conjunctiva pink. ABSENT: scleral icterus Mouth exam: PRESENT: moist, tongue midline Neck exam: ABSENT: JVD Respiratory exam: PRESENT: clear to auscultation deonna, decreased breath sounds - Entry diminished at bases bilaterally, prolonged expiratory phas, symmetrical, unlabored. ABSENT: accessory muscle use Cardiovascular exam: PRESENT: RRR, +S1, +S2 Pulses: PRESENT: normal radial pulses, +1 pedal pulses bilateral Vascular exam: PRESENT: normal capillary refill GI/Abdominal exam: PRESENT: normal bowel sounds, soft. ABSENT: distended, tenderness Rectal exam: PRESENT: deferred Extremities exam: ABSENT: calf tenderness, pedal edema Musculoskeletal exam: PRESENT: ambulatory Neurological exam: PRESENT: alert, awake, oriented to person, oriented to place, oriented to time, oriented to situation, CN II-XII grossly intact. ABSENT: motor sensory deficit Psychiatric exam: PRESENT: anxious, other - Each time patient examined she brings up her need for opioids and benzodiazepines Skin exam: PRESENT: dry, normal color, warm Results Laboratory Results: 02/15/20 03:05 02/16/20 08:47 02/14/20 02/14/20 02/14/20 18:20 18:20 22:09 Creatine Kinase 110 98 CK-MB (CK-2) Troponin I 0.141 NT-Pro-B Natriuret Pep 49 02/14/20 02/15/20 02/15/20 22:09 03:05 03:05 Creatine Kinase 121 CK-MB (CK-2) 2.32 2.39 Troponin I 0.118 0.101 NT-Pro-B Natriuret Pep 02/15/20 02/15/20 02/16/20 09:27 09:27 08:47 Creatine Kinase 155 H CK-MB (CK-2) 3.04 Troponin I 0.075 0.052 NT-Pro-B Natriuret Pep Impressions: Chest X-Ray 02/14/20 17:03 IMPRESSION: NO ACUTE RADIOGRAPHIC FINDING IN THE CHEST. Lung Scan-VQ NM 02/14/20 19:18 IMPRESSION: No evidence of acute pulmonary embolism. Assessment and Plan - Diagnosis (1) Chest pain Qualifiers: Chest pain type: unspecified Qualified Code(s): R07.9 - Chest pain, unspecified Is this a current diagnosis for this admission?: Yes Plan: Cardiology input appreciated Patient complaining of spasmodic retrosternal chest pain during exam Patient had recent myocardial perfusion imaging study which was negative for myocardial ischemia Per cardiology, it is not felt that her chest discomfort is NOT related to acute coronary syndrome This may represent esophageal spasm. The patient has an outpatient endoscopy scheduled for February 27 and does not want to wait until then however I discussed with her that endoscopy is a nonurgent and also discussed with her the fact that we do not have a manager strategy & account affiliated with this facility who is construction carpenters helper to do procedures Patient endorses that she felt as if her spasmodic pain was less frequent after starting diltiazem yesterday Increase diltiazem to 30 mg p.o. every 6 hours Schedule Maalox plus 15 cc with viscous lidocaine 15 cc p.o. every 6 hours We will give 1 dose of hydromorphone 0.5 mg IV I have explained to the patient that given her existing polypharmacy including schedule lorazepam that I will not be discharging her home on opioid therapy. She does have a prescription for tramadol which she will take. I did discuss the risks associated with concomitant use of opioids and benzodiazepines. Patient verbalized understanding (2) Elevated troponin Is this a current diagnosis for this admission?: Yes Plan: Troponin is only mildly elevated and trending down This could be related to COPD or HTN As noted above cardiology does not feel like this is public service representative of acute coronary syndrome (3) Shortness of breath Is this a current diagnosis for this admission?: Yes Plan: Patient was not short of breath at the time of exam Likely multifactorial Patient is current smoker with likely underlying COPD Continue fluticasone/Vilanterol 200/25 mcg inhaled daily (4) GERD (gastroesophageal reflux disease) Qualifiers: Esophagitis presence: with esophagitis Qualified Code(s): K21.0 - Gastro- esophageal reflux disease with esophagitis Is this a current diagnosis for this admission?: Yes Plan: Increase pantoprazole to 40 mg p.o. twice daily (5) Hypertension Qualifiers: Hypertension type: essential hypertension Qualified Code(s): I10 - Essential (primary) hypertension Is this a current diagnosis for this admission?: Yes Plan: Adequate BP control Amlodipine stopped in order to trial diltiazem for patient's suspected esophageal spasms which seems to have decreased their frequency Diltiazem crease to 30 mg p.o. every 6 hours Continue metoprolol succinate 25 mg p.o. daily Continue losartan 100 mg p.o. daily (6) Dyslipidemia Is this a current diagnosis for this admission?: Yes Plan: Continue atorvastatin 10 mg p.o. nightly (7) Morbid obesity with BMI of 45.0-49.9, adult Is this a current diagnosis for this admission?: Yes Plan: BMI 49.1 Discussed effects of obesity on overall health (8) Tobacco abuse Is this a current diagnosis for this admission?: Yes Plan: Smoking cessation reinforced - Plan Summary Summary: Patient has extensive psych/anxiety/chronic pain history Continue outpatient medications - Time Time Spent with patient: 25-34 minutes Medications reviewed and adjusted accordingly: Yes Anticipated Discharge Disposition: Home, Self Care Anticipated Discharge Timeframe: within 24 hours
[2020-02-17] MEDS: MAG HYDROX/AL HYDROX/SIMETH SUSP 30 ML UDCUP PO SCH ×2 (13:39→21:03)
[2020-02-17] MEDS: LIDOCAINE 2% VISCOUS SOLN 15 ML UDCUP PO SCH ×2 (13:52→21:03)
[2020-02-17] MEDS ORDERED: HYDROMORPHONE HCL INJ/PF 2 MG/ML AMPULE IV ONE (14:00)
[2020-02-17] MEDS: TRAZODONE HCL 50 MG TABLET PO SCH (21:06)
[2020-02-17] MEDS: ATORVASTATIN CALCIUM 10 MG TABLET PO SCH (21:06)
[2020-02-17] MEDS: QUETIAPINE FUMARATE 100 MG TABLET PO SCH (21:06)
[2020-02-18] MEDS: MAG HYDROX/AL HYDROX/SIMETH SUSP 30 ML UDCUP PO SCH ×3 (02:50→13:06)
[2020-02-18] MEDS: LIDOCAINE 2% VISCOUS SOLN 15 ML UDCUP PO SCH ×3 (02:50→13:08)
[2020-02-18] MEDS: DILTIAZEM HCL 30 MG TABLET PO SCH ×3 (06:25→12:56)
[2020-02-18] MEDS: TRAMADOL HCL 50 MG TABLET PO SCH ×2 (06:25→13:05)
[2020-02-18] MEDS: BUSPIRONE HCL 10 MG TABLET PO SCH ×2 (06:26→13:06)
[2020-02-18] MEDS: HEPARIN SOD (PORCINE) 5,000 UNIT/ML 1 ML VIAL SUBCUT SCH ×2 (06:26→13:07)
[2020-02-18] MEDS: LAMOTRIGINE 100 MG TABLET PO SCH (07:37)
[2020-02-18] MEDS: PROMETHAZINE HCL 25 MG TABLET PO PRN (08:57)
[2020-02-18] MEDS: DOCUSATE SODIUM 100 MG CAPSULE PO SCH (09:00)
[2020-02-18] MEDS: LORAZEPAM 1 MG TABLET PO SCH (09:00)
[2020-02-18] MEDS: DULOXETINE HCL 30 MG CAPSULE.DR PO SCH (09:00)
[2020-02-18] MEDS: METHOCARBAMOL 750 MG TABLET PO SCH ×2 (09:00→13:06)
[2020-02-18] MEDS: PAROXETINE HCL 20 MG TABLET PO SCH (09:00)
[2020-02-18] MEDS: LOSARTAN POTASSIUM 50 MG TABLET PO SCH (09:00)
[2020-02-18] MEDS: METOPROLOL SUCCINATE 25 MG TAB.SR.24H PO SCH (09:00)
[2020-02-18] MEDS: PANTOPRAZOLE SODIUM 40 MG TABLET.DR PO SCH (09:00)
[2020-02-18] MEDS: FLUTICASONE/VILANTEROL 200-25 MCG/DOSE IH SCH (09:01)
--- NOTE | 2020-02-18 11:03 | PDOC DISCHARGE SUMMARY ---
Impression - Admit/DC Date/PCP Admission Date/Primary Care Provider: 02/14/20 20:28 FRANDY DUARTE MD Discharge Date: 02/18/20 - Discharge Diagnosis (1) Chest pain Is this a current diagnosis for this admission?: Yes (2) Elevated troponin Is this a current diagnosis for this admission?: Yes (3) Shortness of breath Is this a current diagnosis for this admission?: Yes (4) GERD (gastroesophageal reflux disease) Is this a current diagnosis for this admission?: Yes (5) Hypertension Is this a current diagnosis for this admission?: Yes (6) Dyslipidemia Is this a current diagnosis for this admission?: Yes (7) Morbid obesity with BMI of 45.0-49.9, adult Is this a current diagnosis for this admission?: Yes (8) Tobacco abuse Is this a current diagnosis for this admission?: Yes - Assessment Summary: Patient has extensive psych/anxiety/chronic pain history Continue outpatient medications - Additional Information Resuscitation Status: Full Code Discharge Diet: Cardiac Discharge Activity: Activity As Tolerated Referrals: FRANDY DUARTE MD [Primary Care Provider] - Follow up as needed Prescriptions: Diltiazem HCl [Cardizem 30 mg Tablet] 30 mg PO Q6 #120 tablet Mag Hydrox/Al Hydrox/Simeth [Maalox Plus Susp 30 Udcup] 15 ml PO Q4H PRN #120 ml PRN Reason: Nicotine [Nicoderm 21 mg/24 Hr Transderm Patch] 1 each TD DAILYP PRN #30 pat [id number] PRN Reason: Pantoprazole Sodium [Protonix [address] Tablet] 40 mg PO BID #60 tablet.dr Lidocaine HCl [Xylocaine 2% Viscous Soln 15 ml Udcup] 5 ml PO Q4H PRN #120 ml PRN Reason: Home Medications: Budesonide/Formoterol Fumarate [Symbicort HFA 160-4.5 mcg Inhaler 6 gm] 2 puff IH Q12 01/31/20 Buspirone HCl [Buspar 10 mg Tablet] 20 mg PO Q8 01/31/20 Duloxetine HCl [Cymbalta 30 mg Capsule.dr] 30 mg PO BID 01/31/20 Lamotrigine [Lamictal] 150 mg PO QHS 01/31/20 Lamotrigine [Lamictal] 200 mg PO QAM 01/31/20 Linaclotide [Linzess 145 Mcg Capsule] 145 mcg PO Q6AM 01/31/20 Lorazepam [Ativan 1 mg Tablet] 1 mg PO DAILY 01/31/20 Methocarbamol [Robaxin 750 mg Tablet] 750 mg PO QID 01/31/20 Metoprolol Succinate [Toprol Xl 25 mg Tab.sr] 25 mg PO DAILY 01/31/20 Paroxetine HCl [Paxil 20 mg Tablet] 20 mg PO DAILY 01/31/20 Quetiapine Fumarate [Seroquel 25 mg Tablet] 150 mg PO QHS 01/31/20 Rosuvastatin Calcium 5 mg PO DAILY 01/31/20 Tramadol HCl [Ultram 50 mg Tablet] 50 mg PO Q8 01/31/20 Olmesartan Medoxomil [Benicar] 40 mg PO DAILY 02/15/20 Promethazine HCl [Phenergan 25 mg Tablet] 25 mg PO Q6HP PRN 02/15/20 Trazodone HCl [Desyrel 50 mg Tablet] 50 mg PO QHS 02/15/20 Diltiazem HCl [Cardizem 30 mg Tablet] 30 mg PO Q6 #120 tablet 02/18/20 Lidocaine HCl [Xylocaine 2% Viscous Soln 15 ml Udcup] 5 ml PO Q4H PRN #120 ml 02/18/20 Mag Hydrox/Al Hydrox/Simeth [Maalox Plus Susp 30 Udcup] 15 ml PO Q4H PRN #120 ml 02/18/20 Nicotine [Nicoderm 21 mg/24 Hr Transderm Patch] 1 each TD DAILYP PRN #30 patch.td24 02/18/20 Pantoprazole Sodium [Protonix [address] Tablet] 40 mg PO BID #60 tablet.dr 02/18/20 History of Present Illiness History of Present Illness: JEET FIGUREOA is a 54 year old female is a 54-year-old female with PMH significant for HTN, dyslipidemia, asthma, COPD, morbid obesity, GERD, arthritis, fibromyalgia, polar disorder, depression, and ongoing tobacco use who presented to the ED with a 1 month history of dyspnea. Additionally she complains of chest discomfort which she describes as both sharp and tight. Of note, she has been hospitalized on numerous occasions as well as had numerous ED visits with the same or similar complaints. The dyspnea is associated with a nonproductive cough as well as a "soreness/rawness" in her throat. In the ED the patient was found to have a slight elevation in her troponin. A cardiology consult with Dr. Nails was initiated. Her pain resolved in the ED with a GI cocktail and fentanyl 50 mg IV x1. She underwent a VQ scan which was negative (this was chosen over CTA 2/ patient's morbid obesity). The hospitalist service was consulted to admit the patient for further evaluation and treatment. Hospital Course Hospital Course: The morning following admission the patient was seen by the spray applicator who did not feel that her chest pain was related to acute coronary syndrome. This was attributed to the fact that her symptoms were atypical, her EKG was nondiagnostic for myocardial ischemia, and she had had a recent myocardial perfusion study which was negative for myocardial ischemia. The patient's serum troponin was only mildly elevated and trending down at the time of cardiology evaluation and it was felt that this could be related to her COPD, dyspnea, and HTN. Her shortness of breath was thought to be related to probable underlying COPD with ongoing tobacco abuse. Over subsequent days the patient on numerous occasions requested intravenous opioids, benzodiazepines, and muscle relaxers. Additionally, she stated that she had an appointment for outpatient endoscopy on 02/28/2020 and demanded that we request a gastroenterology consult to have endoscopy while hospitalized. Given the fact that we do not have GI services in this facility we did make an attempt to reach out to a facility that did have GI services however no facilities were accepting transfers. Given the fact that the patient did have relief with a GI cocktail it was thought that perhaps her pain could be attributed to esophageal spasm. On several occasions she reported improvement/relief of her pain with a combination of Maalox and viscous lidocaine. Given this fact all IV opioids were discontinued however when the patient requested opioid therapy and was informed that she no longer had PRN opioids ordered she reported that the GI cocktail was no longer effective in managing her pain. The patient was on amlodipine which was stopped and she was started on diltiazem 30 mg p.o. every 8 hours. She initially reported some improvement in her pain, but stated that she needed pain medicine to go along with that in order for her pain to be adequately controlled. Her diltiazem was increased to 30 mg p.o. 4 times daily and GI cocktail was scheduled rather than as needed. On the day of discharge it was felt that the patient was medically stable for discharge with outpatient follow-up. She again requested a prescription for opioids, muscle relaxers, and benzodiazepines however, she was informed that she would need to seek outpatient pain management or discuss this with her PCP in order to receive these medications. Physical Exam Vital Signs: Temp Pulse Resp BP Pulse Ox 98.3 F 87 21 H 125/81 95 02/18/20 08:00 02/18/20 08:00 02/18/20 08:00 02/18/20 08:00 02/18/20 08:00 Intake & Output 02/17/20 02/18/20 02/19/20 06:59 06:59 06:59 Intake Total 480 Balance 480 Weight 122.4 kg 123.8 kg General appearance: PRESENT: no acute distress, morbidly obese Head exam: PRESENT: atraumatic, normocephalic Eye exam: PRESENT: conjunctiva pink Mouth exam: PRESENT: moist, tongue midline Neck exam: ABSENT: JVD Respiratory exam: PRESENT: clear to auscultation deonna, decreased breath sounds - Air entry diminished at bases bilaterally, prolonged expiratory phas, symmetrical, unlabored. ABSENT: accessory muscle use Cardiovascular exam: PRESENT: RRR, +S1, +S2 Pulses: PRESENT: normal carotid pulses, normal radial pulses, +1 pedal pulses bilateral Vascular exam: PRESENT: normal capillary refill GI/Abdominal exam: PRESENT: normal bowel sounds, soft. ABSENT: distended, firm, guarding, rebound, rigid, tenderness Rectal exam: PRESENT: deferred Extremities exam: ABSENT: calf tenderness, pedal edema Neurological exam: PRESENT: alert, awake, oriented to person, oriented to place, oriented to time, oriented to situation, CN II-XII grossly intact. ABSENT: motor sensory deficit Psychiatric exam: PRESENT: unusual affect, other - Repeatedly stated that she was discontinued hospital with pain pain medicine Skin exam: PRESENT: dry, normal color, warm Results Laboratory Results: WBC 7.4 10^3/uL (4.0-10.5) 02/15/20 03:05 RBC 4.28 10^6/uL (3.72-5.28) 02/15/20 03:05 Hgb 13.0 g/dL (12.0-15.5) 02/15/20 03:05 Hct 38.0 % (36.0-47.0) 02/15/20 03:05 MCV 89 fl (80-97) 02/15/20 03:05 MCH 30.3 pg (27.0-33.4) 02/15/20 03:05 MCHC 34.1 g/dL (32.0-36.0) 02/15/20 03:05 RDW 13.8 % (11.5-14.0) 02/15/20 03:05 Plt Count 274 10^3/uL (150-450) 02/15/20 03:05 Lymph % (Auto) 33.9 % (13-45) 02/14/20 18:20 Bertie % (Auto) 6.0 % (3-13) 02/14/20 18:20 Eos % (Auto) 2.5 % (0-6) 02/14/20 18:20 Baso % (Auto) 1.1 % (0-2) 02/14/20 18:20 Absolute Neuts (auto) 3.9 10^3/uL (1.7-8.2) 02/14/20 18:20 Absolute Lymphs (auto) 2.3 10^3/uL (0.5-4.7) 02/14/20 18:20 Absolute Monos (auto) 0.4 10^3/uL (0.1-1.4) 02/14/20 18:20 Absolute Eos (auto) 0.2 10^3/uL (0.0-0.6) 02/14/20 18:20 Absolute Basos (auto) 0.1 10^3/uL (0.0-0.2) 02/14/20 18:20 Seg Neutrophils % 56.5 % (42-78) 02/14/20 18:20 D-Dimer 0.71 ug/mL (0.00-0.50) H 02/14/20 18:20 Sodium 140.0 mmol/L (137-145) 02/16/20 08:47 Potassium 4.0 mmol/L (3.6-5.0) 02/16/20 08:47 Chloride 104 mmol/L (98-107) 02/16/20 08:47 Carbon Dioxide 28 mmol/L (22-30) 02/16/20 08:47 Anion Gap 8 (5-19) 08/20/20 08:47 BUN 13 mg/dL (7-20) 02/16/20 08:47 Creatinine 0.82 mg/dL (0.52-1.25) 02/16/20 08:47 Est GFR ( Amer) > 60 (>60) 02/16/20 08:47 Est GFR (MDRD) Non-Af > 60 (>60) 02/16/20 08:47 Glucose 180 mg/dL (75-110) H 02/16/20 08:47 Calcium 9.1 mg/dL (8.4-10.2) 02/16/20 08:47 Magnesium 2.3 mg/dL (1.6-2.3) 02/15/20 03:05 Total Bilirubin 0.6 mg/dL (0.2-1.3) 02/14/20 18:20 Direct Bilirubin 0.0 mg/dL (0.0-0.4) 02/14/20 18:20 Neonat Total Bilirubin Not Reportable 02/14/20 18:20 Neonat Direct Bilirubin Not Reportable 02/14/20 18:20 Neonat Indirect Bili Not Reportable 02/14/20 18:20 AST 28 U/L (14-36) 02/14/20 18:20 ALT 23 U/L (<35) 02/14/20 18:20 Alkaline Phosphatase 119 U/L (38-126) 02/14/20 18:20 Creatine Kinase 155 U/L (30-135) H 02/15/20 09:27 CK-MB (CK-2) 3.04 ng/mL (<4.55) 02/15/20 09:27 Troponin I 0.052 ng/mL 02/16/20 08:47 NT-Pro-B Natriuret Pep 49 pg/mL (<125) 02/14/20 18:20 Total Protein 6.8 g/dL (6.3-8.2) 02/14/20 18:20 Albumin 4.3 g/dL (3.5-5.0) 02/14/20 18:20 Lipase 49.5 U/L (23-300) 02/14/20 18:20 Urine Color YELLOW 02/14/20 19:00 Urine Appearance SLIGHTLY-CLOUDY 02/14/20 19:00 Urine pH 5.0 (5.0-9.0) 02/14/20 19:00 Ur Specific [place] 1.034 02/14/20 19:00 Urine Protein 30 mg/dL (NEGATIVE) H 02/14/20 19:00 Urine Glucose (UA) NEGATIVE mg/dL (NEGATIVE) 02/14/20 19:00 Urine Ketones NEGATIVE mg/dL (NEGATIVE) 02/14/20 19:00 Urine Blood NEGATIVE (NEGATIVE) 02/14/20 19:00 Urine Nitrite NEGATIVE (NEGATIVE) 02/14/20 19:00 Urine Bilirubin MODERATE (NEGATIVE) H 02/14/20 19:00 Urine Urobilinogen NEGATIVE mg/dL (<2.0) 02/14/20 19:00 Ur Leukocyte Esterase LARGE (NEGATIVE) H 02/14/20 19:00 Urine WBC (Auto) 13 /HPF 02/14/20 19:00 Urine RBC (Auto) 1 /HPF 02/14/20 19:00 Urine Bacteria (Auto) TRACE /HPF 02/14/20 19:00 Squamous Epi Cells Auto 17 /HPF 02/14/20 19:00 Urine Mucus (Auto) OCC /LPF 02/14/20 19:00 Urine Ascorbic Acid NEGATIVE (NEGATIVE) 02/14/20 19:00 02/14/20 02/14/20 02/15/20 18:20 22:09 03:05 CK-MB (CK-2) 2.32 2.39 Troponin I 0.141 0.118 0.101 NT-Pro-B Natriuret Pep 49 02/15/20 02/16/20 09:27 08:47 CK-MB (CK-2) 3.04 Troponin I 0.075 0.052 NT-Pro-B Natriuret Pep Impressions: Chest X-Ray 02/14/20 17:03 IMPRESSION: NO ACUTE RADIOGRAPHIC FINDING IN THE CHEST. Lung Scan-VQ NM 02/14/20 19:18 IMPRESSION: No evidence of acute pulmonary embolism. Plan Plan of Treatment: Follow-up with PCP within 1 week of hospital discharge Follow through with outpatient endoscopy in 02/28/2020 Seek outpatient pain management consultation Stroke Is this a Stroke Patient?: No Acute Heart Failure - Is this a Heart Failure Patient?: No
[2020-02-18 12:45] VITALS: BP 126/82
== END 2020-02-18 13:17 | disposition home or self-care (01) ==
LOC: ER 14:56 → INTOOBSV 20:28 → EH 20:28 → 3W 22:30 → 4S 02-15 20:05
PROVIDERS: ADMIT Emergency Medicine; ATTEND Nurse Practitioner
DX: R07.89 Other chest pain (principal); R79.89 Other specified abnormal findings of blood chemistry; R06.02 Shortness of breath; R06.01 Orthopnea; I10 Essential (primary) hypertension; K21.0 Gastro-esophageal reflux disease with esophagitis; E78.5 Hyperlipidemia, unspecified; E66.01 Morbid (severe) obesity due to excess calories; F17.210 Nicotine dependence, cigarettes, uncomplicated; F41.9 Anxiety disorder, unspecified; J44.9 Chronic obstructive pulmonary disease, unspecified; M19.90 Unspecified osteoarthritis, unspecified site; M79.7 Fibromyalgia; R50.9 Fever, unspecified; R42 Dizziness and giddiness; R11.2 Nausea with vomiting, unspecified; F31.9 Bipolar disorder, unspecified; G89.29 Other chronic pain; M54.9 Dorsalgia, unspecified; R53.1 Weakness; R13.10 Dysphagia, unspecified; R05 Cough; Z68.42 Body mass index [BMI] 45.0-49.9, adult; Z79.899 Other long term (current) drug therapy; Z98.1 Arthrodesis status; Z96.653 Presence of artificial knee joint, bilateral; Z82.49 Family history of ischemic heart disease and other diseases of the circulatory system; Z90.49 Acquired absence of other specified parts of digestive tract
CPT/HCPCS: 99406; 93005; 99285; 96374; 36415 ×3; 82553 ×2; 82550 ×2; 83690; 83735 ×2; 85025; 85027; 80048 ×2; 80053; 81001; 84484 ×3; 85379; 83880; 71045; 78580; 93010; 94640; G0378 ×4; A9540; A9270 ×68; J1644 ×5; J3010; J3490 ×10; J1170 ×3; J2060; J2405 ×3; Q9969